=== PATIENT | male | born 1940 | race Caucasian/White ===

== ENCOUNTER → 2018-07-06 08:44 | Outpatient (CLI) | payer MEDICARE, OTHER, SELFPAY ==
[2018-07-06 10:58] LABS: Add Manual Diff / Slide Review NO; Basophils Percent Auto 0.9 % (0-2); Eosinophils Percent Auto 2.3 % (2-4); Hematocrit 43.9 % (41-53); Hemoglobin 15.2 g/dL (13.5-17.5); Lymphocytes Percent Auto 23.2 % (25-40); Mean Corpuscular HGB Conc 34.5 % (30-36); Mean Corpuscular Hemoglobin 32.9 PG (26-34); Mean Corpuscular Volume 95.3 fL (80-100); Monocytes Percent Auto 15.2 % (3-14); Neutrophils Absolute Auto 1900 /uL (3000-5900); Neutrophils Percent Auto 58.4 % (50-75); Platelet Count 241 X10^3/uL (150-400); Red Blood Cell Count 4.61 X10^6/uL (4.5-5.9); Red Cell Distribution Width 14.4 % (11.6-14.8); White Blood Cell Count 3.3 X10^3/uL (4.5-11.0)
[2018-07-06 11:09] LABS: Alanine Aminotransferase 29 IU/L (21-72); Albumin 5.3 g/dL (3.5-5.0); Albumin Globulin Ratio 1.6 (1.0-2.8); Alkaline Phosphatase 65 U/L (38-126); Aspartate Aminotransferase 43 IU/L (17-59); BUN Creatinine Ratio 12.5 (6-22); Bilirubin Total 0.8 mg/dL (0.2-1.3); Blood Urea Nitrogen 15 mg/dL (9-20); Calcium 9.8 mg/dL (8.4-10.2); Carbon Dioxide 31 mmol/L (22-32); Chloride 92 mmol/L (98-107); Cholesterol 206 mg/dL (140-199); Estimated Glomerular Filt Rate 58.7 mL/min (>60); Globulin 3.4 g/dL (1.7-4.1); Glucose 91 mg/dL (80-110); HDL Cholesterol 103 mg/dL (40-60); HEMOLYSIS < 15 (0-50); LDL Cholesterol Calculated 88 mg/dL (<100); Sodium 137 mmol/L (137-145); Total Protein 8.7 g/dL (6.3-8.2); Triglycerides 76 mg/dL (35-150)
[2018-07-06 11:56] LABS: TSH w/ Reflex to FT4 6.22 uIU/mL (0.47-4.68)
[2018-07-06 12:33] LABS: Free T4, Direct Thyroxine 0.94 ng/dL (0.78-2.19)
== END ==
PROVIDERS: Family Provider Family Medicine; PCP Family Medicine; Visit Provider Family Medicine
DX: Z12.5 Encounter for screening for malignant neoplasm of prostate (principal); E03.9 Hypothyroidism, unspecified; E78.5 Hyperlipidemia, unspecified; I10 Essential (primary) hypertension
CPT/HCPCS: 36415; 80053; 80061; 84153; 84439; 84443; 85025

== ENCOUNTER → 2018-08-31 09:19 | Outpatient (CLI) | payer MEDICARE, OTHER, SELFPAY ==
--- NOTE | 2018-08-31 11:58 | DI.CT.S_ITS ---
PROCEDURE: CT CHEST ABD PEL W CON INDICATIONS: surveillance melonoma TECHNIQUE: After the administration of oral and intravenous contrast, 5 mm thick sections acquired from the lung apices to the symphysis. 5 mm coronal and sagittal reformats were performed, with additional 7 mm coronal MIP reformats through the lungs. For radiation dose reduction, the following was used: automated exposure control, adjustment of mA and/or kV according to patient size. COMPARISON: [facility], CT, CT NECK CHEST ABD PELVIS W CON, 11/27/2016, 12:29. [facility], NM, NM BONE SCAN WHOLE BODY, 11/20/2016, 14:32. [facility], CT, CT NECK CHEST ABD PELVIS W CON, 05/29/2016, 13:03. [facility], CT, CT NECK CHEST ABD PELVIS W CON, 11/22/2015, 12:13. [facility], CT, CT NECK CHEST ABDOMEN PELVIS WITH CONTRAST, 09/03/2017, 12:22. FINDINGS: Image quality: Excellent. CHEST: Lungs and pleura: No acute consolidation. Scattered subsegmental atelectasis and/or scarring No pleural effusions or pneumothorax. Central and peripheral airways appear patent and normal in caliber. Mediastinum: Heart size is normal. Coronary artery calcifications are present. No pericardial effusion. No mediastinal or hilar adenopathy by size criteria. Thoracic aorta and central pulmonary arteries are normal in size. Esophagus is normal in caliber. No hiatal hernia. Chest wall: No axillary or supraclavicular adenopathy by size criteria. Thyroid gland negative. ABDOMEN: Solid organs: Liver is normal in size and enhancement. Gallbladder negative. Biliary system is non dilated. Pancreas enhances normally. Spleen is normal in size and enhancement. No left adrenal nodules. Status post right nephrectomy as before. No hydronephrosis. Mildly dilated appearance of the left ureter as before. Unchanged appearance of the left kidney. Peritoneum and bowel: Bowel loops demonstrate normal wall thickness and caliber. No free fluid or air. Colonic diverticulosis is seen without evidence of acute complication. Nodes and vessels: No retroperitoneal or mesenteric adenopathy by size criteria. Aorta and inferior vena cava are normal in size. Miscellaneous: No ventral hernias. PELVIS: Genitourinary: Miscellaneous: No inguinal hernias or adenopathy. Bones: No suspicious bony lesions. No vertebral body compression fractures. IMPRESSION: Overall, grossly stable examination without evidence of active metastatic disease. Status post right nephrectomy. Incidental colonic diverticulosis. Coronary artery disease. Dictated by: Dimitry Osborne M.D. on 08/31/2018 at 14:34 Approved by: Dimitry Osborne M.D. on 08/31/2018 at 14:49
[2018-08-31] MEDS: SODIUM CHLORIDE 0.9% 1,000 ML 500 ML IV (13:46)
== END ==
PROVIDERS: Family Provider Family Medicine; PCP Family Medicine
DX: C34.91 Malignant neoplasm of unspecified part of right bronchus or lung (principal); C64.9 Malignant neoplasm of unspecified kidney, except renal pelvis; C76.0 Malignant neoplasm of head, face and neck; I25.10 Atherosclerotic heart disease of native coronary artery without angina pectoris; K57.90 Diverticulosis of intestine, part unspecified, without perforation or abscess without bleeding
CPT/HCPCS: 70491; 71260; 74177; 80053; 85025; 96360; 96361; Q9967

== ENCOUNTER → 2019-07-12 08:47 | Outpatient (CLI) | payer MEDICARE, OTHER, SELFPAY ==
[2019-07-12 09:34] LABS: Add Manual Diff / Slide Review NO; Basophils Absolute Auto 0 /uL (0-100); Eosinophils Absolute Auto 300 /uL (0-450); Eosinophils Percent Auto 6.9 % (2-4); Hematocrit 43.2 % (41-53); Hemoglobin 14.9 g/dL (13.5-17.5); Lymphocytes Absolute Auto 700 /uL (1100-4500); Lymphocytes Percent Auto 18.9 % (25-40); Mean Corpuscular HGB Conc 34.6 % (30-36); Mean Corpuscular Hemoglobin 33.6 PG (26-34); Mean Corpuscular Volume 97.2 fL (80-100); Monocytes Absolute Auto 500 /uL (0-900); Monocytes Percent Auto 14.7 % (3-14); Neutrophils Absolute Auto 2100 /uL (1500-7000); Neutrophils Percent Auto 58.5 % (50-75); Platelet Count 235 X10^3/uL (150-400); Red Blood Cell Count 4.44 X10^6/uL (4.5-5.9); Red Cell Distribution Width 13.2 % (11.6-14.8); White Blood Cell Count 3.6 X10^3/uL (4.5-11.0)
[2019-07-12 10:03] LABS: Alanine Aminotransferase 20 IU/L (21-72); Albumin 4.9 g/dL (3.5-5.0); Albumin Globulin Ratio 1.5 (1.0-2.8); Alkaline Phosphatase 67 U/L (38-126); Aspartate Aminotransferase 48 IU/L (17-59); Bilirubin Total 0.9 mg/dL (0.2-1.3); Blood Urea Nitrogen 15 mg/dL (9-20); Calcium 9.6 mg/dL (8.4-10.2); Carbon Dioxide 30 mmol/L (22-32); Chloride 86 mmol/L (98-107); Cholesterol 212 mg/dL (140-199); Estimated Glomerular Filt Rate > 60.0 mL/min (>60); Globulin 3.2 g/dL (1.7-4.1); Glucose 107 mg/dL (80-110); HDL Cholesterol 94 mg/dL (40-60); HEMOLYSIS < 15 (0-50); LDL Cholesterol Calculated 103 mg/dL (<100); Potassium 4.6 mmol/L (3.4-5.1); Sodium 129 mmol/L (137-145); Total Protein 8.1 g/dL (6.3-8.2); Triglycerides 77 mg/dL (35-150)
[2019-07-12 10:30] LABS: TSH w/ Reflex to FT4 5.65 uIU/mL (0.47-4.68)
[2019-07-12 10:55] LABS: Free T4, Direct Thyroxine 0.84 ng/dL (0.78-2.19)
== END ==
PROVIDERS: PCP Family Medicine; Visit Provider Family Medicine
DX: E78.5 Hyperlipidemia, unspecified (principal); I10 Essential (primary) hypertension
CPT/HCPCS: 36415; 80053; 80061; 84439; 84443; 85025

== ENCOUNTER → 2019-08-30 10:31 | Outpatient (CLI) | payer MEDICARE, OTHER, SELFPAY ==
--- NOTE | 2019-08-30 10:50 | DI.CT.S_ITS ---
PROCEDURE: CT CHEST ABD PEL W CON INDICATIONS: Surveillance kidney cancer, melanoma TECHNIQUE: After the administration of oral and intravenous contrast, 5 mm thick sections acquired from the lung apices to the symphysis. 5 mm coronal and sagittal reformats were performed, with additional 7 mm coronal MIP reformats through the lungs. For radiation dose reduction, the following was used: automated exposure control, adjustment of mA and/or kV according to patient size. COMPARISON: CT, CT NECK CHEST ABD PELVIS W CON, 05/29/2016, 13:03. [facility], CT, CT SOFT TISSUE NECK W CON, 08/31/2018, 11:39. [facility], DC, DC BONE SCAN WHOLE BODY, 01/07/2018, 13:57. [facility], CT, CT NECK CHEST ABDOMEN PELVIS WITH CONTRAST, 09/03/2017, 12:22. CT, CT NECK CHEST ABD PELVIS W CON, 11/27/2016, 12:29. [place], DC BONE SCAN WHOLE BODY, 11/20/2016, 14:32. [facility], CT, CT CHEST ABD PEL W CON, 08/31/2018, 11:39. FINDINGS: Image quality: Excellent. CHEST: Lungs and pleura: Scattered subsegmental atelectasis and/or scarring. No focal consolidation No pleural effusions or pneumothorax. Central and peripheral airways appear patent and normal in caliber. Mediastinum: Heart size is normal. No pericardial effusion. No mediastinal or hilar adenopathy by size criteria. Thoracic aorta and central pulmonary arteries are normal in size. Esophagus is normal in caliber. No hiatal hernia. Chest wall: No axillary or supraclavicular adenopathy by size criteria. Thyroid gland negative. ABDOMEN: Solid organs: Hepatic steatosis. No focal hepatic lesion. Gallbladder contracted otherwise unremarkable. Biliary system is non dilated. Pancreas enhances normally. Spleen is normal in size and enhancement. No adrenal nodules. Status post right nephrectomy as before. No hydronephrosis. Mildly prominent appearance of the left ureter however this is unchanged. Peritoneum and bowel: Bowel loops demonstrate normal wall thickness and caliber. No free fluid or air. Multiple colonic diverticulosis. Nodes and vessels: No retroperitoneal or mesenteric adenopathy by size criteria. Aorta and inferior vena cava are normal in size. Miscellaneous: No ventral hernias. PELVIS: Genitourinary: Bladder unremarkable Miscellaneous: Small right fat containing inguinal hernia. No pelvic adenopathy. Bones: No suspicious bony lesions. No vertebral body compression fractures. IMPRESSION: Overall, stable examination without evidence of active metastatic disease. Hepatic steatosis. Status post right nephrectomy. Incidental colonic diverticulosis. Dictated by: Dimitry Osborne M.D. on 08/30/2019 at 17:04 Approved by: Dimitry Osborne M.D. on 08/30/2019 at 17:11
[2019-08-30 11:14] LABS: BUN Creatinine Ratio 11.8 (6-22); Blood Urea Nitrogen 13 mg/dL (9-20); Estimated Glomerular Filt Rate > 60.0 mL/min (>60)
== END ==
PROVIDERS: Family Provider Family Medicine; PCP Family Medicine
DX: C43.9 Malignant melanoma of skin, unspecified (principal); C64.1 Malignant neoplasm of right kidney, except renal pelvis; K76.0 Fatty (change of) liver, not elsewhere classified; K57.90 Diverticulosis of intestine, part unspecified, without perforation or abscess without bleeding; K40.90 Unilateral inguinal hernia, without obstruction or gangrene, not specified as recurrent; Z90.5 Acquired absence of kidney
CPT/HCPCS: 36415; 71260; 74177; 82565; 84520; Q9967

== ENCOUNTER 2020-05-30 12:18 | Inpatient (IN) | payer MEDICARE, OTHER, SELFPAY ==
[2020-05-30] VITALS (14 sets, daily range): BP systolic 118–170; BP diastolic 61–90; PULSE 84–110; RESP 12–23; TEMP 36.4–36.7; O2SAT 95–100; BMI 26.4
--- NOTE | 2020-05-30 12:29 | ED.GENADULT ---
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 Four days ago he noticed a moderate size(tennis ball sized) blood clot after having a bowel movement that he describes as fairly usual. Over the ensuing 3 days he has had continued red blood mixed with his stool with his bowel movements. He has not noted any bleeding without a bowel movement. He complains of no chest pain, orthopnea, dyspnea, palpitations, abdominal pain, dysuria, hemorrhoids or rectal pain. He has had no epigastric pain or vomiting. States that he has been off Plavix for a number of years and takes no other blood thinners. Related Data Home Medications Medication Instructions Recorded Confirmed Restasis 1 drp OPHTH BID #0 07/12/16 05/03/20 neomycin-polymyxin B-dexameth 1 drp OPHTH QID #0 06/13/17 05/03/20 [Maxitrol] sodium chloride 1 gm PO DAILY #0 01/13/18 05/03/20 melatonin 5 mg PO BEDTIME PRN 02/10/19 05/03/20 hydrocortisone 1 lesley TP DAILY 09/01/19 05/03/20 Previous Rx's Medication Instructions Recorded betamethasone, augmented 1 lesley TOPICAL BID #1 tube 07/12/16 aspirin 81 mg PO QDAY #90 tab 10/07/17 rosuvastatin 10 mg tablet 10 mg .ROUTE DAILY #90 tab 08/17/19 mirtazapine 30 mg tablet 30 mg PO HS #90 tab 02/10/20 lisinopril 10 mg tablet 10 mg PO DAILY #90 tab 02/15/20 zolpidem 10 mg tablet 10 mg PO BEDTIME #30 tab 03/22/20 hydrochlorothiazide 25 mg tablet See Rx Instructions PO DAILY #135 03/23/20 tab Allergies Allergy/AdvReac Type Severity Reaction Status Date / Time No Known Drug Allergies Allergy Verified 05/30/20 12:29 Review of Systems Review of Systems Narrative: Pertinent positive and negative findings as per HPI Remainder of review of systems is otherwise unremarkable for Constitutional: Fevers, chills, weakness ENT: No sore throat, neck pain, ear pain : Dysuria, hematuria, flank pain MS: Muscle weakness, numbness, joint swelling or warmth Neuro: Syncope, dizziness, tingling 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) Diverticulosis of large intestine without hemorrhage (Chronic 01/13/18) Essential hypertension (Chronic 02/27/11) Hearing loss (Chronic) Hyperlipidemia (Chronic 02/27/11) Hypertension (Chronic) Hyponatremia (Inactive) Kidney disease (Chronic ~12/2014) Measles (Resolved) Melanoma (Chronic ~09/2014) Melanoma (Inactive) Mumps (Resolved) Neoplasm of kidney (Resolved 12/01/14) Peripheral vascular disease (Chronic ~12/2014) Rosacea (Chronic) Scoliosis (Chronic ~09/2014) Skin cancer of anterior chest (Inactive) Skin cancer of forehead (Inactive) Status post nephrectomy (Inactive 02/02/15) TIA (transient ischemic attack) (Chronic) Tinnitus (Chronic) Surgical History Anesthesia (Resolved) History of kidney removal (Inactive) History of nephrectomy (11/25/14) Surgical procedure planned (Resolved ~09/2014) Social History marital status: Smoking Status: Never smoker alcohol intake: current substance use type: does not use Smoking Status: Never smoker alcohol intake frequency: 0-2 drinks per day Substance Use Type: does not use Exam Narrative Exam Narrative: General: Healthy appearing, in no acute distress. Able to give a complete and coherent history. Well-nourished well-developed HEENT: Slightly pale, Moist mucous membranes, normal sclera with reactive pupils, Neck: No JVD, supple Respiratory: Lungs are clear to auscultation, no wheezing no rales no rhonchi. Full and symmetrical air movement Cardiac: Regular rate and rhythm no murmurs no bruits Abdomen: Soft nontender good bowel tones, no flank pain Skin: Warm and dry, no rashes Neurologic: Grossly neurologically intact with no obvious asymmetries or abnormalities Extremities: No trauma, well perfused Psych: Cooperative, appropriate insight and affect Initial Vital Signs Initial Vital Signs: Vital Signs Pulse Oximetry 97 05/30/20 12:27 Course Orders Ordered: ED Orders 05/30/20 12:30 Complete Blood Count AUTO DIFF Stat Comprehensive Metabolic Panel Stat Troponin I Stat Type and Screen Stat Discontinued Medications Sodium Chloride (Normal Saline 0.9%) 1,000 mls @ 1,000 mls/hr IV BOLUS ONE Stop: 05/30/20 13:55 Last Infusion: 05/30/20 15:12 Dose: 0 mls/hr Documented by: Admin: 05/30/20 13:29 Dose: 1,000 mls/hr Documented by: CAMILA Vital Signs Vital signs: Vital Signs - 8 hr 05/30/20 12:27 05/30/20 12:29 05/30/20 12:30 Temperature 98.0 F Pulse Rate 110 H 104 H Respiratory Rate 15 22 Blood Pressure 153/74 H 134/74 Pulse Oximetry 97 97 98 05/30/20 13:00 05/30/20 13:30 05/30/20 14:00 Temperature Pulse Rate 96 H 93 H 89 Respiratory Rate 16 21 13 Blood Pressure 121/61 132/72 125/67 Pulse Oximetry 97 96 97 05/30/20 14:30 05/30/20 15:00 Temperature Pulse Rate 95 H 88 Respiratory Rate 13 18 Blood Pressure Pulse Oximetry 100 99 Medical Decision Making Medical Records Medical records reviewed: Yes I reviewed the patient's medical records. Lab Data Lab results reviewed: Yes I reviewed the patient's lab results. Result diagrams: 05/30/20 12:30 05/30/20 12:30 Labs: Lab Results 05/30/20 05/30/20 05/30/20 Range/Units 12:30 12:30 12:30 WBC 6.6 (4.5-11.0) X10^3/uL RBC 2.70 L (4.5-5.9) X10^6/uL Hgb 9.1 L (13.5-17.5) g/dL Hct 26.3 L (41-53) % MCV 97.2 (80-100) fL MCH 33.8 (26-34) PG MCHC 34.8 (30-36) % RDW 13.2 (11.6-14.8) % Plt Count 213 (150-400) X10^3/uL Neut % (Auto) 79.3 H (50-75) % Lymph % (Auto) 9.5 L (25-40) % [place] % (Auto) 10.2 (3-14) % Eos % (Auto) 0.6 L (2-4) % Baso % (Auto) 0.4 (0-2) % Neut # (Auto) 5200 (4478-7122) /uL Lymph # (Auto) 600 L (7012-7749) /uL [place] # (Auto) 700 (0-900) /uL Eos # (Auto) 0 (0-450) /uL Baso # (Auto) 0 (0-100) /uL Sodium 128 L (137-145) mmol/L Potassium 4.1 (3.4-5.1) mmol/L Chloride 91 L (98-107) mmol/L Carbon Dioxide 27 (22-32) mmol/L BUN 19 (9-20) mg/dL Creatinine 1.29 H (0.66-1.25) mg/dL Estimated GFR 53.7 L (>60) mL/min BUN/Creatinine Ratio 14.7 (6-22) Glucose 117 H (80-110) mg/dL Calcium 9.2 (8.4-10.2) mg/dL Total Bilirubin 0.3 (0.2-1.3) mg/dL AST 44 (17-59) IU/L ALT 25 (<50) IU/L Alkaline Phosphatase 60 (38-126) U/L Troponin I (0.01-0.034) ng/mL Total Protein 7.3 (6.3-8.2) g/dL Albumin 4.4 (3.5-5.0) g/dL Globulin 2.9 (1.7-4.1) g/dL Albumin/Globulin Ratio 1.5 (1.0-2.8) Blood Type A Positive Antibody Screen Negative 05/30/20 Range/Units 12:30 WBC (4.5-11.0) X10^3/uL RBC (4.5-5.9) X10^6/uL Hgb (13.5-17.5) g/dL Hct (41-53) % MCV (80-100) fL MCH (26-34) PG MCHC (30-36) % RDW (11.6-14.8) % Plt Count (150-400) X10^3/uL Neut % (Auto) (50-75) % Lymph % (Auto) (25-40) % [place] % (Auto) (3-14) % Eos % (Auto) (2-4) % Baso % (Auto) (0-2) % Neut # (Auto) (7619-0431) /uL Lymph # (Auto) (5287-0957) /uL [place] # (Auto) (0-900) /uL Eos # (Auto) (0-450) /uL Baso # (Auto) (0-100) /uL Sodium (137-145) mmol/L Potassium (3.4-5.1) mmol/L Chloride (98-107) mmol/L Carbon Dioxide (22-32) mmol/L BUN (9-20) mg/dL Creatinine (0.66-1.25) mg/dL Estimated GFR (>60) mL/min BUN/Creatinine Ratio (6-22) Glucose (80-110) mg/dL Calcium (8.4-10.2) mg/dL Total Bilirubin (0.2-1.3) mg/dL AST (17-59) IU/L ALT (<50) IU/L Alkaline Phosphatase (38-126) U/L Troponin I < 0.012 (0.01-0.034) ng/mL Total Protein (6.3-8.2) g/dL Albumin (3.5-5.0) g/dL Globulin (1.7-4.1) g/dL Albumin/Globulin Ratio (1.0-2.8) Blood Type Antibody Screen MDM Narrative Medical decision making narrative: 79-year-old gentleman presents with 4 days of rectal bleeding, bright red blood mixed in with stool. General malaise but no palpitation, chest pain or significant dyspnea. Prior history of diverticular bleeding with most recent colonoscopy in 2017 notable for diverticulosis. H&H is June 2019 and is 14.9/43.2 today is 9.1/26.3 He remains relatively asymptomatic at this point and I do not believe transfusion is required. Was mildly tachycardic and he was given a L of fluid. Believe that admission for observation will be appropriate. Will contact surgery to begin. 2:57 Dr Rose will be happy to consult. Requests that Dr Solorzano (or admtting doc) put in consult order if they do want a formal consult. Care is reviewed with Dr. Ochoa who will admit the patient. Discharge Plan Departure Patient Disposition: Admitted As Inpatient Admit Date/Time: 05/30/20 15:22 Admit Provider: No Ochoa
[2020-05-30 13:03] LABS: Add Manual Diff / Slide Review NO; Basophils Absolute Auto 0 /uL (0-100); Basophils Percent Auto 0.4 % (0-2); Eosinophils Absolute Auto 0 /uL (0-450); Eosinophils Percent Auto 0.6 % (2-4); Hematocrit 26.3 % (41-53); Hemoglobin 9.1 g/dL (13.5-17.5); Lymphocytes Absolute Auto 600 /uL (1100-4500); Lymphocytes Percent Auto 9.5 % (25-40); Mean Corpuscular HGB Conc 34.8 % (30-36); Mean Corpuscular Hemoglobin 33.8 PG (26-34); Mean Corpuscular Volume 97.2 fL (80-100); Monocytes Absolute Auto 700 /uL (0-900); Monocytes Percent Auto 10.2 % (3-14); Neutrophils Absolute Auto 5200 /uL (1500-7000); Neutrophils Percent Auto 79.3 % (50-75); Platelet Count 213 X10^3/uL (150-400); Red Cell Distribution Width 13.2 % (11.6-14.8); White Blood Cell Count 6.6 X10^3/uL (4.5-11.0)
[2020-05-30 13:08] LABS: Alanine Aminotransferase 25 IU/L (<50); Albumin 4.4 g/dL (3.5-5.0); Albumin Globulin Ratio 1.5 (1.0-2.8); Alkaline Phosphatase 60 U/L (38-126); Aspartate Aminotransferase 44 IU/L (17-59); BUN Creatinine Ratio 14.7 (6-22); Bilirubin Total 0.3 mg/dL (0.2-1.3); Blood Urea Nitrogen 19 mg/dL (9-20); Calcium 9.2 mg/dL (8.4-10.2); Carbon Dioxide 27 mmol/L (22-32); Chloride 91 mmol/L (98-107); Estimated Glomerular Filt Rate 53.7 mL/min (>60); Globulin 2.9 g/dL (1.7-4.1); Glucose 117 mg/dL (80-110); HEMOLYSIS < 15 (0-50); Potassium 4.1 mmol/L (3.4-5.1); Sodium 128 mmol/L (137-145); Total Protein 7.3 g/dL (6.3-8.2)
[2020-05-30 13:20] LABS: Troponin I < 0.012 ng/mL (0.01-0.034)
[2020-05-30] MEDS: SODIUM CHLORIDE 0.9% 1,000 ML 1000 ML IV (13:29)
[2020-05-30 16:05] LABS: COVID19 -Nasal RAPID Negative (Negative)
[2020-05-30] MEDS: SODIUM CHLORIDE 0.9% 1,000 ML 75 ML IV (16:44)
[2020-05-30 17:00] LABS: Add Manual Diff / Slide Review NO; Basophils Absolute Auto 0 /uL (0-100); Basophils Percent Auto 0.5 % (0-2); Eosinophils Absolute Auto 0 /uL (0-450); Eosinophils Percent Auto 0.8 % (2-4); Hemoglobin 8.8 g/dL (13.5-17.5); Lymphocytes Absolute Auto 800 /uL (1100-4500); Lymphocytes Percent Auto 16.6 % (25-40); Mean Corpuscular Hemoglobin 34.1 PG (26-34); Mean Corpuscular Volume 97.5 fL (80-100); Monocytes Absolute Auto 600 /uL (0-900); Monocytes Percent Auto 11.2 % (3-14); Neutrophils Absolute Auto 3600 /uL (1500-7000); Neutrophils Percent Auto 70.9 % (50-75); Platelet Count 189 X10^3/uL (150-400); Red Blood Cell Count 2.57 X10^6/uL (4.5-5.9); Red Cell Distribution Width 13.2 % (11.6-14.8); White Blood Cell Count 5.1 X10^3/uL (4.5-11.0)
--- NOTE | 2020-05-30 17:20 | PM.HP.1 ---
History of Present Illness History of Present Illness Date Patient Seen: 05/30/20 Time Patient Seen: 16:30 Chief complaint: RECTAL BLEEDING SINCE LAST FRIDAY Narrative: Pt is a 79yo man with HTN, hyperlipidemia, hyponatremia, hx of diverticulitis and diverticular bleed, hx of CVA on baby aspirin alone, and hx of CABG who presents with rectal bleeding. The pt reports that he usually has 2 BMs/day, stimulated by a glycerin suppository. He states that the morning of 05/26, with his first BM, he had a significant clot that passed, around the size of a baseball. He additionally had some bright red blood. He then continued to have bleeding with his next BM in the day. 05/27, 05/28, and 05/29 he continued to have bleeding, although progressively less. This morning, with his first BM there was not blood, however with his second BM there was again blood. All of the blood passed has been bright red to darker red in color. he denies any melena. He denies any significant abdominal pain. He denies any bleeding between his BMs. He does report feeling a fatigued today, but denies any overt lightheadedness. He denies any SOB, chest pain, palpitations. He reports that it is not uncommon for him to have a small amount of blood in his stool on occasion, but it is not usually this severe, and usually is just for one BM, not multiple consecutively. The pt was hospitalized with a presumed diverticular bleed in 2016 with a precipitous drop in his H/H. He was transfused 2 units of PRBCs at the time, and underwent upper and lower endoscopy, which revealed extensive diverticulitis, but no active bleeding. 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) Diverticulosis of large intestine without hemorrhage (Chronic 01/13/18) Essential hypertension (Chronic 02/27/11) Hearing loss (Chronic) Hyperlipidemia (Chronic 02/27/11) Hypertension (Chronic) Hyponatremia (Inactive) Kidney disease (Chronic ~12/2014) Measles (Resolved) Melanoma (Chronic ~09/2014) Melanoma (Inactive) Mumps (Resolved) Neoplasm of kidney (Resolved 12/01/14) Peripheral vascular disease (Chronic ~12/2014) Rosacea (Chronic) Scoliosis (Chronic ~09/2014) Skin cancer of anterior chest (Inactive) Skin cancer of forehead (Inactive) Status post nephrectomy (Inactive 02/02/15) TIA (transient ischemic attack) (Chronic) Tinnitus (Chronic) Surgical History Anesthesia (Resolved) History of kidney removal (Inactive) History of nephrectomy (11/25/14) Surgical procedure planned (Resolved ~09/2014) Family & Social History Social History: household members none Prior Living Arrangements House Safety & Behavioral: Feels Safe in Current Yes Environment Been Physically Hurt or No Threatened By a Person Suicidal Ideation Description None Suicide Plan Description No Plan Tobacco & Substance use: Smoking Status Never smoker alcohol intake current alcohol intake frequency 0-2 drinks per day Substance Use Type does not use Meds Home Medications and Allergies Home Medications Medication Instructions Recorded Confirmed Type Restasis 1 drp OPHTH BID #0 07/12/16 05/03/20 History betamethasone, augmented 1 lesley TOPICAL BID #1 tube 07/12/16 05/03/20 Rx aspirin 81 mg PO QDAY #90 tab 10/07/17 05/03/20 Rx sodium chloride 1 gm PO DAILY #0 01/13/18 05/03/20 History melatonin 5 mg PO BEDTIME PRN 02/10/19 05/03/20 History rosuvastatin 10 mg tablet 10 mg .ROUTE DAILY #90 tab 08/17/19 05/03/20 Rx mirtazapine 30 mg tablet 30 mg PO HS #90 tab 02/10/20 05/03/20 Rx lisinopril 10 mg tablet 10 mg PO DAILY #90 tab 02/15/20 05/03/20 Rx zolpidem 10 mg tablet 10 mg PO BEDTIME #30 tab 03/22/20 05/03/20 Rx hydrochlorothiazide 25 mg tablet See Rx Instructions PO DAILY #135 03/23/20 05/03/20 Rx tab Allergies Allergy/AdvReac Type Severity Reaction Status Date / Time No Known Drug Allergies Allergy Verified 05/30/20 12:29 Exam Vital Signs (past 8 hours): - 05/30/20 12:27 05/30/20 12:29 05/30/20 12:30 Temperature 98.0 F Pulse Rate 110 H 104 H Respiratory Rate 15 22 Blood Pressure 153/74 H 134/74 Pulse Oximetry 97 97 98 05/30/20 13:00 05/30/20 13:30 05/30/20 14:00 Temperature Pulse Rate 96 H 93 H 89 Respiratory Rate 16 21 13 Blood Pressure 121/61 132/72 125/67 Pulse Oximetry 97 96 97 05/30/20 14:30 05/30/20 15:00 05/30/20 15:30 Temperature Pulse Rate 95 H 88 92 H Respiratory Rate 13 18 23 Blood Pressure Pulse Oximetry 100 99 97 05/30/20 15:41 05/30/20 16:00 05/30/20 17:05 Temperature 97.6 F Pulse Rate 90 86 99 H Respiratory Rate 20 12 20 Blood Pressure 170/90 H 145/78 H 146/89 H Pulse Oximetry 98 96 99 Oxygen Delivery Method Room Air Narrative Exam Narrative: GEN - alert, cooperative and no distress HEENT - normocephalic and atraumatic, sclera white, conjunctiva pale NECK - FROM, no adenopathy, no JVD HEART - RRR, S1, S2 normal, no S3 or S4, no murmurs LUNGS - symmetric chest rise, no accessory muscles, clear to auscultation bilaterally ABD - nondistended, normal bowel sounds, soft, nontender and no hepatomegaly, splenomegaly or masses EXT - no cyanosis, clubbing or edema SKIN - no rashes or suspicious lesions NEURO - no gross deficits Objective Labs Result Diagrams: 05/30/20 16:55 05/30/20 12:30 Labs: Laboratory Results - last 24 hr 05/30/20 05/30/20 05/30/20 12:30 12:30 12:30 WBC 6.6 RBC 2.70 L Hgb 9.1 L Hct 26.3 L MCV 97.2 MCH 33.8 MCHC 34.8 RDW 13.2 Plt Count 213 Neut % (Auto) 79.3 H Lymph % (Auto) 9.5 L [place] % (Auto) 10.2 Eos % (Auto) 0.6 L Baso % (Auto) 0.4 Neut # (Auto) 5200 Lymph # (Auto) 600 L [place] # (Auto) 700 Eos # (Auto) 0 Baso # (Auto) 0 Sodium 128 L Potassium 4.1 Chloride 91 L Carbon Dioxide 27 BUN 19 Creatinine 1.29 H Estimated GFR 53.7 L BUN/Creatinine Ratio 14.7 Glucose 117 H Calcium 9.2 Total Bilirubin 0.3 AST 44 ALT 25 Alkaline Phosphatase 60 Troponin I Total Protein 7.3 Albumin 4.4 Globulin 2.9 Albumin/Globulin Ratio 1.5 COVID-19 PCR Blood Type A Positive Antibody Screen Negative 05/30/20 05/30/20 05/30/20 12:30 15:40 16:55 WBC 5.1 RBC 2.57 L Hgb 8.8 L Hct 25.0 L MCV 97.5 MCH 34.1 H MCHC 35.0 RDW 13.2 Plt Count 189 Neut % (Auto) 70.9 Lymph % (Auto) 16.6 L [place] % (Auto) 11.2 Eos % (Auto) 0.8 L Baso % (Auto) 0.5 Neut # (Auto) 3600 Lymph # (Auto) 800 L [place] # (Auto) 600 Eos # (Auto) 0 Baso # (Auto) 0 Sodium Potassium Chloride Carbon Dioxide BUN Creatinine Estimated GFR BUN/Creatinine Ratio Glucose Calcium Total Bilirubin AST ALT Alkaline Phosphatase Troponin I < 0.012 Total Protein Albumin Globulin Albumin/Globulin Ratio COVID-19 PCR Negative Blood Type Antibody Screen Assessment & Plan Assessment & Plan narrative: Pt is a 79yo man with HTN, hyperlipidemia, hyponatremia, hx of diverticulitis and diverticular bleed, hx of CVA on baby aspirin alone, and hx of CABG who presents with GI bleeding, presumed lower GI based on character and hx of extensive diverticulitis. 1) GI bleed: Hemodynamically stable, but with significant drop in H/H at admission. Symptomatically, bleeding had slowed - but then increased again late morning today. Tachycardia in the ED now improved. - Surgery consulted, appreciate care - Continue to monitor H/H closely - No transfusion for now, however low threshold to transfuse if H/H drops further due to hx of heart disease - NPO for now 2) CM: Most likely due to volume depletion. S/P 1L NS in the ED. - Continue mIVF overnight - Repeat BMP in the AM 3) Hyponatremia: Stable - Continue NaCl tablet 4) HTN, Hyperlipidemia: - Continue home HCTZ, Lisinopril, Rosuvastatin - Hold home Aspirin FEN: NPO DVT prophylaxis: SCDs Dispo: Pending BMs without bleeding, stabilizatiion of H/H, advancing diet. Anticipate 2 midnights.
--- NOTE | 2020-05-30 17:26 | P.CONS_ITS ---
History of Present Illness Consult details Date Patient Seen: 05/30/20 Time Patient Seen: 17:30 Chief complaint: RECTAL BLEEDING SINCE LAST FRIDAY Requesting provider: No Ochoa Narrative: This is a 79yo man with HTN, hyperlipidemia, hyponatremia, hx of diverticulosis and suspected diverticular bleed in 2017, hx of CVA, takes ASA, hx of CABG. He presented to the ER today with rectal bleeding which started four days ago. On that day passed a baseball sized clot. Since then he continues to have intermittent BRPBR. He reports that his bleeding has been progressively less. This morning, with his first BM there was no blood, however with his second BM there was again blood. All of the blood passed has been bright red to darker red in color. he denies any melena. He denies any significant abdominal pain or rectal pain. He says he has some hemorrhoids which he treats with hemorrhoid cream which takes care of his symptoms. He reports that it is not uncommon for him to have a small amount of blood in his stool on occasion, but it is not usually this severe, and usually is just for one BM, not multiple consecutively. The pt was hospitalized with a presumed diverticular bleed in 2017 with a precipitous drop in his H/H. He was transfused 2 units of PRBCs at the time, and underwent upper and lower endoscopy, which revealed extensive diverticulitis, but no active bleeding. Diverticular bleed was suspected since there was bright red blood mixed with stool in his colon. The prep was very poor and a bleeding locus was not identified. ROS: He reports feeling a fatigued today, but denies any overt lightheadedness. He denies any SOB, chest pain, palpitations. Thirteen system review is otherwise negative other than as mentioned below and in HPI. PE: GENERAL: Well groomed and cooperative. Appears stated age. Answers questions promptly and appropriately. Vital signs noted. HENT: Normocephalic, atraumatic. Hearing intact. Scars present on right neck from neck dissection surgery for melanoma. Oral mucosa is pink and moist. EYES: Conjunctiva pink, sclera white, no periorbital swelling. CARDIOVASCULAR: Regular rate. No pedal edema. RESPIRATORY: Non-tachypneic, breathing comfortably on room air. GASTROINTESTINAL: Abdomen soft and non-distended; non tender; vertical midline well healed incisional scar GENITALURINARY: No flank tenderness. MUSCULOSKELETAL: Equal tone and mass bilaterally. SKIN: Warm, dry, soft, appropriate color for ethnicity. No other lesions, rashes, or wounds. NEURO: Alert and Oriented X 3. No gross sensory deficits, or cognitive issues. PSYCH: Appropriate mood and affect, normal intellect Meds Home Medications and Allergies Home Medications Medication Instructions Recorded Confirmed Type Restasis 1 drp OPHTH BID #0 07/12/16 05/30/20 History betamethasone, augmented 1 lesley TOPICAL BID #1 tube 07/12/16 05/30/20 Rx aspirin 81 mg PO QDAY #90 tab 10/07/17 05/30/20 Rx sodium chloride 1 gm PO DAILY #0 01/13/18 05/30/20 History melatonin 5 mg PO BEDTIME PRN 02/10/19 05/30/20 History rosuvastatin 10 mg tablet 10 mg .ROUTE DAILY #90 tab 08/17/19 05/30/20 Rx mirtazapine 30 mg tablet 30 mg PO HS #90 tab 02/10/20 05/30/20 Rx lisinopril 10 mg tablet 10 mg PO DAILY #90 tab 02/15/20 05/30/20 Rx zolpidem 10 mg tablet 10 mg PO BEDTIME #30 tab 03/22/20 05/30/20 Rx hydrochlorothiazide 25 mg tablet See Rx Instructions PO DAILY #135 03/23/20 05/30/20 Rx tab Allergies Allergy/AdvReac Type Severity Reaction Status Date / Time No Known Drug Allergies Allergy Verified 05/30/20 12:29 Exam Vital Signs (past 8 hours): - 05/30/20 12:27 05/30/20 12:29 05/30/20 12:30 Temperature 98.0 F Pulse Rate 110 H 104 H Respiratory Rate 15 22 Blood Pressure 153/74 H 134/74 Pulse Oximetry 97 97 98 05/30/20 13:00 05/30/20 13:30 05/30/20 14:00 Temperature Pulse Rate 96 H 93 H 89 Respiratory Rate 16 21 13 Blood Pressure 121/61 132/72 125/67 Pulse Oximetry 97 96 97 05/30/20 14:30 05/30/20 15:00 05/30/20 15:30 Temperature Pulse Rate 95 H 88 92 H Respiratory Rate 13 18 23 Blood Pressure Pulse Oximetry 100 99 97 05/30/20 15:41 05/30/20 16:00 05/30/20 17:05 Temperature 97.6 F Pulse Rate 90 86 99 H Respiratory Rate 20 12 20 Blood Pressure 170/90 H 145/78 H 146/89 H Pulse Oximetry 98 96 99 Oxygen Delivery Method Room Air Objective Labs Result Diagrams: 05/30/20 16:55 05/30/20 12:30 Labs: Laboratory Results - last 24 hr 05/30/20 05/30/20 05/30/20 12:30 12:30 12:30 WBC 6.6 RBC 2.70 L Hgb 9.1 L Hct 26.3 L MCV 97.2 MCH 33.8 MCHC 34.8 RDW 13.2 Plt Count 213 Neut % (Auto) 79.3 H Lymph % (Auto) 9.5 L [place] % (Auto) 10.2 Eos % (Auto) 0.6 L Baso % (Auto) 0.4 Neut # (Auto) 5200 Lymph # (Auto) 600 L [place] # (Auto) 700 Eos # (Auto) 0 Baso # (Auto) 0 Sodium 128 L Potassium 4.1 Chloride 91 L Carbon Dioxide 27 BUN 19 Creatinine 1.29 H Estimated GFR 53.7 L BUN/Creatinine Ratio 14.7 Glucose 117 H Calcium 9.2 Total Bilirubin 0.3 AST 44 ALT 25 Alkaline Phosphatase 60 Troponin I Total Protein 7.3 Albumin 4.4 Globulin 2.9 Albumin/Globulin Ratio 1.5 COVID-19 PCR Blood Type A Positive Antibody Screen Negative 05/30/20 05/30/20 05/30/20 12:30 15:40 16:55 WBC 5.1 RBC 2.57 L Hgb 8.8 L Hct 25.0 L MCV 97.5 MCH 34.1 H MCHC 35.0 RDW 13.2 Plt Count 189 Neut % (Auto) 70.9 Lymph % (Auto) 16.6 L [place] % (Auto) 11.2 Eos % (Auto) 0.8 L Baso % (Auto) 0.5 Neut # (Auto) 3600 Lymph # (Auto) 800 L [place] # (Auto) 600 Eos # (Auto) 0 Baso # (Auto) 0 Sodium Potassium Chloride Carbon Dioxide BUN Creatinine Estimated GFR BUN/Creatinine Ratio Glucose Calcium Total Bilirubin AST ALT Alkaline Phosphatase Troponin I < 0.012 Total Protein Albumin Globulin Albumin/Globulin Ratio COVID-19 PCR Negative Blood Type Antibody Screen Assessment & Plan Assessment and plan (1) Lower gastrointestinal hemorrhage: Status: Acute (2) Diverticulosis of large intestine with hemorrhage: Status: Resolved (3) Essential hypertension: Status: Chronic (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 The bleeding has slowed, per the patient. He says he does not want a colonoscopy if it is going to be routine. I tried several times to explain to him that it is not a routine colonoscopy if we are trying to identify and treat bleeding. He is reticent to go through bowel prep and says he could not do it last time (consistent with Dr. Shannon's findings on the scope, which was mostly stool). The patient said he would like to see how the labs go over night and he would like his doctor to decide whether he needs a scope. Recommendations: Follow serial hgb clear liquid diet Bowel prep tomorrow if colonoscopy is desired for friday Transfusion and home meds per primary doctor COVID-19 COVID-19 status: Negative Result date/Date tested (Pos, Neg/Pending): 05/30/20 Time Spent With Patient Time with patient: 25 - 35 minutes
[2020-05-30] MEDS: MIRTAZAPINE 15 MG TABLET 30 MG PO (23:46)
[2020-05-30] MEDS: ZOLPIDEM 5 MG TABLET 10 MG PO (23:47)
[2020-05-31] VITALS (13 sets, daily range): BP systolic 101–143; BP diastolic 66–93; PULSE 80–102; RESP 15–18; TEMP 36.3–37.4; O2SAT 95–99
[2020-05-31 05:50] LABS: Add Manual Diff / Slide Review NO; Basophils Absolute Auto 0 /uL (0-100); Basophils Percent Auto 0.7 % (0-2); Eosinophils Absolute Auto 100 /uL (0-450); Eosinophils Percent Auto 2.2 % (2-4); Hematocrit 22.7 % (41-53); Hemoglobin 7.8 g/dL (13.5-17.5); Lymphocytes Absolute Auto 600 /uL (1100-4500); Lymphocytes Percent Auto 15.9 % (25-40); Mean Corpuscular HGB Conc 34.2 % (30-36); Mean Corpuscular Hemoglobin 33.7 PG (26-34); Mean Corpuscular Volume 98.5 fL (80-100); Monocytes Absolute Auto 400 /uL (0-900); Monocytes Percent Auto 12.2 % (3-14); Neutrophils Absolute Auto 2500 /uL (1500-7000); Platelet Count 176 X10^3/uL (150-400); Red Blood Cell Count 2.31 X10^6/uL (4.5-5.9); Red Cell Distribution Width 13.2 % (11.6-14.8); White Blood Cell Count 3.6 X10^3/uL (4.5-11.0)
[2020-05-31 05:58] LABS: BUN Creatinine Ratio 14.6 (6-22); Blood Urea Nitrogen 15 mg/dL (9-20); Carbon Dioxide 25 mmol/L (22-32); Chloride 98 mmol/L (98-107); Estimated Glomerular Filt Rate > 60.0 mL/min (>60); Glucose 100 mg/dL (80-110); HEMOLYSIS < 15 (0-50); Potassium 3.7 mmol/L (3.4-5.1); Sodium 129 mmol/L (137-145)
--- NOTE | 2020-05-31 06:28 | PC.NURSE ---
Summary- Patient denies pain this shift. No bowel movement over the night.
[2020-05-31] MEDS: SODIUM CHLORIDE 0.9% 1,000 ML 75 ML IV (06:44)
--- NOTE | 2020-05-31 09:11 | PM.PN.1 ---
Subjective Subjective Date Patient Seen: 05/31/20 Time Patient Seen: 07:30 Interval history: Pt reports feeling well. He has not had a BM since being hospitalized, and no evidence of bleeding as a result. He denies any chest pain, SOB. He slept well last night, and is feeling rested but still fatigued. Exam Vital Signs (past 8 hours): - 05/31/20 03:55 05/31/20 08:00 Temperature 99.0 F 98.6 F Pulse Rate 86 84 Respiratory Rate 16 15 Blood Pressure 101/68 120/66 Pulse Oximetry 99 95 Oxygen Delivery Method Room Air Oxygen Flow Rate 0 Narrative Exam Narrative: GEN - alert, cooperative and no distress HEENT - normocephalic and atraumatic, sclera white, conjunctiva pale HEART - RRR, S1, S2 normal, no S3 or S4, no murmurs LUNGS - symmetric chest rise, no accessory muscles, clear to auscultation bilaterally ABD - nondistended, normal bowel sounds, soft, nontender and no hepatomegaly, splenomegaly or masses EXT - no edema NEURO - no gross deficits Objective Labs Result Diagrams: 05/31/20 05:26 05/31/20 05:26 Labs: Laboratory Results - last 24 hr 05/30/20 05/30/20 05/30/20 12:30 12:30 12:30 WBC 6.6 RBC 2.70 L Hgb 9.1 L Hct 26.3 L MCV 97.2 MCH 33.8 MCHC 34.8 RDW 13.2 Plt Count 213 Neut % (Auto) 79.3 H Lymph % (Auto) 9.5 L [place] % (Auto) 10.2 Eos % (Auto) 0.6 L Baso % (Auto) 0.4 Neut # (Auto) 5200 Lymph # (Auto) 600 L [place] # (Auto) 700 Eos # (Auto) 0 Baso # (Auto) 0 Sodium 128 L Potassium 4.1 Chloride 91 L Carbon Dioxide 27 BUN 19 Creatinine 1.29 H Estimated GFR 53.7 L BUN/Creatinine Ratio 14.7 Glucose 117 H Calcium 9.2 Total Bilirubin 0.3 AST 44 ALT 25 Alkaline Phosphatase 60 Troponin I Total Protein 7.3 Albumin 4.4 Globulin 2.9 Albumin/Globulin Ratio 1.5 COVID-19 PCR Blood Type A Positive Antibody Screen Negative Crossmatch See Detail 05/30/20 05/30/2005/30/20 12:30 15:40 16:55 WBC 5.1 RBC 2.57 L Hgb 8.8 L Hct 25.0 L MCV 97.5 MCH 34.1 H MCHC 35.0 RDW 13.2 Plt Count 189 Neut % (Auto) 70.9 Lymph % (Auto) 16.6 L [place] % (Auto) 11.2 Eos % (Auto) 0.8 L Baso % (Auto) 0.5 Neut # (Auto) 3600 Lymph # (Auto) 800 L [place] # (Auto) 600 Eos # (Auto) 0 Baso # (Auto) 0 Sodium Potassium Chloride Carbon Dioxide BUN Creatinine Estimated GFR BUN/Creatinine Ratio Glucose Calcium Total Bilirubin AST ALT Alkaline Phosphatase Troponin I < 0.012 Total Protein Albumin Globulin Albumin/Globulin Ratio COVID-19 PCR Negative Blood Type Antibody Screen Crossmatch 05/31/20 05/31/20 05:26 05:26 WBC 3.6 L RBC 2.31 L Hgb 7.8 L Hct 22.7 L MCV 98.5 MCH 33.7 MCHC 34.2 RDW 13.2 Plt Count 176 Neut % (Auto) 69.0 Lymph % (Auto) 15.9 L [place] % (Auto) 12.2 Eos % (Auto) 2.2 Baso % (Auto) 0.7 Neut # (Auto) 2500 Lymph # (Auto) 600 L [place] # (Auto) 400 Eos # (Auto) 100 Baso # (Auto) 0 Sodium 129 L Potassium 3.7 Chloride 98 Carbon Dioxide 25 BUN 15 Creatinine 1.03 Estimated GFR > 60.0 BUN/Creatinine Ratio 14.6 Glucose 100 Calcium 8.0 L Total Bilirubin AST ALT Alkaline Phosphatase Troponin I Total Protein Albumin Globulin Albumin/Globulin Ratio COVID-19 PCR Blood Type Antibody Screen Crossmatch Assessment & Plan Assessment & Plan narrative: Pt is a 79yo man with HTN, hyperlipidemia, hyponatremia, hx of diverticulitis and diverticular bleed, hx of CVA on baby aspirin alone, and hx of CABG who presents with GI bleeding, presumed lower GI based on character and hx of extensive diverticulitis. 1) GI bleed: Hemodynamically stable, but with significant drop in H/H at admission. Acute anemia due to acute blood loss from GI bleed. Now with additional drop in H/H with Hgb from 8.8 to 7.8 - can not fully attribute to dilutional. - Surgery consulted, appreciate care - Recommend pt undergo colonoscopy. He will consider. - Continue to monitor H/H closely - 1 unit PRBC transfusion now. Repeat H/H after tranfusion. May need additional unit. - Clear liquid diet as per surgery 2) CM: Resolved. Most likely due to volume depletion. S/P 1L NS in the ED. - Decrease mIVF due to clear liquid diet 3) Hyponatremia: Stable - Continue NaCl tablet 4) HTN, Hyperlipidemia: - Continue home HCTZ, Lisinopril, Rosuvastatin - Hold home Aspirin FEN: Clear liquid diet DVT prophylaxis: SCDs Dispo: Pending BMs without bleeding, stabilizatiion of H/H, advancing diet.
[2020-05-31] MEDS: lisinopriL 10 MG TABLET PO (10:12)
[2020-05-31] MEDS: ROSUVASTATIN 10 MG TABLET PO (10:12)
[2020-05-31] MEDS: hydroCHLOROthiazide 25 MG TABLET PO (10:13)
[2020-05-31] MEDS: DOCUSATE 100 MG CAPSULE PO (10:13)
--- NOTE | 2020-05-31 10:39 | CM.DANOTE ---
Patient is a 79 year old male who was admitted on 05/30/20 for Rectal Bleeding. Pt has [facility] and for insurance and his PCP is Dr. Stoney Solorzano. EMR was reviewed. Per MD, pt with hx of CABG, CVA, diverticulitis and now admitted for G.I. Bleed. Per Surgeon, recommending colonoscopy but pt wanting to wait overnight to determine if he can avoid colonoscopy. SW met bedside with pt and explained role and pt confirms that he lives at home by [address] and lives alone and is very independent and active at baseline and drives. Pt states his ex- lives on [place] and is available for assist if needed and Dtr/YENNIFER Mazariegos lives in [place] and works as a special education curriculum specialist but is available if needed as well. Pt states he has a jewel hole finish opener once a month but denies any other supportive services and denies the need for additional assist. Pt states he has very supportive neighbors that have helped provide transport from [facility] 4 years ago when he had his last G.I. Bleed and was able to d/c home with no needs. Pt states he has decided to proceed with bowel prep this evening for colonoscopy tomorrow morning since he has continued to show signs of bleeding. Pt anticipates being able to d/c home via own vehicle in parking lot later in the day tomorrow after colonoscopy and declines any further services at this time. Plan: SW to follow after pt colonoscopy in the AM towards confirming plan of d/c home with no needs pending results. ANAY Dueñas Discharge Planning/Care Management CM Discharge Assessment Start: 05/31/20 09:44 Freq: Status: Active Protocol: Document 05/31/20 09:44 BF (Rec: 05/31/20 10:39 [id number]) Discharge Planning Assessment Assigned Tree Surgeon Helper ANAY Gallagher/Assigned Designee Name Ketan Mazariegos in [place] Contact Information [phone] Advance Directives? Yes Advance Directives on File No History Provided By Patient,Medical Record Has Patient been admitted in last 30 No days? Prior Living Arrangements House Household Members none Type of transporation used prior to Drives own vehicle admit Independent with ADL's Yes Is patient alert and oriented? Yes Needs Assistance With Home Chores / Shopping Caregiver for Another No Comment Likely home pending colonoscopy results Barriers to Discharge No Discharge Plan Home Transportation Arrangement Pt will either drive his own vehicle in the parking lot or call his friend/neighbor for a ride Referrals Initiated None needed Additional Comment Pending colonoscopy tomorrow Review Status In Process Please Provide Date Initial DC 05/31/20 Assessment Was Performed Next Review Type Continued Stay Review
[2020-05-31] MEDS: SODIUM CHLORIDE 1,000 MG TABLET 1000 MG PO (12:08)
--- NOTE | 2020-05-31 13:51 | PM.PN.1 ---
Subjective Subjective Date Patient Seen: 05/31/20 Time Patient Seen: 16:44 Interval history: No acute events overnight. Pt has not passed any further blood or stool per rectum. Exam Vital Signs (past 8 hours): - 05/31/20 08:00 05/31/20 10:12 05/31/20 10:22 Temperature 98.6 F 98.3 F Pulse Rate 84 90 90 Respiratory Rate 15 16 Blood Pressure 120/66 137/83 137/83 Pulse Oximetry 95 98 05/31/20 10:35 05/31/20 10:50 Temperature 98.3 F 98.2 F Pulse Rate 93 H 88 Respiratory Rate 16 16 Blood Pressure 131/93 H 117/67 Pulse Oximetry Oxygen Delivery Method Room Air Oxygen Flow Rate 0 Narrative Exam Narrative: GENERAL: Alert, comfortable, appears stated age. Answers questions promptly and appropriately. Vital signs noted. HENT: Normocephalic, atraumatic. Hard of hearing. Scars present on right neck from neck dissection surgery for melanoma. Oral mucosa is pink and moist. EYES: Conjunctiva pink, sclera white, no periorbital swelling. CARDIOVASCULAR: Regular rate. No pedal edema. RESPIRATORY: Non-tachypneic, breathing comfortably on room air. GASTROINTESTINAL: Abdomen soft and non-distended; non tender; vertical midline well healed incisional scar GENITALURINARY: No flank tenderness. MUSCULOSKELETAL: Equal tone and mass bilaterally. SKIN: Warm, dry, soft, appropriate color for ethnicity. No other lesions, rashes, or wounds. NEURO: Alert and Oriented X 3. No gross sensory deficits, or cognitive issues. PSYCH: Appropriate mood and affect, normal intellect Objective Labs Result Diagrams: 05/31/20 14:34 05/31/20 05:26 Labs: Laboratory Results - last 24 hr 05/30/20 05/30/20 05/30/20 12:30 15:40 16:55 WBC 5.1 RBC 2.57 L Hgb 8.8 L Hct 25.0 L MCV 97.5 MCH 34.1 H MCHC 35.0 RDW 13.2 Plt Count 189 Neut % (Auto) 70.9 Lymph % (Auto) 16.6 L [place] % (Auto) 11.2 Eos % (Auto) 0.8 L Baso % (Auto) 0.5 Neut # (Auto) 3600 Lymph # (Auto) 800 L [place] # (Auto) 600 Eos # (Auto) 0 Baso # (Auto) 0 Sodium Potassium Chloride Carbon Dioxide BUN Creatinine Estimated GFR BUN/Creatinine Ratio Glucose Calcium COVID-19 PCR Negative Blood Type A Positive Antibody Screen Negative Crossmatch See Detail 05/31/20 05/31/20 05:26 05:26 WBC 3.6 L RBC 2.31 L Hgb 7.8 L Hct 22.7 L MCV 98.5 MCH 33.7 MCHC 34.2 RDW 13.2 Plt Count 176 Neut % (Auto) 69.0 Lymph % (Auto) 15.9 L [place] % (Auto) 12.2 Eos % (Auto) 2.2 Baso % (Auto) 0.7 Neut # (Auto) 2500 Lymph # (Auto) 600 L [place] # (Auto) 400 Eos # (Auto) 100 Baso # (Auto) 0 Sodium 129 L Potassium 3.7 Chloride 98 Carbon Dioxide 25 BUN 15 Creatinine 1.03 Estimated GFR > 60.0 BUN/Creatinine Ratio 14.6 Glucose 100 Calcium 8.0 L COVID-19 PCR Blood Type Antibody Screen Crossmatch Assessment & Plan Assessment and plan (1) Lower gastrointestinal hemorrhage: Status: Acute (2) Diverticulosis of large intestine with hemorrhage: Status: Resolved (3) Essential hypertension: Status: Chronic (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 No further rectal blood or stool passed since admission. The patient has decided he would like to proceed with colonoscopy. He has started the bowel prep. I have ordered a 2nd round of bowel prep, if he is not running clear by 10:00 p.m.. maribell. He should be NPO at 8:00 a.m. tomorrow, for anticipated colonoscopy in the afternoon. Recommendations: Follow serial hgb clear liquid diet, NPO at 8:00 a.m. Bowel prep now Second round of bowel prep to be completed this p.m. Transfusion and home meds per primary doctor COVID-19 COVID-19 status: Negative Result date/Date tested (Pos, Neg/Pending): 05/30/20 Time Spent With Patient Time with patient: 25 - 35 minutes Quality VTE Deep Vein Thrombosis/Pulmonary Embolism Present on Admission: No
[2020-05-31 14:44] LABS: Hematocrit 25.8 % (41-53); Hemoglobin 8.9 g/dL (13.5-17.5)
[2020-05-31] MEDS: PEG3350/SOD SULF,BICARB,CL/KCL 4,000 ML SOLUTION 4000 ML PO ×2 (14:44→21:11)
[2020-05-31 14:55] LABS: Cholesterol 108 mg/dL (140-199); HDL Cholesterol 48 mg/dL (40-60); LDL Cholesterol Calculated 41 mg/dL (<100); Triglycerides 94 mg/dL (35-150)
[2020-05-31 15:36] LABS: TSH w/ Reflex to FT4 3.74 uIU/mL (0.47-4.68)
[2020-05-31] MEDS: GLYCERIN SUPP ADULT 1 SUPP 1 EACH PR (15:56)
[2020-05-31] MEDS: MINERAL OIL/PETROL OPHTH OINT 3.5 GM 1 APPLIC EYE-BOTH (16:25)
[2020-06-01] VITALS (14 sets, daily range): BP systolic 128–162; BP diastolic 69–97; PULSE 78–106; RESP 8–20; TEMP 36.1–37.2; O2SAT 88–100; BMI 26.7
--- NOTE | 2020-06-01 | PATH_ITS ---
[facility] Accession Number: [id number] . 01 Material submitted: . rectum - RECTAL POLYP 2CM ABOVE ANAL VERGE . 01 Clinical history: . RECTAL BLEEDING SINCE LAST FRIDAY . 02 Diagnosis: Rectum, Polyp 2 cm Above Anal Verge, Biopsy: Tubulovillous adenoma. No evidence of malignacy or high-grade dysplasia. [facility] 06/05/2020 0941 Local . 02 Electronically signed: . Chelsey Fontaine MD, Pathologist NPI- [id number] . 01 Gross description: . The specimen is received in formalin, labeled rectal polyp 2 cm above anal verge and consists of a 1.7 x 1.5 x 0.9 cm pink-red polyp. The base is inked blue. The specimen is bisected and entirely submitted in cassette A1. ([id number]) /[facility] 06/02/2020 1523 Local . 02 Pathologist provided ICD-10: D12.8 . 02 CPT . 668027 Performed at: 01 [facility] [address] [id number] MD Martín Valenzuela MD Phone: [phone] Performed at: 02 [facility] [address] [place], [place] [id number] MD Chelsey Fontaine MD Phone: [phone]
[2020-06-01] MEDS: ZOLPIDEM 5 MG TABLET 10 MG PO ×2 (03:34→23:39)
[2020-06-01] MEDS: MIRTAZAPINE 15 MG TABLET 30 MG PO ×2 (03:34→23:39)
[2020-06-01] MEDS: SODIUM CHLORIDE 0.9% 1,000 ML 50 ML IV (06:12)
[2020-06-01 06:34] LABS: Add Manual Diff / Slide Review NO; Basophils Absolute Auto 0 /uL (0-100); Basophils Percent Auto 0.5 % (0-2); Eosinophils Absolute Auto 100 /uL (0-450); Eosinophils Percent Auto 1.4 % (2-4); Hematocrit 28.5 % (41-53); Hemoglobin 9.9 g/dL (13.5-17.5); Lymphocytes Absolute Auto 600 /uL (1100-4500); Lymphocytes Percent Auto 10.8 % (25-40); Mean Corpuscular HGB Conc 34.7 % (30-36); Mean Corpuscular Volume 95.2 fL (80-100); Monocytes Absolute Auto 700 /uL (0-900); Monocytes Percent Auto 13.1 % (3-14); Neutrophils Absolute Auto 4000 /uL (1500-7000); Neutrophils Percent Auto 74.2 % (50-75); Platelet Count 209 X10^3/uL (150-400); Red Cell Distribution Width 14.7 % (11.6-14.8); White Blood Cell Count 5.4 X10^3/uL (4.5-11.0)
[2020-06-01 06:45] LABS: BUN Creatinine Ratio 12.2 (6-22); Blood Urea Nitrogen 12 mg/dL (9-20); Calcium 8.3 mg/dL (8.4-10.2); Carbon Dioxide 27 mmol/L (22-32); Chloride 102 mmol/L (98-107); Estimated Glomerular Filt Rate > 60.0 mL/min (>60); Glucose 98 mg/dL (80-110); HEMOLYSIS < 15 (0-50); Potassium 4.6 mmol/L (3.4-5.1); Sodium 134 mmol/L (137-145)
--- NOTE | 2020-06-01 08:50 | PC.NURSE ---
Patient resting comfortably in bed at this time. Awakens easily and conversant, states it was a very hard night doing the colonoscopy prep. Declines his morning medications, states he will take them with his meal after his procedure later. States he is hungry now. NPO, mouth swabs and mouth wash provided. Denies shortness of breath, dizziness, chest pain or other complaint. Stool in BSC emptied, it is clear blood tinged. Denies nausea or abdominal pain. Plans to rest until his procedure, call light within reach.
--- NOTE | 2020-06-01 09:57 | PM.PN.1 ---
Subjective Subjective Date Patient Seen: 06/01/20 Time Patient Seen: 09:58 Interval history: The pt reports the he slept very little last night due to the colonoscopy prep. He has been passing blood with his stools, which are now clear. He denies any abdominal pain, SOB, chest pain. Of note, nursing spoke with his daughter last night. She told them that the pt has been a heavy drinker for a long period of time, but would never admit it. Exam Vital Signs (past 8 hours): - 06/01/20 03:53 06/01/20 07:00 Temperature 97.9 F 98.3 F Pulse Rate 99 H 90 Respiratory Rate 18 15 Blood Pressure 150/85 H 148/90 H Pulse Oximetry 99 98 Oxygen Delivery Method Room Air Oxygen Flow Rate 0 Narrative Exam Narrative: GEN - alert, cooperative and no distress HEENT - normocephalic and atraumatic, sclera white, conjunctiva pale HEART - RRR, S1, S2 normal, no S3 or S4, no murmurs LUNGS - symmetric chest rise, no accessory muscles, clear to auscultation bilaterally ABD - nondistended, normal bowel sounds, soft, nontender and no hepatomegaly, splenomegaly or masses EXT - no edema NEURO - no gross deficits Objective Labs Result Diagrams: 06/01/20 06:04 06/01/20 06:04 Labs: Laboratory Results - last 24 hr 05/30/20 05/31/20 05/31/20 12:30 14:34 14:34 WBC RBC Hgb 8.9 L Hct 25.8 L MCV MCH MCHC RDW Plt Count Neut % (Auto) Lymph % (Auto) [place] % (Auto) Eos % (Auto) Baso % (Auto) Neut # (Auto) Lymph # (Auto) [place] # (Auto) Eos # (Auto) Baso # (Auto) Sodium Potassium Chloride Carbon Dioxide BUN Creatinine Estimated GFR BUN/Creatinine Ratio Glucose Calcium Triglycerides 94 Cholesterol 108 L LDL Cholesterol, Calc 41 HDL Cholesterol 48 TSH Blood Type A Positive Antibody Screen Negative Crossmatch See Detail 05/31/20 06/01/20 06/01/20 14:34 06:04 06:04 WBC 5.4 RBC 3.00 L Hgb 9.9 L Hct 28.5 L MCV 95.2 D MCH 33.0 MCHC 34.7 RDW 14.7 Plt Count 209 Neut % (Auto) 74.2 Lymph % (Auto) 10.8 L [place] % (Auto) 13.1 Eos % (Auto) 1.4 L Baso % (Auto) 0.5 Neut # (Auto) 4000 Lymph # (Auto) 600 L [place] # (Auto) 700 Eos # (Auto) 100 Baso # (Auto) 0 Sodium 134 L Potassium 4.6 Chloride 102 Carbon Dioxide 27 BUN 12 Creatinine 0.98 Estimated GFR > 60.0 BUN/Creatinine Ratio 12.2 Glucose 98 Calcium 8.3 L Triglycerides Cholesterol LDL Cholesterol, Calc HDL Cholesterol TSH 3.74 Blood Type Antibody Screen Crossmatch Assessment & Plan Assessment & Plan narrative: Pt is a 79yo man with HTN, hyperlipidemia, hyponatremia, hx of diverticulitis and diverticular bleed, hx of CVA on baby aspirin alone, and hx of CABG who presents with GI bleeding, presumed lower GI based on character and hx of extensive diverticulitis. 1) GI bleed: Hemodynamically stable, but with significant drop in H/H at admission. Acute anemia due to acute blood loss from GI bleed. S/P 2 units PRBCs with appropriate rise in Hgb. - Surgery consulted, appreciate care - Colonoscopy today - Continue to monitor H/H closely 2) CM: Resolved. Most likely due to volume depletion. S/P 1L NS in the ED. - Continue mIVF until back on more normal diet 3) Hyponatremia: Stable - Continue NaCl tablet 4) HTN, Hyperlipidemia: - Continue home HCTZ, Lisinopril, Rosuvastatin - Hold home Aspirin FEN: Clear liquid diet DVT prophylaxis: SCDs Dispo: Pending colonoscopy, advancing of diet. Hopeful for d/c tomorrow morning. Quality VTE Deep Vein Thrombosis/Pulmonary Embolism Present on Admission: No
--- NOTE | 2020-06-01 13:55 | PC.NURSE ---
Patient picked up for procedure. Plans to sign consent with MD at bedside in pre op area, states I have an appointment with her down there. Belongings at bedside.
--- NOTE | 2020-06-01 14:05 | PM.PREOP ---
Pre-operative Note COVID-19 COVID-19 status: Negative Result date/Date tested (Pos, Neg/Pending): 05/30/20 Interval Note History & Physical reviewed/Exam performed by Physician: Yes Changes to H&P: No
[2020-06-01] MEDS: LACTATED RINGERS 1,000 ML 42 ML IV (14:07)
--- NOTE | 2020-06-01 15:27 | CM.DPC ---
DCP: continued: case received, EMR reviewed and expected plan for a d/c to home setting when stable for same is noted. Pt has been taken this afternoon for the colonoscopy. Will plan to check in on him tomorrow and follow prn for any d/c needs that may arise. Per AUTUMN Gallagher's prior note pt did drive himself here and is hoping to be able to drive self home.
--- NOTE | 2020-06-01 15:38 | P.OP_ITS ---
Operative Date/Time/Diagnoses Date of procedure: 06/01/20 Time of procedure: 15:38 Pre-op diagnosis: Lower GI bleed Post-op diagnosis: other (descending and sigmoid diverticulosis, large rectal polyp, no source of bleed identified) Procedure & Clinicians Procedure: Colonoscopy, polypectomy with hot snare Same procedure as scheduled: Yes Indications: Lower GI bleed Surgeon: Justyna Rose Click Yes if Unassisted: Yes Anesthesia Type: General Operative Notes Findings: Diverticulosis in the descending and sigmoid colon, 2cm rectal polyp; no blood in right colon or coming from ileum; likely bleeding source is a descending or sigmoid diverticulum. Less likely, the rectal polyp. Specimen(s): other (rectal polyp) Estimated Blood Loss (mL): 0 Procedure in detail: The patient was brought to the room, and positioned supine in his hospital bed. General anesthesia was induced and the patient was intub ated with an LMA by Dr. Grimes. He was then placed in left lateral decubitus position with all bony prominences padded. A time-out was performed, and then the procedure was begun. A rectal exam was performed revealing no abnormalities. The colonoscope was then introduced to the rectum and advanced to the cecum in the usual fashion. Blood was seen throughout the rectum, sigmoid, and descending colon. A small amount of blood was seen in the transverse. There was no blood in the proximal transverse or ascending colon. The prep was adequate. There was minimal stool present, but there was adherent blood on the patel of the colon which was washed clean during the procedure. The cecum was identified by the appendiceal orifice, the mucosal tri-fold, and the ileocecal valve. The scope was then retracted while rotating side to side and examining each mucosal fold. Many diverticula of varying sizes were seen througout the descending and sigmoid colon. These were interrogated with irr igation flush, and examined for active bleeding. No active bleeding was seen. A large 2cm polyp was found in the rectum 2cm from the anal verge. It was covered with blood, but was not clearly bleeding, and was not considered a likely source of the patient's GI bleed. It was completely removed at its base with hot snare and sent for pathology. At the conclusion of the procedure retroflexion was performed and small grade 1-2 internal hemorrhoids without stigmata of bleeding were seen. The cauterized polypectomy site was examined and was hemostatic. The scope was then withdrawn from the rectum the procedure was concluded. The patient tolerated the procedure well and was transferred to the PACU in stable condition. Complications: none Post-operative Condition: stable Disposition: PACU Plan for aftercare: Timing of follow up colonoscopy will depend on polyp pathology. If bleeding recurs, the patient should be transferred for bleeding scan and/or attempted IR embolization of bleeding vessel. He should follow up in the office to discuss pathology results and surgical options for preventing a future bleed.
[2020-06-02 04:20] VITALS: BP 134/82; PULSE 89; RESP 16; TEMP 37.2; O2SAT 95
[2020-06-02 06:29] LABS: Add Manual Diff / Slide Review NO; Basophils Absolute Auto 0 /uL (0-100); Basophils Percent Auto 0.7 % (0-2); Eosinophils Absolute Auto 100 /uL (0-450); Eosinophils Percent Auto 2.5 % (2-4); Hematocrit 27.1 % (41-53); Hemoglobin 9.3 g/dL (13.5-17.5); Lymphocytes Absolute Auto 600 /uL (1100-4500); Mean Corpuscular HGB Conc 34.4 % (30-36); Mean Corpuscular Hemoglobin 32.9 PG (26-34); Mean Corpuscular Volume 95.7 fL (80-100); Monocytes Absolute Auto 600 /uL (0-900); Monocytes Percent Auto 12.5 % (3-14); Neutrophils Absolute Auto 3600 /uL (1500-7000); Neutrophils Percent Auto 71.3 % (50-75); Platelet Count 218 X10^3/uL (150-400); Red Blood Cell Count 2.83 X10^6/uL (4.5-5.9); Red Cell Distribution Width 14.8 % (11.6-14.8)
[2020-06-02 06:36] LABS: BUN Creatinine Ratio 7.8 (6-22); Blood Urea Nitrogen 8 mg/dL (9-20); Calcium 8.1 mg/dL (8.4-10.2); Carbon Dioxide 26 mmol/L (22-32); Chloride 101 mmol/L (98-107); Estimated Glomerular Filt Rate > 60.0 mL/min (>60); Glucose 99 mg/dL (80-110); HEMOLYSIS < 15 (0-50); Potassium 3.9 mmol/L (3.4-5.1); Sodium 131 mmol/L (137-145)
--- NOTE | 2020-06-02 08:32 | PM.DS.1 ---
History of Present Illness History of Present Illness Chief complaint: RECTAL BLEEDING SINCE LAST FRIDAY Narrative: Pt is a 79yo man with HTN, hyperlipidemia, hyponatremia, hx of diverticulitis and diverticular bleed, hx of CVA on baby aspirin alone, and hx of CABG who presents with rectal bleeding. The pt reports that he usually has 2 BMs/day, stimulated by a glycerin suppository. He states that the morning of 05/26, with his first BM, he had a significant clot that passed, around the size of a baseball. He additionally had some bright red blood. He then continued to have bleeding with his next BM in the day. 05/27, 05/28, and 05/29 he continued to have bleeding, although progressively less. This morning, with his first BM there was not blood, however with his second BM there was again blood. All of the blood passed has been bright red to darker red in color. he denies any melena. He denies any significant abdominal pain. He denies any bleeding between his BMs. He does report feeling a fatigued today, but denies any overt lightheadedness. He denies any SOB, chest pain, palpitations. He reports that it is not uncommon for him to have a small amount of blood in his stool on occasion, but it is not usually this severe, and usually is just for one BM, not multiple consecutively. The pt was hospitalized with a presumed diverticular bleed in 2016 with a precipitous drop in his H/H. He was transfused 2 units of PRBCs at the time, and underwent upper and lower endoscopy, which revealed extensive diverticulitis, but no active bleeding. Discharge Providers Provider Date of admission: 05/30/20 15:22 Discharge Date: 06/02/20 Primary care physician: Stoney Solorzano MD Consults: 05/30/20 16:18 Consult to General Surgery Routine Comment: Consulting Provider: Justyna Rose Reason for consultation: GI bleed Has provider been notified: Yes Discharge provider: No Ochoa MD Summary Hospital Course Discharge Diagnosis: Lower GI bleed Acute anemia due to GI bleed Diverticulosis Rectal polyp Hypertension CM Hyponatremia Hospital Course: The pt presented with symptoms consistent with lower GI bleed. His H/H dropped significantly, and he was transfused 2 units of PRBCs with good response. Her underwent colonoscopy, which revealed significant diverticulosis but no distinct source of bleeding was identified. The pt did have a 2cm rectal polyp that was removed, pathology pending. He will f/u with surgery to discuss these results. The pts H/H remained stable throughout the remainder of his hospitalization. At admission, he had CM that resolved after IVF overnight. He was initially NPO prior to colonoscopy, but his diet was advanced afterwards without any issues. He had no further signs of bleeding after the colonoscopy. The pt will be discharged home, with plans for iron supplement to help his blood count further. F/U with surgery and Dr Solorzano within the next 2 weeks. Status at Discharge Cognitive/behavioral status at discharge: oriented Functional status at discharge: independent ambulation Overall status at discharge: patient is back to baseline Time Spent with Patient Time spent: Greater than 30 minutes Exam Vital Signs (past 8 hours): - 06/02/20 04:20 Temperature 98.9 F Pulse Rate 89 Respiratory Rate 16 Blood Pressure 134/82 Pulse Oximetry 95 Oxygen Delivery Method Room Air Oxygen Flow Rate 0 Narrative Exam Narrative: GEN - alert, cooperative and no distress HEENT - normocephalic and atraumatic, sclera white HEART - RRR, S1, S2 normal, no S3 or S4, no murmurs LUNGS - symmetric chest rise, no accessory muscles, clear to auscultation bilaterally ABD - nondistended, normal bowel sounds, soft, nontender EXT - no edema NEURO - no gross deficits Objective Labs Result Diagrams: 06/02/20 06:00 06/02/20 06:00 Labs: Laboratory Results - last 24 hr 06/02/20 06/02/20 06:00 06:00 WBC 5.0 RBC 2.83 L Hgb 9.3 L Hct 27.1 L MCV 95.7 MCH 32.9 MCHC 34.4 RDW 14.8 Plt Count 218 Neut % (Auto) 71.3 Lymph % (Auto) 13.0 L [place] % (Auto) 12.5 Eos % (Auto) 2.5 Baso % (Auto) 0.7 Neut # (Auto) 3600 Lymph # (Auto) 600 L [place] # (Auto) 600 Eos # (Auto) 100 Baso # (Auto) 0 Sodium 131 L Potassium 3.9 Chloride 101 Carbon Dioxide 26 BUN 8 L Creatinine 1.02 Estimated GFR > 60.0 BUN/Creatinine Ratio 7.8 Glucose 99 Calcium 8.1 L Discharge Plan Discharge Plan Patient Disposition: Home Discharge orders & Medications Prescriptions: New ferrous sulfate 325 mg (65 mg iron) tablet 325 mg PO DAILY Qty: 30 RF: 0 Continued Restasis 1 EACH dropperette 1 drp OPHTH BID Qty: 0 RF: 0 betamethasone, augmented 0.05 % cream 1 lesley Topical BID Qty: 1 RF: 3 aspirin 81 MG tablet,delayed release (DR/EC) 81 mg PO QDAY Qty: 90 RF: 3 sodium chloride 1 GM tablet 1 gm PO DAILY Qty: 0 RF: 0 rosuvastatin 10 mg tablet 10 mg .ROUTE DAILY Qty: 90 RF: 3 mirtazapine 30 mg tablet 30 mg PO HS Qty: 90 RF: 1 lisinopril 10 mg tablet 10 mg PO DAILY Qty: 90 RF: 1 zolpidem 10 mg tablet 10 mg PO BEDTIME Qty: 30 RF: 3 hydrochlorothiazide 25 mg tablet See Rx Instructions PO DAILY Qty: 135 RF: 3 melatonin 5 mg Tablet 5 mg PO BEDTIME PRN (Reason: Insomnia) RF: 0 Follow up/Referrals: Stoney Solorzano MD [Primary Care Provider] - 2 Weeks Justyna Rose MD [Physician] - (Please make a follow up appointment to review the pathology from your colonoscopy and to discuss further recommendations for your diverticulosis and bleeding.) Diet/Activity/Treatments Diet: Diet as Tolerated and Regular Visit Report/Discharge Packet Instructions: DI for Diverticulitis, Gastrointestinal Bleeding Visit Report Forms: Patient Portal/API, Stroke Signs & Symptoms Discharge Data Primary Care Provider: Stoney Solorzano Quality VTE Deep Vein Thrombosis/Pulmonary Embolism Present on Admission: No
[2020-06-02 08:33] VITALS: BP 162/92; PULSE 93
[2020-06-02] MEDS: hydroCHLOROthiazide 25 MG TABLET PO (08:33)
[2020-06-02] MEDS: DOCUSATE 100 MG CAPSULE PO (08:33)
[2020-06-02] MEDS: lisinopriL 10 MG TABLET PO (08:33)
[2020-06-02] MEDS: SODIUM CHLORIDE 1,000 MG TABLET 1000 MG PO (08:33)
[2020-06-02] MEDS: ROSUVASTATIN 10 MG TABLET PO (08:33)
[2020-06-02] MEDS: SODIUM CHLORIDE 0.9% FLUSH 10 ML IV (08:35)
[2020-06-02 08:39] VITALS: BP 162/92; PULSE 93; RESP 19; TEMP 37; O2SAT 98
--- NOTE | 2020-06-02 09:43 | PC.NURSE ---
Addendum entered by Layla Sigala R.N. 06/02/20 10:19: Patient updated daughter Lenard (POA) regarding discharge status. Case management at bedside. Patient discharging home, via to [facility] in stable condition. Original Note: Day shift discharge note: Discharge instructions given to patient as ordered by Dr. Ochoa. Discussed importance of F/U with Dr. Solorzano in two weeks and with Dr. Rose in one week, also new Ferrous Sulfate PO medication Rx. Verbalized understanding of instructions. VSS. No GI bleeding noted this am. Voiding. Tolerated general diet.
--- NOTE | 2020-06-02 11:21 | CM.DPC ---
DCP: continued: met briefly with pt as RN Layla was going over the d/c instructions. He will drive himself home. Layla confirms no medications in his system that would make this unsafe. Pt says he feels well, will be calling his doctors to set up the followup appointments this Friday. He has talked to his POA daughter several times during the stay. He states, I have a great lifestyle, it suits me, and I wish to get back to it. Home with followup visits as noted.
== END 2020-06-02 10:40 | disposition home or self-care (01) | DRG 378 ==
LOC: ED 12:25 → AC 15:23
PROVIDERS: Surgery; Admitting Provider Family Medicine; Emergency Provider Emergency Medicine; Family Provider Family Medicine; PCP Family Medicine; Referring Provider Emergency Medicine; Visit Provider Family Medicine
PROC: 0DJD8ZZ Inspection of Lower Intestinal Tract, Via Natural or Artificial Opening Endoscopic (ICD-10-PCS; CPT 45378; principal; 2020-06-01 14:00)
DX: K57.31 Diverticulosis of large intestine without perforation or abscess with bleeding (principal); N17.9 Acute kidney failure, unspecified; E87.1 Hypo-osmolality and hyponatremia; D62 Acute posthemorrhagic anemia; I10 Essential (primary) hypertension; E78.5 Hyperlipidemia, unspecified; Z86.73 Personal history of transient ischemic attack (TIA), and cerebral infarction without residual deficits; Z95.1 Presence of aortocoronary bypass graft; Z11.59 Encounter for screening for other viral diseases; Z85.528 Personal history of other malignant neoplasm of kidney
CPT/HCPCS: 36415; 36430; 45385; 80048; 80053; 80061; 84443; 84484; 85014; 85018; 85025; 86850; 86900; 86901; 87635; 96360; 96361; 99222; 99232; 99238; 99284; P9016; J2704; J3010

== ENCOUNTER 2020-06-05 11:31 | Emergency (ER) | payer MEDICARE, OTHER, SELFPAY ==
[2020-05-30 17:12] VITALS: BMI 26.4
[2020-06-05 11:42] VITALS: BP 170/87; PULSE 96; RESP 14; TEMP 36.5; O2SAT 96; BMI 26.7
[2020-06-05 12:39] LABS: Add Manual Diff / Slide Review NO; Basophils Absolute Auto 0 /uL (0-100); Basophils Percent Auto 0.5 % (0-2); Eosinophils Absolute Auto 100 /uL (0-450); Eosinophils Percent Auto 1.8 % (2-4); Hematocrit 28.8 % (41-53); Hemoglobin 9.8 g/dL (13.5-17.5); Lymphocytes Absolute Auto 500 /uL (1100-4500); Lymphocytes Percent Auto 14.2 % (25-40); Mean Corpuscular HGB Conc 34.2 % (30-36); Mean Corpuscular Hemoglobin 32.5 PG (26-34); Mean Corpuscular Volume 95.2 fL (80-100); Monocytes Absolute Auto 400 /uL (0-900); Monocytes Percent Auto 10.9 % (3-14); Neutrophils Absolute Auto 2800 /uL (1500-7000); Neutrophils Percent Auto 72.6 % (50-75); Platelet Count 325 X10^3/uL (150-400); Red Blood Cell Count 3.03 X10^6/uL (4.5-5.9); White Blood Cell Count 3.8 X10^3/uL (4.5-11.0)
[2020-06-05 12:46] LABS: Prothrombin Time 11.9 SECONDS (10.1-12.7)
[2020-06-05 12:49] LABS: PTT Partial Thromboplastin Tim 21 SECONDS (26.4-36.2)
[2020-06-05 12:53] LABS: Alanine Aminotransferase 25 IU/L (<50); Albumin 4.1 g/dL (3.5-5.0); Albumin Globulin Ratio 1.5 (1.0-2.8); Alkaline Phosphatase 58 U/L (38-126); Aspartate Aminotransferase 42 IU/L (17-59); BUN Creatinine Ratio 8.3 (6-22); Bilirubin Total 0.4 mg/dL (0.2-1.3); Blood Urea Nitrogen 9 mg/dL (9-20); Calcium 8.8 mg/dL (8.4-10.2); Carbon Dioxide 25 mmol/L (22-32); Chloride 94 mmol/L (98-107); Estimated Glomerular Filt Rate > 60.0 mL/min (>60); Globulin 2.8 g/dL (1.7-4.1); Glucose 86 mg/dL (80-110); HEMOLYSIS < 15 (0-50); Potassium 4.9 mmol/L (3.4-5.1); Sodium 130 mmol/L (137-145); Total Protein 6.9 g/dL (6.3-8.2)
--- NOTE | 2020-06-05 13:08 | PC.NURSE ---
Patient has history of GI bleeds and was in the ER last week and received 2 units of blood for it. Today he reports blood streaked stool but not nearly as bad as last time. He states that he was told that he needed to come to the ED by Dr chang's office after calling them and telling them he had blood in stool
--- NOTE | 2020-06-05 13:52 | ED_ITS ---
HPI - GI Bleed General Chief complaint: GI Bleed Stated complaint: GI Bleeding Time Seen by Provider: 06/05/20 12:31 Source: patient Mode of arrival: Ambulatory Limitations: no limitations History of Present Illness HPI Narrative: The patient presents with lower GI bleeding. He had blood on the outside of formed stool with a BM prior to arrival here. He has no associated weakness or dizziness. He is not passing blood continually since he had the bloody BM. He was admitted last week, after symptoms for 5 days. He required transfusion of 2 units of PRBCs. Colonoscopy was done, revealing diverticulosis, and a polyp. He underwent polypectomy. He has no past history of chronic GI problems, other than the history of diverticulosis was previously known. He has had no fever chills with current symptoms. He has no urinary complaints. He has no chest pain or dyspnea. He denies recent illness. He apparently contacted the surgery team who recently cared for him here at [facility] prior to coming here. He arrives convinced he needs to go straight to Invasive Radiology to stop the bleeding. Related Data Home Medications Medication Instructions Recorded Confirmed Restasis 1 drp OPHTH BID #0 07/12/16 05/30/20 sodium chloride 1 gm PO DAILY #0 01/13/18 05/30/20 melatonin 5 mg PO BEDTIME PRN 02/10/19 05/30/20 Previous Rx's Medication Instructions Recorded betamethasone, augmented 1 lesley TOPICAL BID #1 tube 07/12/16 aspirin 81 mg PO QDAY #90 tab 10/07/17 rosuvastatin 10 mg tablet 10 mg .ROUTE DAILY #90 tab 08/17/19 mirtazapine 30 mg tablet 30 mg PO HS #90 tab 02/10/20 lisinopril 10 mg tablet 10 mg PO DAILY #90 tab 02/15/20 zolpidem 10 mg tablet 10 mg PO BEDTIME #30 tab 03/22/20 hydrochlorothiazide 25 mg tablet See Rx Instructions PO DAILY #135 03/23/20 tab ferrous sulfate 325 mg PO DAILY #30 tab 06/02/20 Allergies Allergy/AdvReac Type Severity Reaction Status Date / Time No Known Drug Allergies Allergy Verified 05/30/20 12:29 Review of Systems Review of Systems ROS Unobtainable: All systems reviewed & are unremarkable except as noted in HPI and below Constitutional Constitutional: Denies chills, Denies fever(s), Denies lethargy and Denies weakness ENT Ears, Nose, Mouth, and Throat: Denies vertigo and Denies dizziness Comments: No ENT complaints Cardiovascular Cardiovascular: Denies chest pain, Denies syncope, Denies rapid heart rate, Denies pedal edema and Denies dyspnea Respiratory Respiratory: Denies cough, Denies dyspnea and Denies wheezing Gastrointestinal Gastrointestinal: Denies abdominal pain, Denies change in bowel habits, Denies diarrhea, Denies nausea and Denies vomiting Comments: GI bleeding is noted HPI. 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) Diverticulosis of large intestine without hemorrhage (Chronic 01/13/18) Essential hypertension (Chronic 02/27/11) GI bleed (Acute) Hearing loss (Chronic) Hyperlipidemia (Chronic 02/27/11) Hypertension (Chronic) Hyponatremia (Inactive) Kidney disease (Chronic ~12/2014) Measles (Resolved) Melanoma (Chronic ~09/2014) Melanoma (Inactive) Mumps (Resolved) Neoplasm of kidney (Resolved 12/01/14) Peripheral vascular disease (Chronic ~12/2014) Rosacea (Chronic) Scoliosis (Chronic ~09/2014) Skin cancer of anterior chest (Inactive) Skin cancer of forehead (Inactive) Status post nephrectomy (Inactive 02/02/15) TIA (transient ischemic attack) (Chronic) Tinnitus (Chronic) Surgical History Anesthesia (Resolved) History of kidney removal (Inactive) History of nephrectomy (11/25/14) Surgical procedure planned (Resolved ~09/2014) Social History marital status: household members: none Smoking Status: Never smoker alcohol intake: current substance use type: does not use Smoking Status: Never smoker alcohol intake frequency: 0-2 drinks per day Substance Use Type: does not use Exam Initial Vital Signs Initial Vital Signs: Vital Signs Temperature 97.7 F 06/05/20 11:42 Pulse Rate 96 H 06/05/20 11:42 Respiratory Rate 14 06/05/20 11:42 Blood Pressure 170/87 H 06/05/20 11:42 Pulse Oximetry 96 06/05/20 11:42 Const General: cooperative and well developed Nutritional Appearance: well nourished [facility] Head: normocephalic and atraumatic Eyes Conjunctivae: conjunctivae normal Sclera: sclerae normal Neck Neck: No JVD Resp Effort & Inspection: normal respiratory effort and able to speak in complete sentences Auscultation: clear to auscultation bilaterally, no rales, no rhonchi and no wheezes Cardio Rate: regular rate Rhythm: regular rhythm Heart Sounds: S1 normal, S2 normal, no click, no gallops, no murmurs and no rubs Pulses: normal peripheral pulses GI Inspection: non-distended Palpation: soft, no hepatosplenomegaly, No guarding, No pulsatile mass and No tender Auscultation: normal bowel sounds Back/Spine/Pelvis Back: No CVA tenderness Skin General: no rashes or lesions noted, No jaundice and No petechiae Neuro General: patient alert, patient oriented x3, gait normal and no focal motor deficits Speech: speech normal Gait: normal gait Extrem General: no pedal edema and no calf tenderness Psych Appearance: grossly normal and well kempt Mental Status: mental status grossly normal Course Course Course Narrative: The patient is hemodynamically stable. From discussion with the patient he did not passed much blood. He had 1 event earlier today, no continued bleeding. I discussed the clinical findings with his PCM, Dr. Solorzano. Dr. Solorzano will arrange a GI consult, he has arranged for the patient to follow- up with him tomorrow. Orders Ordered: ED Orders 06/05/20 11:47 EKG-12 Lead Stat 06/05/20 12:28 Complete Blood Count AUTO DIFF Stat Comprehensive Metabolic Panel Stat Partial Thromboplastin Time Stat Prothrombin Time INR Stat Type and Screen Stat Vital Signs Vital signs: Vital Signs - 8 hr 06/05/20 11:42 06/05/20 14:18 Temperature 97.7 F Pulse Rate 96 H 85 Respiratory Rate 14 12 Blood Pressure 170/87 H 146/78 H Pulse Oximetry 96 96 MDM - GI Bleed Lab Data Result diagrams: 06/05/20 12:28 06/05/20 12:28 Labs: Lab Results 06/05/20 06/05/20 06/05/20 Range/Units 12:28 12:28 12:28 WBC 3.8 L (4.5-11.0) X10^3/uL RBC 3.03 L (4.5-5.9) X10^6/uL Hgb 9.8 L (13.5-17.5) g/dL Hct 28.8 L (41-53) % MCV 95.2 (80-100) fL MCH 32.5 (26-34) PG MCHC 34.2 (30-36) % RDW 14.0 (11.6-14.8) % Plt Count 325 (150-400) X10^3/uL Neut % (Auto) 72.6 (50-75) % Lymph % (Auto) 14.2 L (25-40) % [place] % (Auto) 10.9 (3-14) % Eos % (Auto) 1.8 L (2-4) % Baso % (Auto) 0.5 (0-2) % Neut # (Auto) 2800 (5905-7379) /uL Lymph # (Auto) 500 L (8415-3536) /uL [place] # (Auto) 400 (0-900) /uL Eos # (Auto) 100 (0-450) /uL Baso # (Auto) 0 (0-100) /uL PT 11.9 (10.1-12.7) SECONDS INR 1.0 (0.9-1.3) APTT 21 L (26.4-36.2) SECONDS Sodium 130 L (137-145) mmol/L Potassium 4.9 (3.4-5.1) mmol/L Chloride 94 L (98-107) mmol/L Carbon Dioxide 25 (22-32) mmol/L BUN 9 (9-20) mg/dL Creatinine 1.08 (0.66-1.25) mg/dL Estimated GFR > 60.0 (>60) mL/min BUN/Creatinine Ratio 8.3 (6-22) Glucose 86 (80-110) mg/dL Calcium 8.8 (8.4-10.2) mg/dL Total Bilirubin 0.4 (0.2-1.3) mg/dL AST 42 (17-59) IU/L ALT 25 (<50) IU/L Alkaline Phosphatase 58 (38-126) U/L Total Protein 6.9 (6.3-8.2) g/dL Albumin 4.1 (3.5-5.0) g/dL Globulin 2.8 (1.7-4.1) g/dL Albumin/Globulin Ratio 1.5 (1.0-2.8) Blood Type Antibody Screen 06/05/20 Range/Units 12:28 WBC (4.5-11.0) X10^3/uL RBC (4.5-5.9) X10^6/uL Hgb (13.5-17.5) g/dL Hct (41-53) % MCV (80-100) fL MCH (26-34) PG MCHC (30-36) % RDW (11.6-14.8) % Plt Count (150-400) X10^3/uL Neut % (Auto) (50-75) % Lymph % (Auto) (25-40) % [place] % (Auto) (3-14) % Eos % (Auto) (2-4) % Baso % (Auto) (0-2) % Neut # (Auto) (3666-2448) /uL Lymph # (Auto) (7555-5971) /uL [place] # (Auto) (0-900) /uL Eos # (Auto) (0-450) /uL Baso # (Auto) (0-100) /uL PT (10.1-12.7) SECONDS INR (0.9-1.3) APTT (26.4-36.2) SECONDS Sodium (137-145) mmol/L Potassium (3.4-5.1) mmol/L Chloride (98-107) mmol/L Carbon Dioxide (22-32) mmol/L BUN (9-20) mg/dL Creatinine (0.66-1.25) mg/dL Estimated GFR (>60) mL/min BUN/Creatinine Ratio (6-22) Glucose (80-110) mg/dL Calcium (8.4-10.2) mg/dL Total Bilirubin (0.2-1.3) mg/dL AST (17-59) IU/L ALT (<50) IU/L Alkaline Phosphatase (38-126) U/L Total Protein (6.3-8.2) g/dL Albumin (3.5-5.0) g/dL Globulin (1.7-4.1) g/dL Albumin/Globulin Ratio (1.0-2.8) Blood Type A Positive Antibody Screen Negative Urine Dip Bedside Urine Glucose Negative Bedside Urine Bilirubin - Negative Bedside Urine Ketone +/- 5 Urine Specific [place] 1.020 Bedside Urine Occult Blood - Negative Bedside Urine pH 6.0 Bedside Urine Protein - Negative Bedside Urine Urobilinogen - Negative Bedside Urine Nitrite - Negative Bedside Urine Leukocytes - Negative Esterase Discharge Plan Departure Patient Disposition: Home Clinical Impression: Acute lower GI bleeding, Lower gastrointestinal hemorrhage Discharge Date/Time: 06/05/20 14:47 Instructions: Gastrointestinal Bleeding Activity Restrictions/Additional Instructions: Your blood counts are stable, you have not injured substantial blood loss. I have discussed her case with her primary care doctor, Dr. Solorzano. He is working to obtain a consultation with a drum drier, a GI specialist. He is given you appointment tomorrow at 4:30 p.m. at his clinic. Return the ER if you develop increased bleeding. Prescriptions: No Action Restasis 1 EACH dropperette 1 drp OPHTH BID Qty: 0 RF: 0 betamethasone, augmented 0.05 % cream 1 lesley Topical BID Qty: 1 RF: 3 aspirin 81 MG tablet,delayed release (DR/EC) 81 mg PO QDAY Qty: 90 RF: 3 sodium chloride 1 GM tablet 1 gm PO DAILY Qty: 0 RF: 0 rosuvastatin 10 mg tablet 10 mg .ROUTE DAILY Qty: 90 RF: 3 mirtazapine 30 mg tablet 30 mg PO HS Qty: 90 RF: 1 lisinopril 10 mg tablet 10 mg PO DAILY Qty: 90 RF: 1 zolpidem 10 mg tablet 10 mg PO BEDTIME Qty: 30 RF: 3 hydrochlorothiazide 25 mg tablet See Rx Instructions PO DAILY Qty: 135 RF: 3 melatonin 5 mg Tablet 5 mg PO BEDTIME PRN (Reason: Insomnia) RF: 0 ferrous sulfate 325 mg (65 mg iron) tablet 325 mg PO DAILY Qty: 30 RF: 0 Referrals: Stoney Solorzano MD [Primary Care Provider] -
[2020-06-05 14:18] VITALS: BP 146/78; PULSE 85; RESP 12; O2SAT 96
== END 2020-06-05 14:47 | disposition home or self-care (01) ==
PROVIDERS: Emergency Provider Emergency Medicine; Family Provider Family Medicine; PCP Family Medicine
DX: K92.2 Gastrointestinal hemorrhage, unspecified (principal)
CPT/HCPCS: 36415; 80053; 81003; 85025; 85610; 85730; 86850; 86900; 86901; 93005; 93010; 99283; 99284

== ENCOUNTER → 2020-12-29 14:05 | Outpatient (CLI) | payer MEDICARE, OTHER, SELFPAY ==
[2020-05-30 17:12] VITALS: BMI 26.4
[2020-12-29] MEDS: COVID-19 VACC, Ad26(JANSSEN)/PF 0.5 ML IM (14:17)
== END ==
PROVIDERS: Family Provider Family Medicine; PCP Family Medicine; Visit Provider Internal Medicine
DX: Z23 Encounter for immunization (principal)
CPT/HCPCS: 0031A; 91303

== ENCOUNTER 2021-03-23 15:54 | Emergency (ER) | payer MEDICARE, OTHER, SELFPAY ==
[2020-05-30 17:12] VITALS: BMI 26.4
--- NOTE | 2021-03-23 16:00 | DI.RAD.S_ITS ---
PROCEDURE: XR CHEST 1V INDICATIONS: Chest pain TECHNIQUE: One view of the chest was acquired. COMPARISON: None. FINDINGS: There is motion artifact. Median sternotomy changes. No focal consolidation. No visible pleural effusion or findings of pneumothorax. Normal heart size. IMPRESSION: No acute cardiopulmonary process demonstrated radiographically. Dictated by: Stoney Azevedo M.D. on 03/23/2021 at 16:41 Approved by: Stoney Azevedo M.D. on 03/23/2021 at 16:42
[2021-03-23 16:26] VITALS: BP 140/79; PULSE 92; RESP 19; TEMP 36.7; O2SAT 96; BMI 27.1
[2021-03-23 16:59] LABS: Add Manual Diff / Slide Review NO; Basophils Absolute Auto 0 /uL (0-100); Basophils Percent Auto 0.6 % (0-2); Eosinophils Absolute Auto 200 /uL (0-450); Eosinophils Percent Auto 3.2 % (2-4); Hematocrit 42.1 % (41-53); Hemoglobin 14.4 g/dL (13.5-17.5); Lymphocytes Absolute Auto 700 /uL (1100-4500); Lymphocytes Percent Auto 13.9 % (25-40); Mean Corpuscular HGB Conc 34.3 % (30-36); Mean Corpuscular Hemoglobin 33.3 PG (26-34); Mean Corpuscular Volume 96.9 fL (80-100); Monocytes Absolute Auto 600 /uL (0-900); Monocytes Percent Auto 10.5 % (3-14); Neutrophils Absolute Auto 3800 /uL (1500-7000); Neutrophils Percent Auto 71.8 % (50-75); Platelet Count 265 X10^3/uL (150-400); Red Blood Cell Count 4.34 X10^6/uL (4.5-5.9); Red Cell Distribution Width 13.5 % (11.6-14.8); White Blood Cell Count 5.3 X10^3/uL (4.5-11.0)
[2021-03-23 17:14] LABS: Alanine Aminotransferase 19 IU/L (<50); Albumin 4.7 g/dL (3.5-5.0); Albumin Globulin Ratio 1.4 (1.0-2.8); Alkaline Phosphatase 60 U/L (38-126); Aspartate Aminotransferase 39 IU/L (17-59); BUN Creatinine Ratio 13.2 (6-22); Bilirubin Total 0.4 mg/dL (0.2-1.3); Blood Urea Nitrogen 12 mg/dL (9-20); Calcium 9.7 mg/dL (8.4-10.2); Carbon Dioxide 23 mmol/L (22-32); Chloride 92 mmol/L (98-107); Creatine Kinase 139 U/L (55-170); Estimated Glomerular Filt Rate > 60.0 mL/min (>60); Globulin 3.4 g/dL (1.7-4.1); Glucose 98 mg/dL (80-110); HEMOLYSIS < 15 (0-50); Lipase 191 U/L (23-300); Magnesium 1.5 mg/dL (1.6-2.3); Potassium 4.5 mmol/L (3.4-5.1); Sodium 128 mmol/L (137-145); Total Protein 8.1 g/dL (6.3-8.2)
[2021-03-23 17:26] LABS: NT-proBNP (BNP-Adult 18+) 314 pg/mL (<450); Troponin I < 0.012 ng/mL (0.01-0.034)
[2021-03-23 17:29] LABS: CKMB % Relative Index 2.1 % (1.5-5.0); Creatine Kinase MB 2.94 ng/mL (<2.37)
--- NOTE | 2021-03-23 20:56 | ED_ITS ---
HPI - Extremity Problem General Chief complaint: Extremity Problem,Nontraumatic Stated complaint: swollen ankles to knees, swollen wrists Time Seen by Provider: 03/23/21 18:02 Source: patient Mode of arrival: Family Vehicle Limitations: no limitations History of Present Illness HPI Narrative: 80-year-old male nonsmoker with history of hypertension in GI bleed presents with a chief complaint of gradually worsening bilateral lower extremity edema over the past few weeks. He distally has noted some swelling in both of his hands as well. He states he has had no other symptoms such as dizziness, weakness or lightheadedness. He denies any shortness of breath. He denies any fever or chills nor redness, warmth of his extremities. He denies any history of blood clot or recent travel. He states he feels quite well on the whole. He denies any change in medication or diet. Related Data Home Medications Medication Instructions Recorded Confirmed cyclosporine 0.05 % eye drops in a 1 drp OPHTH BID #0 07/12/16 03/23/21 dropperette (Restasis) sodium chloride 1 gram tablet 1 gm PO DAILY #0 01/13/18 03/23/21 melatonin 5 mg tablet 5 mg PO BEDTIME PRN 02/10/19 03/23/21 Previous Rx's Medication Instructions Recorded betamethasone, augmented 0.05 % 1 lesley TOPICAL BID #1 tube 07/12/16 topical cream aspirin 81 mg tablet,delayed 81 mg PO QDAY #90 tab 10/07/17 release ferrous sulfate 325 mg (65 mg 325 mg PO DAILY #30 tab 06/02/20 iron) tablet lisinopril 10 mg tablet 10 mg PO DAILY #90 tab 07/24/20 mirtazapine 30 mg tablet 30 mg PO HS #90 tab 09/27/20 sennosides 8.6 mg tablet (senna) 8.6 mg PO BID #30 tab 12/05/20 rosuvastatin 10 mg tablet 10 mg .ROUTE DAILY #90 tab 02/07/21 hydrochlorothiazide 25 mg tablet See Rx Instructions PO DAILY #135 02/20/21 tab erythromycin 5 mg/gram (0.5 %) eye 1 applic OPHTHALMIC (EYE) Q6H #3.5 02/24/21 ointment g zolpidem 10 mg tablet See Rx Instructions .ROUTE 03/14/21 .COMPLEX #30 tab furosemide 40 mg tablet (Lasix) 40 mg PO DAILY #5 tab 03/23/21 Allergies Allergy/AdvReac Type Severity Reaction Status Date / Time No Known Drug Allergies Allergy Verified 03/23/21 16:26 Review of Systems Constitutional Constitutional: Denies chills, Denies fatigue, Denies fever(s) and Denies weakness Eyes Eyes: Denies change in vision and Denies loss of vision ENT Ears, Nose, Mouth, and Throat: Denies change in voice, Denies dizziness and Denies throat swelling Cardiovascular Cardiovascular: Denies chest pain, Denies lightheadedness, Denies dyspnea and Denies dyspnea on exertion Respiratory Respiratory: Denies cough, Denies dyspnea, Denies dyspnea on exertion and Denies wheezing Gastrointestinal Gastrointestinal: Denies abdominal pain, Denies diarrhea, Denies nausea and Denies vomiting Integumentary/Breasts Skin/Breast: Denies pruritus, Denies rash and Denies wounds Neurologic Neurologic: Denies confusion, Denies dizziness, Denies loss of vision and Denies weakness Psychiatric Psychiatric: Denies anxiety, Denies confusion and Denies depression Endocrine Endocrine: Denies fatigue Hematologic/Lymphatic Hematologic/Lymphatic: Denies easy bruising Allergic/Immunologic Allergic/Immunologic: Denies urticaria, Denies throat swelling and Denies wheezing Patient History Medical History Anxiety (06/26/17) Cataract (~09/2012) Chicken pox 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) Diverticulosis of large intestine without hemorrhage (01/13/18) Essential hypertension (02/27/11) GI bleed Hearing loss Hyperlipidemia (02/27/11) Hypertension Hyponatremia Kidney disease (~12/2014) Measles Melanoma (~09/2014) Melanoma Mumps Neoplasm of kidney (12/01/14) Peripheral vascular disease (~12/2014) Rosacea Scoliosis (~09/2014) 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 Well-developed patient, in mild distress. HEAD: Atraumatic. Normocephalic. EYES: Pupils equal round and reactive. Extraocular motions intact. No scleral icterus. No injection or drainage. ENT: Nose without bleeding, purulent drainage. Throat without erythema, tonsillar hypertrophy or exudate. Airway patent. NECK: Trachea midline. Non tender CARDIOVASCULAR: Regular rate and rhythm without murmurs, gallops, or rubs. RESPIRATORY: Clear to auscultation. Breath sounds equal bilaterally. No wheezes, rales, or rhonchi. GASTROINTESTINAL: Abdomen soft, non-tender, nondistended. EXTREMITIES: 1+ pitting edema bilateral lower extremities in the absence of pain, redness or warmth. No induration. No calf pain BACK: Nontender without deformity or crepitance. No flank tenderness. NEURO: AOx3. SKIN: No rash or erythema of visible areas Initial Vital Signs Initial Vital Signs: Vital Signs Temperature 98.1 F 03/23/21 16:26 Pulse Rate 92 H 03/23/21 16:26 Respiratory Rate 19 03/23/21 16:26 Blood Pressure 140/79 03/23/21 16:26 Pulse Oximetry 96 03/23/21 16:26 Course Orders Ordered: Discontinued Medications Hydrocodone Bitart/Acetaminophen (Hydrocodone/Acet 5/325 Prepack) 1 bottle MISC SEEINSTR ONE Stop: 03/23/21 21:23 Last Admin: 03/23/21 21:42 Dose: Not Given Documented by: CTR.[email or web address] Cefazolin Sodium (Cephalexin 250 Mg Prepack) 1 bottle MISC SEEINSTR ONE Stop: 03/23/21 21:23 Last Admin: 03/23/21 21:42 Dose: Not Given Documented by: CTR.[email or web address] Vital Signs Vital signs: Vital Signs - 8 hr 03/23/21 21:03 03/23/21 21:30 03/23/21 22:00 Pulse Rate 91 H 96 H 108 H Blood Pressure 151/84 H Pulse Oximetry 97 96 96 MDM - Extremity (Nontraumatic) Lab Data Result diagrams: 03/23/21 16:50 03/23/21 16:50 Labs: Lab Results 03/23/21 03/23/21 Range/Units 16:50 16:50 WBC 5.3 (4.5-11.0) X10^3/uL RBC 4.34 L (4.5-5.9) X10^6/uL Hgb 14.4 (13.5-17.5) g/dL Hct 42.1 (41-53) % MCV 96.9 (80-100) fL MCH 33.3 (26-34) PG MCHC 34.3 (30-36) % RDW 13.5 (11.6-14.8) % Plt Count 265 (150-400) X10^3/uL Neut % (Auto) 71.8 (50-75) % Lymph % (Auto) 13.9 L (25-40) % [place] % (Auto) 10.5 (3-14) % Eos % (Auto) 3.2 (2-4) % Baso % (Auto) 0.6 (0-2) % Neut # (Auto) 3800 (3556-2307) /uL Lymph # (Auto) 700 L (7554-9677) /uL [place] # (Auto) 600 (0-900) /uL Eos # (Auto) 200 (0-450) /uL Baso # (Auto) 0 (0-100) /uL Sodium 128 L (137-145) mmol/L Potassium 4.5 (3.4-5.1) mmol/L Chloride 92 L (98-107) mmol/L Carbon Dioxide 23 (22-32) mmol/L BUN 12 (9-20) mg/dL Creatinine 0.91 (0.66-1.25) mg/dL Estimated GFR > 60.0 (>60) mL/min BUN/Creatinine Ratio 13.2 (6-22) Glucose 98 (80-110) mg/dL Calcium 9.7 (8.4-10.2) mg/dL Magnesium 1.5 L (1.6-2.3) mg/dL Total Bilirubin 0.4 (0.2-1.3) mg/dL AST 39 (17-59) IU/L ALT 19 (<50) IU/L Alkaline Phosphatase 60 (38-126) U/L Total Creatine Kinase 139 (55-170) U/L CK-MB (CK-2) 2.94 H (<2.37) ng/mL CK-MB (CK-2) Rel Index 2.1 (1.5-5.0) % Troponin I < 0.012 (0.01-0.034) ng/mL NT-Pro-B Natriuret Pep 314 (<450) pg/mL Total Protein 8.1 (6.3-8.2) g/dL Albumin 4.7 (3.5-5.0) g/dL Globulin 3.4 (1.7-4.1) g/dL Albumin/Globulin Ratio 1.4 (1.0-2.8) Lipase 191 (23-300) U/L MDM Narrative Medical decision making narrative: Patient with bilateral upper and lower extremity edema in the absence of any other symptoms such as chest pain or shortness of breath, fatigue, orthopnea, exertional dyspnea. His exam, story an d vitals are very reassuring. There is no evidence of renal failure. Suggestion of elevated BNP but no evidence of respiratory distress, oxygen requirements or other elements to suggests patient is not appropriate for discharged or require admission. Patient given return precautions and is had qu estions answered to his apparent satisfaction Discharge Plan Departure Patient Disposition: Home Clinical Impression: Edema, peripheral Instructions: DI for Peripheral Edema -- Bilateral Activity Restrictions/Additional Instructions: *You have been diagnosed with [bilateral lower extremity edema] *What to do: *Please continue to take your regular medications as directed. [x ] New medication prescriptions sent to your pharmacy: [[facility]] [ ] New medication written as a paper prescription [ ] No new medications given *Please follow up with your primary care provider in 2-3 days, call for an appointment. Let them know you were seen in the Emergency Department and that we ask that you be seen in follow up. We will electronically transmit a record of today's note if your PCP is in our system *If you do not have a primary care provider please contact the [facility] Resource line at [phone]. They will ask some questions about your medical history and help get you set up with a doctor in the community. *Return to Emergency Department if you should have any new, worsening or concerning symptoms, such as [fever greater than 101 F, shaking chills, worsening pain, persistent vomiting or other bothersome symptoms] Prescriptions: New furosemide [Lasix] 40 mg tablet 40 mg PO DAILY Qty: 5 RF: 0 No Action sennosides [senna] 8.6 mg tablet 8.6 mg PO BID Qty: 30 RF: 1 erythromycin 5 mg/gram (0.5 %) ointment 1 applic ophthalmic (eye) Q6H Qty: 3.5 RF: 2 Restasis 1 EACH dropperette 1 drp OPHTH BID Qty: 0 RF: 0 betamethasone, augmented 0.05 % cream 1 lesley Topical BID Qty: 1 RF: 3 aspirin 81 MG tablet,delayed release (DR/EC) 81 mg PO QDAY Qty: 90 RF: 3 sodium chloride 1 GM tablet 1 gm PO DAILY Qty: 0 RF: 0 lisinopril 10 mg tablet 10 mg PO DAILY Qty: 90 RF: 3 mirtazapine 30 mg tablet 30 mg PO HS Qty: 90 RF: 1 rosuvastatin 10 mg tablet 10 mg .ROUTE DAILY Qty: 90 RF: 3 hydrochlorothiazide 25 mg tablet See Rx Instructions PO DAILY Qty: 135 RF: 3 zolpidem 10 mg tablet See Rx Instructions .ROUTE .COMPLEX Qty: 30 RF: 0 melatonin 5 mg Tablet 5 mg PO BEDTIME PRN (Reason: Insomnia) RF: 0 ferrous sulfate 325 mg (65 mg iron) tablet 325 mg PO DAILY Qty: 30 RF: 0 Referrals: Stoney Solorzano MD [Primary Care Provider] -
[2021-03-23 21:03] VITALS: PULSE 91; O2SAT 97
[2021-03-23 21:30] VITALS: PULSE 96; O2SAT 96
[2021-03-23 22:00] VITALS: BP 151/84; PULSE 108; O2SAT 96
== END 2021-03-23 22:21 | disposition home or self-care (01) ==
PROVIDERS: Emergency Medicine; Emergency Provider Emergency Medicine; Family Provider Family Medicine; PCP Family Medicine; Referring Provider Family Medicine
DX: R60.0 Localized edema (principal); R07.9 Chest pain, unspecified
CPT/HCPCS: 36415; 71045; 80053; 82550; 82553; 83690; 83735; 83880; 84484; 85025; 93005; 99283; 99284

== ENCOUNTER → 2021-04-05 15:13 | Outpatient (CLI) | payer MEDICARE, OTHER, SELFPAY ==
[2020-05-30 17:12] VITALS: BMI 26.4
--- NOTE | 2021-04-05 15:19 | DI.ECHO.S_ITS ---
[facility] +---------+ : : [address] : : : : [id number] : : : : Phone: [phone]+ Echocardiogram Report + + :Name: JASON GONZALEZ Study Date: 04/05/2021 Height: 71 in : :[facility] ReadingLocation: Weight: 194 lb : : Gender: Male BSA: 2.1 m2 : :: 1940 Age: 80 yrs BP: 153/88 mmHg: :Reason For Study: EDEMA : :Ordering Physician: JANEL, : :TRUDY Performed By: Fabiola Alvarenga : :Referring: TRUDY ISLAS : + + Interpretation Summary The ejection fraction is estimated to be 55-60%. The ascending aorta is mildly enlarged. There is no significant valvular heart disease. Procedure: A two-dimensional transthoracic echocardiogram with color flow and Doppler was performed. The study quality was technically adequate. There is no prior echocardiogram noted for this patient. The patient was in sinus rhythm with heart rates between 75-82 bpm during the exam. Left Ventricle: The left ventricle is normal in size and wall thickness. The ejection fraction is estimated to be 55-60%. Left ventricular wall motion is normal. Diastolic parameters suggest a relaxation abnormality of the left ventricle, consistent with probable normal filling pressures. Right Ventricle: The right ventricle is normal in size and function. Atria: Both atria are normal in size. There is no Doppler evidence for an interatrial shunt. Mitral Valve: The mitral valve is normal in structure and function. There is mild mitral annular calcification. There is trace mitral regurgitation. Aortic Valve: The aortic valve is trileaflet. The aortic valve opens well. There is no aortic valve stenosis. No aortic regurgitation is present. Tricuspid Valve: The tricuspid valve is normal in structure and function. There is mild tricuspid regurgitation. Pulmonary artery pressures cannot be estimated because of the lack of a measurable TR jet velocity but the IVC suggests a CVP of around 3 mmHg. Pulmonic Valve: The pulmonic valve leaflets are thin and pliable; valve motion is normal. There is trace pulmonic regurgitation. Great Vessels: The aortic root is normal size. The ascending aorta is mildly enlarged. The IVC is of normal diameter and collapses greater than 50% with a sniff. This suggests a low right atrial pressure of 3 mm Hg. Pericardium/ Pleura There is no pericardial effusion. There is no pleural effusion. MMode/2D Measurements & Calculations LVIDd: 4.8 cm LVOT diam: 2.0 cm LVIDs: 3.0 cm Ao root diam: 3.3 cm FS: 38.8 % asc Aorta Diam: 3.6 cm IVSd: 0.83 cm Ao Arch Diam (Prox Trans): 3.5 cm LVPWd: 0.82 cm LV mulligan. diameter/BSA (cm/m^2): 2.3 LV sys. diameter/BSA (cm/m^2): 1.4 LA A2 area: 18.4 cm2 RA long axis: 5.1 cm LA A4 area: 18.7 cm2 RA area: 18.1 cm2 LA length (vol): 5.9 cm RA vol: 54.4 ml LA vol: 50.0 ml RA : 26.1 ml/m2 LA vol index: 24.0 ml/m2 IVC diam: 1.7 cm RVD1 (basal): 3.7 cm TAPSE: 1.9 cm Doppler Measurements & Calculations Ao V2 max: 134.2 cm/sec LVOT Max Cortez: 80.5 cm/sec Ao V2 mean: 95.0 cm/sec LV V1 max P.6 mmHg Ao max P.2 mmHg LV V1 VTI: 17.1 cm Ao mean P.0 mmHg SUHAIL(I,D): 1.9 cm2 Ao V2 VTI: 27.5 cm SUHAIL(V,D): 1.8 cm2 sev ratio: 0.62 SUHAIL indexed to BSA (cm^2/m^2): 0.92 MV E max cortez: 48.2 cm/sec PA V2 max: 90.7 cm/sec MV A max cortez: 70.2 cm/sec PA V2 mean: 59.4 cm/sec MV E/A: 0.69 PA mean P.6 mmHg Med Peak E' Cortez: 9.6 cm/sec PA pr(Accel): 43.0 mmHg E/E' med: 5.0 Lat Peak E' Cortez: 11.7 cm/sec E/E' lat: 4.1 E/e' average: 4.6 MV dec time: 0.23 sec SV(OT): 52.6 ml Reading Physician:04:56 PM
== END ==
PROVIDERS: Family Provider Family Medicine; PCP Family Medicine; Referring Provider Family Medicine; Visit Provider Family Medicine
DX: I07.1 Rheumatic tricuspid insufficiency (principal); I77.89 Other specified disorders of arteries and arterioles; R60.9 Edema, unspecified
CPT/HCPCS: 93306

== ENCOUNTER → 2022-07-23 11:34 | Outpatient (CLI) | payer MEDICARE, OTHER, SELFPAY ==
[2020-05-30 17:12] VITALS: BMI 26.4
[2022-07-23 12:56] LABS: Alanine Aminotransferase 23 IU/L (<50); Albumin 4.8 g/dL (3.5-5.0); Albumin Globulin Ratio 1.4 (1.0-2.8); Alkaline Phosphatase 70 U/L (38-126); Aspartate Aminotransferase 32 IU/L (17-59); BUN Creatinine Ratio 10.8 (6-22); Bilirubin Total 0.6 mg/dL (0.2-1.3); Blood Urea Nitrogen 12 mg/dL (9-20); Calcium 9.5 mg/dL (8.4-10.2); Carbon Dioxide 28 mmol/L (22-32); Chloride 96 mmol/L (98-107); Estimated Glomerular Filt Rate > 60 mL/min (>60); Globulin 3.5 g/dL (1.7-4.1); Glucose 95 mg/dL (80-110); HEMOLYSIS < 15 (0-50); Sodium 134 mmol/L (137-145); Total Protein 8.3 g/dL (6.3-8.2)
[2022-07-23 12:57] LABS: Potassium 5.4 mmol/L (3.4-5.1)
[2022-07-23 13:18] LABS: Add Manual Diff / Slide Review NO; Basophils Absolute Auto 0 /uL (0-100); Basophils Percent Auto 0.4 % (0-2); Eosinophils Absolute Auto 100 /uL (0-450); Eosinophils Percent Auto 2.5 % (2-4); Hematocrit 44.6 % (41-53); Hemoglobin 15.2 g/dL (13.5-17.5); Lymphocytes Absolute Auto 700 /uL (1100-4500); Lymphocytes Percent Auto 14.7 % (25-40); Mean Corpuscular Hemoglobin 33.5 PG (26-34); Mean Corpuscular Volume 98.4 fL (80-100); Monocytes Absolute Auto 700 /uL (0-900); Monocytes Percent Auto 14.1 % (3-14); Neutrophils Absolute Auto 3400 /uL (1500-7000); Neutrophils Percent Auto 68.3 % (50-75); Platelet Count 226 X10^3/uL (150-400); Red Blood Cell Count 4.53 X10^6/uL (4.5-5.9); Red Cell Distribution Width 13.2 % (11.6-14.8)
[2022-07-23 13:44] LABS: TSH w/ Reflex to FT4 4.57 uIU/mL (0.47-4.68)
== END ==
PROVIDERS: Family Provider Family Medicine; PCP Family Medicine; Referring Provider Family Medicine; Visit Provider Family Medicine
DX: C64.1 Malignant neoplasm of right kidney, except renal pelvis (principal); E78.5 Hyperlipidemia, unspecified; I10 Essential (primary) hypertension
CPT/HCPCS: 36415; 80053; 84443; 85025

== ENCOUNTER → 2022-10-02 12:42 | Outpatient (CLI) | payer MEDICARE, OTHER, SELFPAY ==
[2020-05-30 17:12] VITALS: BMI 26.4
--- NOTE | 2022-10-02 12:43 | DI.CT.S_ITS ---
PROCEDURE: CT SOFT TISSUE NECK W CON INDICATIONS: ASSESS MASS NEAR RT ANTERIOR NECK TECHNIQUE: After the administration of intravenous contrast, 3.0 mm axial sections acquired from the sella to the aortic arch. 3 mm thick coronal and sagittal reformats were generated. For radiation dose reduction, the following was used: automated exposure control. COMPARISON: [facility], CT, CT SOFT TISSUE NECK W CON, 08/31/2018, 11:39. FINDINGS: Skull Base: The visualized intracranial contents, skull, and orbits are unremarkable. Visualized paranasal sinuses are clear. Pharynx and Larynx: The nasopharyngeal airway is patent and midline. Parapharyngeal soft tissues including palatine tonsils and base of the tongue are normal. Retropharyngeal space unremarkable. Normal appearance of the false and true vocal cords. Muscles and Fascial Planes: Fascial planes are well maintained. No abscess or mass lesion. Lymph Nodes: No evidence of adenopathy. Vasculature: Unremarkable. Submandibular and Parotid Glands: Right submandibular gland is surgically absent. Surgical clips and granulation tissue noted. No evidence of recurrent or residual disease. Left subclavian gland unremarkable. Thyroid: Unremarkable. No enlarged or calcified nodules. Small 8 mm nodule in the posterior left thyroid Bones: No acute fracture. No osteolytic or blastic lesion is evident. Normal bone mineralization. Lung Apices: The visualized lung apices are clear. IMPRESSION: 1. Stable CT of the neck status post right submandibular gland resection. No evidence of recurrent or residual disease Approved by: Arnie Pringle M.D. on 10/02/2022 at 18:31
[2022-10-02 13:58] LABS: Add Manual Diff / Slide Review NO; Basophils Absolute Auto 0 /uL (0-100); Basophils Percent Auto 0.6 % (0-2); Eosinophils Absolute Auto 100 /uL (0-450); Eosinophils Percent Auto 1.4 % (2-4); Hematocrit 42.7 % (41-53); Hemoglobin 14.6 g/dL (13.5-17.5); Lymphocytes Absolute Auto 800 /uL (1100-4500); Lymphocytes Percent Auto 14.7 % (25-40); Mean Corpuscular HGB Conc 34.1 % (30-36); Mean Corpuscular Hemoglobin 33.1 PG (26-34); Mean Corpuscular Volume 96.9 fL (80-100); Monocytes Absolute Auto 500 /uL (0-900); Monocytes Percent Auto 9.2 % (3-14); Neutrophils Absolute Auto 4200 /uL (1500-7000); Neutrophils Percent Auto 74.1 % (50-75); Platelet Count 250 X10^3/uL (150-400); Red Blood Cell Count 4.41 X10^6/uL (4.5-5.9); Red Cell Distribution Width 13.5 % (11.6-14.8); White Blood Cell Count 5.7 X10^3/uL (4.5-11.0)
[2022-10-02 14:07] LABS: Alanine Aminotransferase 25 IU/L (<50); Albumin 4.7 g/dL (3.5-5.0); Albumin Globulin Ratio 1.3 (1.0-2.8); Alkaline Phosphatase 68 U/L (38-126); Aspartate Aminotransferase 32 IU/L (17-59); BUN Creatinine Ratio 11.1 (6-22); Bilirubin Total 0.4 mg/dL (0.2-1.3); Blood Urea Nitrogen 14 mg/dL (9-20); Calcium 9.1 mg/dL (8.4-10.2); Carbon Dioxide 27 mmol/L (22-32); Chloride 95 mmol/L (98-107); Estimated Glomerular Filt Rate 57 mL/min (>60); Globulin 3.6 g/dL (1.7-4.1); Glucose 98 mg/dL (80-110); HEMOLYSIS < 15 (0-50); Potassium 4.4 mmol/L (3.4-5.1); Sodium 133 mmol/L (137-145); Total Protein 8.3 g/dL (6.3-8.2)
== END ==
PROVIDERS: Internal Medicine Medical Oncology; Family Provider Family Medicine; PCP Family Medicine; Referring Provider Dermatology; Visit Provider Dermatology
DX: D48.5 Neoplasm of uncertain behavior of skin (principal); E04.1 Nontoxic single thyroid nodule; Z85.820 Personal history of malignant melanoma of skin; Z85.828 Personal history of other malignant neoplasm of skin
CPT/HCPCS: 70491; 80053; 85025; Q9967

== ENCOUNTER → 2024-09-28 10:36 | Outpatient (CLI) | payer MEDICARE, OTHER, SELFPAY ==
[2020-05-30 17:12] VITALS: BMI 26.4
[2024-09-28 11:05] LABS: Add Manual Diff / Slide Review NO; Basophils Absolute Auto 100 /uL (0-100); Basophils Percent Auto 1.1 % (0-2); Eosinophils Absolute Auto 100 /uL (0-450); Eosinophils Percent Auto 2.2 % (2-4); Hematocrit 41.5 % (41-53); Lymphocytes Absolute Auto 800 /uL (1100-4500); Lymphocytes Percent Auto 17.4 % (25-40); Mean Corpuscular HGB Conc 33.8 % (30-36); Mean Corpuscular Hemoglobin 32.1 PG (26-34); Mean Corpuscular Volume 94.9 fL (80-100); Monocytes Absolute Auto 600 /uL (0-900); Monocytes Percent Auto 12.7 % (3-14); Neutrophils Absolute Auto 3200 /uL (1500-7000); Neutrophils Percent Auto 66.6 % (50-75); Platelet Count 239 X10^3/uL (150-400); Red Blood Cell Count 4.38 X10^6/uL (4.5-5.9); Red Cell Distribution Width 13.3 % (11.6-14.8); White Blood Cell Count 4.8 X10^3/uL (4.5-11.0)
[2024-09-28 11:45] LABS: Alanine Aminotransferase 21 IU/L (<50); Albumin 4.7 g/dL (3.5-5.0); Albumin Globulin Ratio 1.7 (1.0-2.8); Alkaline Phosphatase 77 U/L (38-126); Aspartate Aminotransferase 38 IU/L (17-59); BUN Creatinine Ratio 17.8 (6-22); Bilirubin Total 0.7 mg/dL (0.2-1.3); Blood Urea Nitrogen 19 mg/dL (9-20); Calcium 9.5 mg/dL (8.4-10.2); Carbon Dioxide 26 mmol/L (22-32); Chloride 90 mmol/L (98-107); Cholesterol 146 mg/dL (140-199); Estimated Glomerular Filt Rate > 60 mL/min (>60); Globulin 2.7 g/dL (1.7-4.1); Glucose 103 mg/dL (80-110); HDL Cholesterol 78 mg/dL (40-60); HEMOLYSIS 24 (0-50); LDL Cholesterol Calculated 50 mg/dL (<100); Potassium 4.9 mmol/L (3.4-5.1); Sodium 127 mmol/L (137-145); Total Protein 7.4 g/dL (6.3-8.2); Triglycerides 89 mg/dL (35-150)
[2024-09-28 12:14] LABS: Prostate Specific Antigen 3.16 ng/mL (0.10-4.00); TSH w/ Reflex to FT4 6.52 uIU/mL (0.47-4.68)
[2024-09-28 12:48] LABS: Free T4, Direct Thyroxine 0.87 ng/dL (0.78-2.19)
== END ==
LOC: LAB 10:37
PROVIDERS: Family Provider Family Medicine; PCP Family Medicine; Referring Provider Family Medicine; Visit Provider Family Medicine
DX: E78.5 Hyperlipidemia, unspecified (principal); I12.9 Hypertensive chronic kidney disease with stage 1 through stage 4 chronic kidney disease, or unspecified chronic kidney disease; N18.31 Chronic kidney disease, stage 3a; C64.1 Malignant neoplasm of right kidney, except renal pelvis
CPT/HCPCS: 36415; 80053; 80061; 84153; 84439; 84443; 85025

== ENCOUNTER 2024-11-29 20:19 | Inpatient (IN) | payer MEDICARE, OTHER, SELFPAY ==
[2020-05-30 17:12] VITALS: BMI 26.4
[2024-11-29] VITALS (7 sets, daily range): BP systolic 134–149; BP diastolic 70–86; PULSE 81–90; RESP 13–23; TEMP 36.9; O2SAT 91–95; BMI 29.2
--- NOTE | 2024-11-29 20:30 | DI.US.S_ITS ---
PROCEDURE: US SCROTUM INDICATIONS: right testicular pain/swelling TECHNIQUE: Real-time scanning was performed of the scrotum and testicles, with image documentation. Color and pulse Doppler interrogation was performed of both testicles. COMPARISON: None. FINDINGS: Right: Testicle is normal in size, and homogenous in echotexture. Epididymis is normal in overall size and morphology. Diffuse scrotal wall thickening. No hydrocele. Left: Testicle is normal in size, and homogeneous in echotexture. Epididymis is normal in overall size and morphology. Diffuse scrotal wall thickening. No hydrocele. Small debris containing varicocele. Doppler: Color and pulse Doppler demonstrate normal and symmetric arterial flow in both testicles. IMPRESSION: Diffuse scrotal wall thickening, possibly infection. Small left hydrocele. No acute torsion. Dictated by: Samuel Dawson M.D. on 11/29/2024 at 21:56 Approved by: Samuel Dawson M.D. on 11/29/2024 at 21:58
--- NOTE | 2024-11-29 22:24 | ED.MALEGU ---
HPI - Male Genitourinary General Chief complaint: Urogenital-Male Stated complaint: RT testicle swollen Time Seen by Provider: 11/29/24 21:31 Source: patient, RN notes reviewed and old records reviewed Mode of arrival: Ambulatory Limitations: no limitations History of Present Illness HPI Narrative: 84-year-old male history of CKD stage IIIA, hypertension, dyslipidemia, prior nephrectomy, hypothyroidism with complaint of testicular swelling particularly on the right for the past week worsening today and yesterday. Patient notes it has been about a week or so if symptoms he states he was not normally that is swollen. He notes that Dr. Solorzano he was primary care physician did recently change his blood pressure medications he does not think that they stopped his diuretics. He was not sure of the exact medication changes. Patient denies any new chest pain or shortness of breath. No fevers no cold cough or congestion. No nausea or vomiting. No GI symptoms. No urinary issues. Patient states his testicles are not painful just very swollen particularly the right side. He notes the swelling has been coming up his legs over the past week. Has had a prior nephrectomy. Denies any drug allergies. Denies any tobacco, states he was 3 alcoholic drinks daily, denies any recreational drugs. He does not think he that he follows with a coat agent. He does see Dr. Yuen for dermatology and Dr. Solorzano for primary care. Related Data Home Medications Medication Instructions Recorded Confirmed cyclosporine 0.05 % eye drops in a 1 drp OPHTH BID ##0 07/12/16 07/26/24 dropperette (Restasis) sodium chloride 1 gram tablet 1 gm PO DAILY ##0 01/13/18 07/26/24 melatonin 5 mg tablet 5 mg PO BEDTIME PRN Insomnia 02/10/19 07/26/24 Previous Rx's Medication Instructions Recorded betamethasone, augmented 0.05 % 1 lesley topical BID #1 tube 07/12/16 topical cream aspirin 81 mg tablet,delayed 81 mg PO QDAY #90 tabs 10/07/17 release ferrous sulfate 325 mg (65 mg 325 mg PO DAILY #30 tabs 06/02/20 iron) tablet sennosides 8.6 mg tablet (senna) 8.6 mg PO BID #30 tabs 12/05/20 furosemide 40 mg tablet See Rx Instructions .Route 04/25/23 .COMPLEX #90 tabs amlodipine 5 mg tablet 5 mg PO DAILY #90 tabs 04/29/24 hydrochlorothiazide 25 mg tablet See Rx Instructions PO DAILY #135 05/27/24 tabs lisinopril 40 mg tablet 40 mg PO DAILY #90 tabs 05/27/24 mirtazapine 30 mg tablet 30 mg PO ONCE PM #90 tabs 08/25/24 doxepin 10 mg capsule 10 mg PO QAM #30 caps 09/20/24 rosuvastatin 10 mg tablet 10 mg PO DAILY #90 tabs 10/07/24 Allergies Allergy/AdvReac Type Severity Reaction Status Date / Time No Known Drug Allergies Allergy Verified 09/28/24 10:41 Review of Systems Review of Systems ROS Unobtainable: All systems reviewed & are unremarkable except as noted in HPI and below Patient History Medical History Melanoma 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 Hyponatremia TIA (transient ischemic attack) Scoliosis (~09/2014) Rosacea Mumps Measles Chicken pox Tinnitus Hearing loss Cataract (~09/2012) Kidney disease (~12/2014) Peripheral vascular disease (~12/2014) Hypertension Melanoma (~09/2014) Diverticulosis of large intestine without hemorrhage (01/13/18) Anxiety (06/26/17) 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) Status post nephrectomy (02/02/15) Neoplasm of kidney (12/01/14) Hyperlipidemia (02/27/11) Essential hypertension (02/27/11) Surgical History History of kidney removal Anesthesia Surgical procedure planned (~09/2014) History of nephrectomy (11/25/14) Social History marital status: household members: none Smoking Status: Never smoker alcohol intake: current substance use type: does not use Smoking Status: Never smoker alcohol intake frequency: 0-2 drinks per day Alcohol type: wine Exam Narrative Exam Narrative: GENERAL: Alert and oriented x three, male in mild distress HEENT: Head normocephalic, atraumatic, EOMI, pupils reactive, face symmetric, moist mucous membranes NECK: Supple, full range of motion CARDIOVASCULAR: Regular rate and rhythm without murmurs, rubs or gallops. Positive for JVD. Patient has 2+ pitting edema bilateral lower extremities extending up to his thighs as well as scrotal edema. RESPIRATORY: Breath sounds equal bilaterally, no wheezes rales or rhonchi. Mild tachypnea, no accessory muscle use. ABDOMEN: Soft, nontender. Normoactive bowel sounds all 4 quadrants. No guarding or rebound, rigidity, no mass : No CVA tenderness, Male: Patient has a edema of bilateral testicles moves all some mild edema of the penis, no penile discharge or lesions, testicles non-tender, cremasteric reflex intact, no inguinal hernias noted. EXTREMITIES: Normal range of motion, no clubbing. Neurovascularly intact NEUROLOGICAL: Cranial nerves II through XII grossly intact. Moving all extremities SKIN: Warm, dry, no petechiae, no rashes or lesions. Initial Vital Signs Initial Vital Signs: Vital Signs Temperature 98.5 F 11/29/24 20:24 Pulse Rate 90 11/29/24 20:24 Respiratory Rate 20 11/29/24 20:24 Blood Pressure 148/80 H 11/29/24 20:24 Pulse Oximetry 95 11/29/24 20:24 Oxygen Delivery Method Room Air 11/29/24 20:24 Course Orders Ordered: ED Orders 11/29/24 20:30 US scrotum Stat 11/29/24 22:38 XR chest 1V Stat EKG-12 Lead Stat 11/29/24 22:58 Complete Blood Count AUTO DIFF Stat Comprehensive Metabolic Panel Stat Lipase Stat Troponin & CK Cardiac Panel Stat 11/29/24 23:33 BNP [NT-proBNP (BNP-Adult 18+)] Stat Urine Microscopic Stat Discontinued Medications Furosemide (Furosemide 40 Mg/4 Ml Vial) 40 mg IV NOW ONE Stop: 11/29/24 22:40 Last Admin: 11/29/24 23:07 Dose: 40 mg Documented By: ELIZABETH Vital Signs Vital signs: Vital Signs - 8 hr 11/29/24 20:24 11/29/24 22:13 11/29/24 22:16 Temperature 98.5 F Pulse Rate 90 86 85 Respiratory Rate 20 16 Blood Pressure 148/80 H Pulse Oximetry 95 93 Oxygen Delivery Method Room Air Room Air Oxygen Flow Rate 11/29/24 22:16 11/29/24 22:30 03/10/25 22:30 Temperature Pulse Rate 81 Respiratory Rate 14 Blood Pressure 149/77 H 134/72 Pulse Oximetry 91 Oxygen Delivery Method Room Air Oxygen Flow Rate 11/29/24 23:00 11/29/24 23:00 11/29/24 23:30 Temperature Pulse Rate 85 88 Respiratory Rate 15 23 Blood Pressure 138/86 Pulse Oximetry 93 94 Oxygen Delivery Method Nasal Cannula Nasal Cannula Oxygen Flow Rate 2 MDM - Male Genitourinary Lab Data 11/29/24 22:58 11/29/24 22:58 Labs: Lab Results 11/29/24 11/29/24 11/29/24 Range/Units 22:39 22:58 23:33 WBC 6.0 (4.5-11.0) X10^3/uL RBC 3.78 L (4.5-5.9) X10^6/uL Hgb 12.2 L (13.5-17.5) g/dL Hct 35.1 L (41-53) % MCV 92.9 (80-100) fL MCH 32.1 (26-34) PG MCHC 34.6 (30-36) % RDW 14.2 (11.6-14.8) % Plt Count 247 (150-400) X10^3/uL Neut % (Auto) 79.4 H (50-75) % Lymph % (Auto) 8.5 L (25-40) % Weston % (Auto) 10.4 (3-14) % Eos % (Auto) 1.0 L (2-4) % Baso % (Auto) 0.7 (0-2) % Neut # (Auto) 4800 (0565-0602) /uL Lymph # (Auto) 500 L (4873-3718) /uL Weston # (Auto) 600 (0-900) /uL Eos # (Auto) 100 (0-450) /uL Baso # (Auto) 0 (0-100) /uL Sodium 120 L (137-145) mmol/L Potassium 4.2 (3.4-5.1) mmol/L Chloride 82 L (98-107) mmol/L Carbon Dioxide 26 (22-32) mmol/L BUN 17 (9-20) mg/dL Creatinine 0.92 (0.66-1.25) mg/dL Estimated GFR > 60 (>60) mL/min BUN/Creatinine Ratio 18.5 (6-22) Glucose 98 (80-110) mg/dL Calcium 8.9 (8.4-10.2) mg/dL Total Bilirubin 0.7 (0.2-1.3) mg/dL AST 59 (17-59) IU/L ALT 28 (<50) IU/L Alkaline Phosphatase 91 (38-126) U/L Total Creatine Kinase 430 H (55-170) U/L Troponin I < 0.012 (0.01-0.034) ng/mL NT-Pro-B Natriuret Pep 883 H (<450) pg/mL Total Protein 7.2 (6.3-8.2) g/dL Albumin 4.4 (3.5-5.0) g/dL Globulin 2.8 (1.7-4.1) g/dL Albumin/Globulin Ratio 1.6 (1.0-2.8) Lipase 122 (23-300) U/L Urine RBC None seen (0-5/HPF) Urine WBC None seen (0-5/HPF) Ur Squamous Epith Cells None seen (0-5/HPF) Urine Bacteria None seen (None) Ur Culture Indicated? Cult not indicated Vol Urine Centrifuged 10ml (spun) Urine Dip Bedside Urine Glucose Negative Bedside Urine Bilirubin - Negative Bedside Urine Ketone ++ 40 Urine Specific Chana 1.015 Bedside Urine Occult Blood - Negative Bedside Urine pH 6.0 Bedside Urine Protein + 30 Bedside Urine Urobilinogen - Negative Bedside Urine Nitrite - Negative Bedside Urine Leukocytes - Negative Esterase ECG Data Attestation: I personally reviewed and interpreted this ECG as follows: Prior ECG tracings: available for review Interpretation: Rate of 76, QRS 82 QTC of 447, HL rhythm, no acute ST elevation or depression. Patient has prior from a 03/23/2021 which shows sinus rhythm. MDM Narrative Medical decision making narrative: 84-year-old male who presents with complaint of testicular swelling he notes right initially in triage but on evaluation is really bilateral. Patient has bilateral lower extremity edema that looks like it is tracking up the words into the scrotum. To sound fits with this exam I do not see any signs of infection. Patient notes that he did have some blood pressure medication changes recently although he was not sure exactly what was changed he thinks he is still taking a diuretic he does have a history of nephrectomy and chronic kidney disease. Labs EKG and chest x-ray obtained to evaluate for worsening CHF for renal dysfunction. Patient's O2 has been about 89-90%. EKG rate of 76, P waves are not clearly with the every QRS unclear rhythm, no acute ST changes appreciated Chest x-ray, moderate interstitial prominence may represent edema differential includes infection, low lung volumes heart size is upper limit of normal degenerative osseous changes probable Lab show white count of 6 hemoglobin 12.2 was 14 in September, platelets of 247. Patient's sodium is 120 difficulty patient has been 130s 127, chloride 82 potassium is 4.2 with a CO2 of 26 BUN 17 creatinine 0.92 LFTs are otherwise negative total CK is 430, troponins less than 0.012 with a lipase of 122, BNP 883. Scrotal ultrasound shows diffuse scrotal wall thickening, small left hydrocele no acute torsion. Point of care urine positive for ketones, protein, urine micro is negative. Patient received Lasix. Patient's O2 sat has been 89-90% was placed on 2 L nasal cannula. Spoke with Dr. Solorzano at 1232 accepts for inpatient for bilateral lower extremity and scrotal edema likely secondary to CHF and hyponatremia. Discharge Plan Departure Patient Disposition: Admitted As Inpatient Clinical Impression: Congestive heart failure (CHF), Edema of scrotum, Hyponatremia Admit Date/Time: 11/30/24 00:39 Admit Provider: Stoney Solorzano
--- NOTE | 2024-11-29 22:38 | DI.RAD.S_ITS ---
PROCEDURE: XR CHEST 1V INDICATIONS: edema, chf TECHNIQUE: One view of the chest was acquired. COMPARISON: [facility], CR, XR CHEST 1V, 03/23/2021, 16:28. FINDINGS AND IMPRESSION: Low lung volumes. Moderate interstitial prominence may represent edema, differential includes infection. Consider future imaging surveillance to assess for resolution. Heart size is at the upper limit of normal. Degenerative osseous changes. Probable old left distal clavicle deformity. Dictated by: Samuel Dawson M.D. on 11/29/2024 at 23:05 Approved by: Samuel Dawson M.D. on 11/29/2024 at 23:06
--- NOTE | 2024-11-29 23:03 | EKG_ITS ---
[place] [id number] [place] [id number] Test Date: 2024-11-29 Pat Name: Chicho Will Department: [facility] Room: Gender: Male Delivery And Mail Sorter: NURIS HALEY : 1940 Requested By: Order Number: [id number] Reading MD: Hipolito Altamirano Measurements Intervals [place] Rate: 76 P: UT: QRS: 51 QRSD: 82 T: 49 QT: 398 QTc: 447 Interpretive Statements Undetermined rhythm Low voltage QRS Cannot rule out Anteroseptal infarct , age undetermined Electronically Signed On 11-30-2024 14:35:53 PDT by Hipolito Altamirano
[2024-11-29] MEDS: FUROSEMIDE 40 MG/4 ML VIAL IV (23:07)
[2024-11-29 23:09] LABS: Add Manual Diff / Slide Review NO; Basophils Absolute Auto 0 /uL (0-100); Basophils Percent Auto 0.7 % (0-2); Eosinophils Absolute Auto 100 /uL (0-450); Hematocrit 35.1 % (41-53); Hemoglobin 12.2 g/dL (13.5-17.5); Lymphocytes Absolute Auto 500 /uL (1100-4500); Lymphocytes Percent Auto 8.5 % (25-40); Mean Corpuscular HGB Conc 34.6 % (30-36); Mean Corpuscular Hemoglobin 32.1 PG (26-34); Mean Corpuscular Volume 92.9 fL (80-100); Monocytes Absolute Auto 600 /uL (0-900); Monocytes Percent Auto 10.4 % (3-14); Neutrophils Absolute Auto 4800 /uL (1500-7000); Neutrophils Percent Auto 79.4 % (50-75); Platelet Count 247 X10^3/uL (150-400); Red Blood Cell Count 3.78 X10^6/uL (4.5-5.9); Red Cell Distribution Width 14.2 % (11.6-14.8)
[2024-11-29 23:21] LABS: Alanine Aminotransferase 28 IU/L (<50); Albumin 4.4 g/dL (3.5-5.0); Albumin Globulin Ratio 1.6 (1.0-2.8); Alkaline Phosphatase 91 U/L (38-126); Aspartate Aminotransferase 59 IU/L (17-59); BUN Creatinine Ratio 18.5 (6-22); Bilirubin Total 0.7 mg/dL (0.2-1.3); Blood Urea Nitrogen 17 mg/dL (9-20); Calcium 8.9 mg/dL (8.4-10.2); Carbon Dioxide 26 mmol/L (22-32); Chloride 82 mmol/L (98-107); Creatine Kinase 430 U/L (55-170); Estimated Glomerular Filt Rate > 60 mL/min (>60); Globulin 2.8 g/dL (1.7-4.1); Glucose 98 mg/dL (80-110); HEMOLYSIS < 15 (0-50); Lipase 122 U/L (23-300); Potassium 4.2 mmol/L (3.4-5.1); Sodium 120 mmol/L (137-145); Total Protein 7.2 g/dL (6.3-8.2)
[2024-11-29 23:32] LABS: Troponin I < 0.012 ng/mL (0.01-0.034)
[2024-11-29 23:54] LABS: Bacteria Urine None Seen; Culture Indicated Urine Cult Not Indicated; RBC Urine None Seen (0-5/HPF); Squamous Epithelial Cell Urine None Seen (0-5/HPF); Urine Volume 10mL (spun); WBC Urine None Seen (0-5/HPF)
[2024-11-30] VITALS (14 sets, daily range): BP systolic 114–136; BP diastolic 60–73; PULSE 74–87; RESP 12–20; TEMP 35.8–36.4; O2SAT 90–98; BMI 29.2
[2024-11-30 00:23] LABS: NT-proBNP (BNP-Adult 18+) 883 pg/mL (<450)
--- NOTE | 2024-11-30 00:51 | DI.ECHO.S_ITS ---
[facility] : : [address] : : [place] : : [id number] : : Phone: [phone] Echocardiogram Report + + :Name: JASON GONZALEZ Study Date: 11/30/2024 Height: 71 in : :[facility] ReadingLocation: Weight: 210 lb : : Gender: Male BSA: 2.2 m2 : :: 1940 Age: 84 yrs BP: 129/73 mmHg: :Reason For Study: CONGESTIVE HEART FAILURE : :Ordering Physician: JANEL, : :TRUDY Performed By: Fabiola Alvarenga : :Referring: TRUDY ISLAS : + + Interpretation Summary Limited study. Rhythm is not clear. Possible atrial rhythm with PACs as well as some isolated PVCs. Correlate clinically with twelve-leads EKG. The left ventricle is normal in size and wall thickness. The left ventricular ejection fraction is normal. The ejection fraction is estimated to be 60-65%. Previous LVEF 55 to 60%. No obvious regional wall motion abnormalities. Mild LV dyssynchrony. The right ventricle is mildly dilated. The right ventricular systolic function is normal. The tricuspid valve leaflets are thin and pliable. There is mild to moderate tricuspid regurgitation. Previously mild TR The right ventricular systolic pressure is estimated to be at least 38 mmHg based on an estimated right atrial pressure of 8 mm Hg. Procedure: A two-dimensional transthoracic echocardiogram with color flow and Doppler was performed in limited views only to assess congestive heart failure.. The study quality was technically adequate. Comparison is made with the echocardiogram of 04/05/2021. A contrast injection of Definity was performed to improve assessment of LV function. Rhythm is not clear. Possible atrial rhythm with PACs as well as some isolated PVCs. Correlate clinically with twelve-lead EKG. Left Ventricle: The left ventricle is normal in size and wall thickness. There is no thrombus. The ejection fraction is estimated to be 60-65%. The left ventricular ejection fraction is normal. No obvious regional wall motion abnormalities. Mild LV dyssynchrony. Right Ventricle: The right ventricle is mildly dilated. The right ventricular systolic function is normal. Atria: The right atrium is moderately dilated. Tricuspid Valve: The tricuspid valve leaflets are thin and pliable. There is mild to moderate tricuspid regurgitation. The right ventricular systolic pressure is estimated to be at least 38 mmHg based on an estimated right atrial pressure of 8 mm Hg. Great Vessels: The IVC is dilated (diameter is greater than 2.1 cm) yet it collapses greater than 50% with a sniff. This suggests a right atrial pressure of 8 mm Hg. Pericardium/ Pleura There is no pericardial effusion. There is a small left- sided pleural effusion. MMode/2D Measurements & Calculations LVIDd: 4.8 cm LA A4 area: 25.0 cm2 LVIDs: 3.3 cm LA length (vol): 5.9 cm FS: 30.5 % IVSd: 0.80 cm LVPWd: 0.91 cm LV mulligan. diameter/BSA (cm/m^2): 2.2 LV sys. diameter/BSA (cm/m^2): 1.5 RA long axis: 5.5 cm RVD1 (basal): 4.2 cm RA area: 24.9 cm2 RVD2 (mid): 3.5 cm RA vol: 95.5 ml TAPSE: 2.0 cm RA : 44.3 ml/m2 IVC diam: 3.6 cm Doppler Measurements & Calculations TR max jie: 273.0 cm/sec TR max P.8 mmHg Reading Physician:09:03 AM
--- NOTE | 2024-11-30 01:00 | PC.NURSE ---
Pt was incontinent of urine all over the room floor. States he couldn't make it to the bathroom . Patient was givien urinal to finish emptying of bladder. Pt stood in the room with this nurse and he asked to be given some privacy. This nurse stepped out for 2 minutes and when she came back, pt was standing at the wall staring, then he said I forgot where I am. This nurse reoriented and cleaned pt up and sat up in his gurney with room open to view at nurses station.
[2024-11-30] MEDS: MELATONIN 3 MG TABLET 9 MG PO ×2 (02:03→21:56)
[2024-11-30 05:48] LABS: Add Manual Diff / Slide Review NO; Basophils Absolute Auto 0 /uL (0-100); Basophils Percent Auto 0.6 % (0-2); Eosinophils Absolute Auto 100 /uL (0-450); Eosinophils Percent Auto 1.9 % (2-4); Hematocrit 34.4 % (41-53); Hemoglobin 11.6 g/dL (13.5-17.5); Lymphocytes Absolute Auto 600 /uL (1100-4500); Lymphocytes Percent Auto 12.1 % (25-40); Mean Corpuscular HGB Conc 33.7 % (30-36); Mean Corpuscular Hemoglobin 31.7 PG (26-34); Mean Corpuscular Volume 93.8 fL (80-100); Monocytes Absolute Auto 700 /uL (0-900); Neutrophils Absolute Auto 3400 /uL (1500-7000); Neutrophils Percent Auto 70.4 % (50-75); Platelet Count 235 X10^3/uL (150-400); Red Blood Cell Count 3.66 X10^6/uL (4.5-5.9); Red Cell Distribution Width 13.8 % (11.6-14.8); White Blood Cell Count 4.9 X10^3/uL (4.5-11.0)
[2024-11-30 06:05] LABS: Alanine Aminotransferase 26 IU/L (<50); Albumin Globulin Ratio 1.4 (1.0-2.8); Alkaline Phosphatase 90 U/L (38-126); Aspartate Aminotransferase 58 IU/L (17-59); BUN Creatinine Ratio 17.7 (6-22); Bilirubin Total 0.8 mg/dL (0.2-1.3); Blood Urea Nitrogen 17 mg/dL (9-20); Calcium 8.7 mg/dL (8.4-10.2); Carbon Dioxide 28 mmol/L (22-32); Chloride 81 mmol/L (98-107); Estimated Glomerular Filt Rate > 60 mL/min (>60); Globulin 2.8 g/dL (1.7-4.1); Glucose 88 mg/dL (80-110); HEMOLYSIS < 15 (0-50); Sodium 120 mmol/L (137-145); Total Protein 6.8 g/dL (6.3-8.2)
[2024-11-30] MEDS: FUROSEMIDE 40 MG/4 ML VIAL IV ×4 (06:09→23:14)
--- NOTE | 2024-11-30 08:13 | DI.CT.S_ITS ---
PROCEDURE: CT CHEST ABD PEL W CON INDICATIONS: new onset chf with generalized edema hx of kidney cancer TECHNIQUE: After the administration of intravenous contrast, 5 mm thick sections acquired from the lung apices to the symphysis. 5 mm coronal and sagittal reformats were performed, with additional 7 mm MIP reformats through the lungs. For radiation dose reduction, the following was used: automated exposure control, adjustment of mA and/or kV according to patient size. COMPARISON: [facility], CT, CT CHEST ABD PEL W CON, 08/30/2019, 12:04. [facility], CT, CT CHEST ABD PEL W CON, 08/31/2018, 11:39. FINDINGS: Image quality: Excellent. Thyroid: Within normal limits. Cardiac: Heart size within normal limits. No pericardial effusion. Mild aortic valve and left anterior descending coronary artery calcifications. Aorta: Thoracic aortic diameter within normal limits. Pulmonary Artery: Main pulmonary artery diameter within normal limits. Lungs: No focal lung consolidation. Pleura: Small bilateral pleural effusions. No pneumothorax. Airways: The trachea and mainstem bronchi are patent. Lymph Nodes: No mediastinal, hilar, or axillary lymphadenopathy. Esophagus: Within normal limits. Peritoneum: No pneumoperitoneum or ascites. Bones: No acute osseous abnormality. Median sternotomy wires. Liver: Normal in size and contour. Hepatic steatosis. Gallbladder: No stones or pericholecystic fluid. Biliary tree: No intrahepatic or extrahepatic biliary ductal dilatation. Pancreas: Within normal limits. Spleen: Normal in size and contour. Kidneys: Status post right total nephrectomy with possible adrenalectomy. No hydronephrosis or obstructive urolithiasis. Adrenals: No adrenal nodularity. Bladder: Normal in size and wall thickness. : No acute abnormality. Stomach: Normal in size and contour. Bowel: Normal in diameter without any bowel obstruction. Appendix within normal limits (2/140). Colonic diverticulosis. Lymph Nodes: No retroperitoneal, mesenteric, or inguinal lymphadenopathy. Vascular: No abdominal aortic aneurysm. The visualized arterial vasculature is patent. Soft Tissues: Mild anasarca along the bilateral flank regions. IMPRESSION: 1. Small bilateral pleural effusions. 2. Hepatic steatosis. 3. Status post right nephrectomy without nodular recurrence at the postsurgical bed. 4. No other acute CT abnormality of the chest/abdomen/pelvis. Dictated by: Catalino Hsieh M.D. on 11/30/2024 at 10:25 Approved by: Catalino Hsieh M.D. on 11/30/2024 at 10:44
--- NOTE | 2024-11-30 08:19 | PM.HP.IH.1 ---
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 Patient lives at home independently. Patient states over the last few days his blood pressures been quite high. He has also had some increase in swelling in his lower extremities and also in his testicular area. He became concerned yesterday and presented to the emergency department. Patient in the emergency department had laboratory testing blood pressure checks and an ultrasound done. Patient over the past few weeks. Says he is ambulating well. No weakness in his hands and feet. No difficulty with balance or coordination. Patient has no complaints of chest pain. He says he has not been short of breath. But in the emergency department his O2 saturations were low. He has not known to be on chronic oxygen therapy. In the emergency department patient had blood pressure testing which his blood pressure was mildly elevated to moderately elevated. His sodium was quite low. His other electrolytes look normal his kidney function was stable. Chest x-ray shows pulmonary haziness consistent with fluid. Patient has a elevated BNP. Patient's EKG shows no acute ST or T-wave changes. Because of patient's hyponatremia significant edema elevation of blood pressure and requiring oxygenation it was felt patient was a candidate for admission to the hospital. On my evaluation this poor morning patient is asleep in the bed he is easily arousable. He has a good historian. 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) Status post nephrectomy (02/02/15) Neoplasm of kidney (12/01/14) Hyperlipidemia (02/27/11) Essential hypertension (02/27/11) Surgical History History of kidney removal Anesthesia Surgical procedure planned (~09/2014) History of nephrectomy (11/25/14) Social History marital status: household members: none Smoking Status: Never smoker alcohol intake: current substance use type: does not use Meds Home Medications and Allergies Home Medications Medication Instructions Recorded Confirmed Type cyclosporine 0.05 % eye drops in a 1 drp OPHTH BID ##0 07/12/16 11/30/24 History dropperette (Restasis) aspirin 81 mg tablet,delayed 81 mg PO QDAY #90 tabs 10/07/17 11/30/24 Rx release sodium chloride 1 gram tablet 1 gm PO DAILY ##0 01/13/18 11/30/24 History melatonin 5 mg tablet 5 mg PO BEDTIME PRN Insomnia 02/10/19 11/30/24 History ferrous sulfate 325 mg (65 mg 325 mg PO DAILY #30 tabs 06/02/20 11/30/24 Rx iron) tablet sennosides 8.6 mg tablet (senna) 8.6 mg PO BID #30 tabs 12/05/20 11/30/24 Rx amlodipine 5 mg tablet 5 mg PO DAILY #90 tabs 04/29/24 11/30/24 Rx lisinopril 40 mg tablet 40 mg PO DAILY #90 tabs 05/27/24 11/30/24 Rx mirtazapine 30 mg tablet 30 mg PO ONCE PM #90 tabs 08/25/24 11/30/24 Rx rosuvastatin 10 mg tablet 10 mg PO DAILY #90 tabs 10/07/24 11/30/24 Rx doxepin 10 mg capsule 10 mg PO DAILY 11/30/24 11/30/24 History furosemide 40 mg tablet 40 mg DAILY 11/30/24 11/30/24 History hydrochlorothiazide 25 mg tablet 25 mg PO DAILY 11/30/24 11/30/24 History Allergies Allergy/AdvReac Type Severity Reaction Status Date / Time No Known Drug Allergies Allergy Verified 09/28/24 10:41 Exam Vital Signs (past 8 hours): - 11/30/24 00:30 11/30/24 00:30 11/30/24 01:00 Temperature Pulse Rate 80 86 Respiratory Rate 13 13 Blood Pressure 114/68 Pulse Oximetry 94 94 Oxygen Delivery Method Nasal Cannula Nasal Cannula Oxygen Flow Rate 2 2 Fraction of Inspired Oxygen 11/30/24 01:25 11/30/24 01:49 11/30/24 01:55 Temperature 96.7 F L Pulse Rate 85 Respiratory Rate 20 Blood Pressure 135/73 Pulse Oximetry 93 Oxygen Delivery Method Nasal Cannula Nasal Cannula Oxygen Flow Rate 2 2 Fraction of Inspired Oxygen 11/30/24 04:00 11/30/24 04:35 11/30/24 05:00 Temperature 96.8 F L Pulse Rate 83 Respiratory Rate 12 Blood Pressure 129/73 Pulse Oximetry 96 96 Oxygen Delivery Method Nasal Cannula Nasal Cannula Oxygen Flow Rate 2.5 2 2 Fraction of Inspired Oxygen 28 11/30/24 08:00 Temperature 96.6 F L Pulse Rate 87 Respiratory Rate 16 Blood Pressure 117/67 Pulse Oximetry 95 Oxygen Delivery Method Oxygen Flow Rate 2.5 Fraction of Inspired Oxygen Fraction of Inspired Oxygen 28 Oxygen Delivery Method Nasal Cannula Oxygen Flow Rate 2.5 Narrative Exam Narrative: Gen.: Asleep easily arousable and good historian HEENT: Pupils equal round and reactive to light oral mucosa is moist. Patient has some mild right-sided facial drooping. Cardio: S1-S2 regular rate and rhythm slight systolic murmur appreciated Respiratory: Lungs are rhonchorous breath sounds with wheezes in both lung lou. Abdomen: Soft distended abdomen no rebound or guarding. Extremities: 2 to 3+ edema up to thigh area. Neurologic: Right-sided facial drooping compared to left. Symmetrical strength in upper and lower extremities Objective Labs 11/30/24 05:09 11/30/24 05:09 Labs: Laboratory Results - last 24 hr 11/29/24 11/29/24 11/29/24 22:39 22:58 23:33 WBC 6.0 RBC 3.78 L Hgb 12.2 L Hct 35.1 L MCV 92.9 MCH 32.1 MCHC 34.6 RDW 14.2 Plt Count 247 Neut % (Auto) 79.4 H Lymph % (Auto) 8.5 L Trigg % (Auto) 10.4 Eos % (Auto) 1.0 L Baso % (Auto) 0.7 Neut # (Auto) 4800 Lymph # (Auto) 500 L Trigg # (Auto) 600 Eos # (Auto) 100 Baso # (Auto) 0 Sodium 120 L Potassium 4.2 Chloride 82 L Carbon Dioxide 26 BUN 17 Creatinine 0.92 Estimated GFR > 60 BUN/Creatinine Ratio 18.5 Glucose 98 Calcium 8.9 Total Bilirubin 0.7 AST 59 ALT 28 Alkaline Phosphatase 91 Total Creatine Kinase 430 H Troponin I < 0.012 NT-Pro-B Natriuret Pep 883 H Total Protein 7.2 Albumin 4.4 Globulin 2.8 Albumin/Globulin Ratio 1.6 Lipase 122 Urine RBC None seen Urine WBC None seen Ur Squamous Epith Cells None seen Urine Bacteria None seen Ur Culture Indicated? Cult not indicated Vol Urine Centrifuged 10ml (spun) 11/30/24 05:09 WBC 4.9 RBC 3.66 L Hgb 11.6 L Hct 34.4 L MCV 93.8 MCH 31.7 MCHC 33.7 RDW 13.8 Plt Count 235 Neut % (Auto) 70.4 Lymph % (Auto) 12.1 L Trigg % (Auto) 15.0 H Eos % (Auto) 1.9 L Baso % (Auto) 0.6 Neut # (Auto) 3400 Lymph # (Auto) 600 L Trigg # (Auto) 700 Eos # (Auto) 100 Baso # (Auto) 0 Sodium 120 L Potassium 4.0 Chloride 81 L Carbon Dioxide 28 BUN 17 Creatinine 0.96 Estimated GFR > 60 BUN/Creatinine Ratio 17.7 Glucose 88 Calcium 8.7 Total Bilirubin 0.8 AST 58 ALT 26 Alkaline Phosphatase 90 Total Creatine Kinase Troponin I NT-Pro-B Natriuret Pep Total Protein 6.8 Albumin 4.0 Globulin 2.8 Albumin/Globulin Ratio 1.4 Lipase Urine RBC Urine WBC Ur Squamous Epith Cells Urine Bacteria Ur Culture Indicated? Vol Urine Centrifuged Assessment & Plan Assessment and plan (1) Hyponatremia: Status: Acute (2) Congestive heart failure (CHF): Qualifiers: Heart failure type: unspecified Heart failure chronicity: acute Qualified Code(s): I50.9 - Heart failure, unspecified Status: Acute Plan Acute congestive heart failure unspecified type. Patient has elevated BNP generalized edema in lower extremities up to his scrotum. Signs of pulmonary congestion on chest x-ray. Patient also has hyponatremia. Patient's previous echocardiogram was 2-3 years ago which showed preserved ejection fraction. I would like to put patient on Lasix 40 mg IV q.6 hours. With potassium replacement. We will monitor urinary output. And electrolytes and kidney function. We will repeat an echocardiogram to look at ejection fraction. He will have free water restriction. Acute respiratory failure. Patient with hypoxic requiring oxygen. Patient has signs of pulmonary vascular congestion consistent with acute fluid overload. Will continue with IV Lasix oxygen. Monitor oxygen status. Currently he is saturating fine with the 2 L nasal cannula and this will be continued. Will monitor closely for desaturations as well as worsening of respiratory failure and status. Hopefully this will improve as we work on diuresis. Hyponatremia. Patient with a sodium of 120. Patient has general mild hyponatremia but this is significantly worsened. Will provide fluid restriction. I think the contributing cause to his hyponatremia is delusional due to congestive heart failure. We will work on diuresis with Lasix. Hopefully will have improvement of sodium as we remove some of the extra free water. 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 Patient has some generalized edema to his lower extremity up into his hips and scrotal area. It has been a few years since he has had a re-evaluation for these cancers tumors. I am concerned about the significant amount of edema that there might be an intra-abdominal process going on as well so we will order a CT scan of chest abdomen and pelvis. Hypertension. Patient with high hypertension. He is normally on lisinopril amlodipine hydrochlorothiazide and does take Lasix as needed for edema. We will continue with his current home blood pressure medication and monitor his blood pressure closely. Hyperlipidemia. Patient will be continued on his Crestor 10 mg a day. Generalized anxiety disorder. Patient on mirtazapine this mirtazapine will be continued while he is here in the hospital stay. DVT prophylaxis with Lovenox. Will continue patient's senna for constipation. He will be given melatonin at night to help with sleep. Patient will meet inpatient criteria as he will need to be here for multiple nights for diuresis improvement of his oxygen status and further evaluation and workup. Time-Based Coding :: [TOTAL MINUTES] spent with patient and on the chart (including review of chart, obtaining history, exam, reviewing outside data, placing orders, documenting exam and treatment plan, and counseling patient) on [DATE]. PROFEE Gyroscopic Engineering Technician Document charge(s): Yes Charge Codes Initial inpatient/observation care: [id number]
[2024-11-30] MEDS: SENNOSIDES 8.6 MG TABLET PO (09:38)
[2024-11-30] MEDS: AMLODIPINE 5 MG TABLET PO (09:38)
[2024-11-30] MEDS: lisinopriL 20 MG TABLET 40 MG PO (09:38)
[2024-11-30] MEDS: ENOXAPARIN 40 MG/0.4 ML SYRINGE SUBCUT (09:39)
--- NOTE | 2024-11-30 11:15 | DIET.CONS ---
Addendum entered by Alina Johnston 11/30/24 16:13: Followed up with pt in afternoon to discuss fluid restriction. Additionally, pt reports usual intake 3 meals per day, provided example of content i.e [employer] prepped dinners and reports normal appetite/no recent changes. Original Note: Dietary Consultation Note Admission Date: 11/30/2024 00:39 Assessment: 84 y M admitted for hyponatremia, edema, acute resp failure. Dietitian consulted for 1500 mL fluid restriction CHF+hyponatremia. Changed diet order to fluid restriction per MD consult. Attempted visit w/ pt, sleeping soundly, will check back again later today. Ht: 180.34 cm Wt: 111 kg BMI: 29.2 UBW: 104.44 kg on 07/26/24 at PCP visit in which PCP notes trace lower extremity edema at visit. 103.079 kg on 05/27/24 Last BM: 11/29/24 (11/30/24 01:25) MNA: 12 Marc Score: 19 Diet: 11/30/24 Lunch Fluid Restriction Diet Diet Modifications: Fluid restriction 1500 mL Total fluid amount: 1,500 Amount allotted to patient trays: 300 Fluid in addition to trays: 2672-7268 amount: 900 8351-4901 amount: 600 Food Texture: Level 7 - Regular Liquid Consistency: Level 0 - Thin Labs: RBC 3.66 X10^6/uL (4.5-5.9) L 11/30/24 05:09 Hgb 11.6 g/dL (13.5-17.5) L 11/30/24 05:09 Hct 34.4 % (41-53) L 11/30/24 05:09 Creatinine 0.96 mg/dL (0.66-1.25) 11/30/24 05:09 NT-Pro-B Natriuret Pep 883 pg/mL (<450) H 11/29/24 22:39 Nutrition Diagnosis: Decreased nutrient need (fluids) r/t heart failure aeb edema/fluid retention Interventions: -Diet ordered adjusted to fluid restriction per MD consult EER: 1500 ml fluid restriction Monitoring/Evaluations: f/u with pt for educ Electronically Signed by: Alina Johnston 11/30/24 11:16 Clinical Dietitian [address] [id number]
--- NOTE | 2024-11-30 15:35 | CM.DANOTE ---
B DCP Assessment note pt is an 84yo M PMH of Clear cell adenocarcinoma of right kidney. admitted with CHF/acute resp failure/hyponatremia. PCP Rashad Payer Medicare and [employer]UE[facility] reviewed EMR. per chart, pt lives indep alone in [place]. No DME at baseline. no O2 at baseline but has been on 2ltrs-room air since admission. Per H&P, will continue to wean off O2, monitor sodium. on water restriction. per H&P, estimated pt will be admitted for a few days. Per RN, pt weaker than normal throughout day. could potentially benefit from PT? Could be a good candidate for HH? [facility] attempted to meet with pt multiple times throughout day, sleeping heavily. allowed to rest. P: anticipate pt will remain for a few days. f/u tomorrow if PT needed, r/o need for HH? CM team will continue to follow closely ANAY Hess Discharge Planning/Care Management CM Discharge Assessment Start: 11/30/24 15:29 Freq: Status: Active Protocol: Document 11/30/24 15:29 (Rec: 11/30/24 15:34 [id number]) Discharge Planning Assessment Assigned Lathe Machine Operator ANAY Mckeon DPOA/Assigned Designee Name leena Mazariegos Contact Information [phone] Advance Directives? Yes Advance Directives on File No History Provided By Patient,Medical Record Prior Living Arrangements House Household Members none Independent with ADL's Yes Is patient alert and oriented? Yes Discharge Plan Home Transportation Arrangement Pt will either drive his own vehicle in the parking lot or call his friend/neighbor for a ride Referrals Initiated None needed Review Status In Process Please Provide Date Initial DC 11/30/24 Assessment Was Performed Next Review Type Continued Stay Review
[2024-11-30] MEDS: POTASSIUM CHLORIDE 20 MEQ TAB PO (16:53)
[2024-11-30] MEDS: ATORVASTATIN 20 MG TABLET PO (21:56)
[2024-11-30] MEDS: MIRTAZAPINE 15 MG TABLET 30 MG PO (21:56)
[2024-12-01] VITALS (15 sets, daily range): BP systolic 93–132; BP diastolic 47–72; PULSE 64–89; RESP 14–19; TEMP 35.6–36.4; O2SAT 92–98
[2024-12-01 05:09] LABS: Add Manual Diff / Slide Review NO; Basophils Absolute Auto 0 /uL (0-100); Basophils Percent Auto 0.4 % (0-2); Eosinophils Absolute Auto 100 /uL (0-450); Eosinophils Percent Auto 1.6 % (2-4); Hematocrit 31.8 % (41-53); Hemoglobin 11.1 g/dL (13.5-17.5); Lymphocytes Absolute Auto 700 /uL (1100-4500); Lymphocytes Percent Auto 16.6 % (25-40); Mean Corpuscular HGB Conc 35.1 % (30-36); Mean Corpuscular Hemoglobin 32.7 PG (26-34); Mean Corpuscular Volume 93.1 fL (80-100); Monocytes Absolute Auto 600 /uL (0-900); Monocytes Percent Auto 14.8 % (3-14); Neutrophils Absolute Auto 2900 /uL (1500-7000); Neutrophils Percent Auto 66.6 % (50-75); Platelet Count 222 X10^3/uL (150-400); Red Blood Cell Count 3.41 X10^6/uL (4.5-5.9); White Blood Cell Count 4.3 X10^3/uL (4.5-11.0)
[2024-12-01 05:31] LABS: Alanine Aminotransferase 24 IU/L (<50); Albumin 3.6 g/dL (3.5-5.0); Albumin Globulin Ratio 1.4 (1.0-2.8); Alkaline Phosphatase 78 U/L (38-126); Aspartate Aminotransferase 48 IU/L (17-59); Bilirubin Total 0.6 mg/dL (0.2-1.3); Blood Urea Nitrogen 23 mg/dL (9-20); Calcium 8.6 mg/dL (8.4-10.2); Carbon Dioxide 31 mmol/L (22-32); Chloride 83 mmol/L (98-107); Estimated Glomerular Filt Rate 52 mL/min (>60); Globulin 2.6 g/dL (1.7-4.1); Glucose 113 mg/dL (80-110); HEMOLYSIS < 15 (0-50); Potassium 3.5 mmol/L (3.4-5.1); Sodium 122 mmol/L (137-145); Total Protein 6.2 g/dL (6.3-8.2)
[2024-12-01] MEDS: FUROSEMIDE 40 MG/4 ML VIAL IV ×3 (05:47→21:51)
--- NOTE | 2024-12-01 08:20 | P.PN_ITS ---
Subjective Subjective Date Patient Seen: 12/01/24 Time Patient Seen: 11:13 Interval history: Patient seen this morning. Discussed care with nurse today. Patient having some episodes of impulsivity. Some mild confusion overnight. Patient has some baseline mild cognitive changes. Certainly has been worse since he has been in the hospital. Bowel movement okay. Lots of urination. Getting IV diuresis vital signs are stable overnight still some mild hypoxia on O2 which he has not normally at home. Needs assistance with getting up to the bathroom. Patient is alert to person place not day of week. Says swelling of the scrotum has improved. Still having some lower extremity swelling. He feels like his breathing is just fine. Although he has audible expiratory wheezes with increased work of breathing. Exam Vital Signs (past 8 hours): - 12/01/24 01:00 12/01/24 01:40 12/01/24 05:00 Temperature 97.3 F L Pulse Rate 89 68 Respiratory Rate 18 18 Blood Pressure 120/69 108/49 L Pulse Oximetry 98 93 Oxygen Delivery Method Nasal Cannula Oxygen Flow Rate 2 2 12/01/24 05:00 12/01/24 05:52 12/01/24 07:47 Temperature Pulse Rate Respiratory Rate Blood Pressure 132/50 L Pulse Oximetry 93 Oxygen Delivery Method Nasal Cannula Nasal Cannula Oxygen Flow Rate 2 Fraction of Inspired Oxygen 28 Oxygen Delivery Method Nasal Cannula Oxygen Flow Rate 2 Narrative Exam Narrative: General patient is alert oriented to place not date HEENT pupils equal round and reactive. Patient has some mild facial drooping. Oral mucosa is moist Cardio S1-S2 mild irregularity with mild systolic murmur Respiratory bilateral audible expiratory wheezes some crackles on respiratory exam with increased work of breathing. Abdomen soft distended no rebound or guarding no tenderness scrotal edema is improved Extremities 2+ edema in lower extremities Objective Labs 12/01/24 04:52 12/01/24 04:52 Labs: Laboratory Results - last 24 hr 12/01/24 04:52 WBC 4.3 L RBC 3.41 L Hgb 11.1 L Hct 31.8 L MCV 93.1 MCH 32.7 MCHC 35.1 RDW 14.0 Plt Count 222 Neut % (Auto) 66.6 Lymph % (Auto) 16.6 L Sierra % (Auto) 14.8 H Eos % (Auto) 1.6 L Baso % (Auto) 0.4 Neut # (Auto) 2900 Lymph # (Auto) 700 L Sierra # (Auto) 600 Eos # (Auto) 100 Baso # (Auto) 0 Sodium 122 L Potassium 3.5 Chloride 83 L Carbon Dioxide 31 BUN 23 H Creatinine 1.35 H Estimated GFR 52 L BUN/Creatinine Ratio 17.0 Glucose 113 H Calcium 8.6 Total Bilirubin 0.6 AST 48 ALT 24 Alkaline Phosphatase 78 Total Protein 6.2 L Albumin 3.6 Globulin 2.6 Albumin/Globulin Ratio 1.4 [facility] Medical History Melanoma 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 Hyponatremia TIA (transient ischemic attack) Scoliosis (~09/2014) Rosacea Mumps Measles Chicken pox Tinnitus Hearing loss Cataract (~09/2012) Kidney disease (~12/2014) Peripheral vascular disease (~12/2014) Hypertension Melanoma (~09/2014) Diverticulosis of large intestine without hemorrhage (01/13/18) Anxiety (06/26/17) 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) Status post nephrectomy (02/02/15) Neoplasm of kidney (12/01/14) Hyperlipidemia (02/27/11) Essential hypertension (02/27/11) Surgical History History of kidney removal Anesthesia Surgical procedure planned (~09/2014) History of nephrectomy (11/25/14) Social History marital status: household members: none Smoking Status: Never smoker alcohol intake: current substance use type: does not use Assessment & Plan Assessment and plan (1) Congestive heart failure (CHF): Qualifiers: Heart failure chronicity: acute Heart failure type: unspecified Qualified Code(s): I50.9 - Heart failure, unspecified Status: Acute Plan Acute congestive heart failure diastolic. Echocardiogram was done. Patient has normal ejection fraction. No significant valvular heart disease. Patient has signs symptoms x-ray findings consistent with fluid overload. Patient will be continued with diuresis of IV Lasix today we will decreased from 4 times a day to 3 times a day. He is still requiring intermittent oxygen especially when he ambulates. He has audible expiratory wheezes and crackles on lung exam and still 2 to 3+ lower extremity edema. Diuresis is helping for sure. He says he is going to the bathroom a lot. Initiate beta-darek today. Started 25 mg. Metabolic encephalopathy. Patient with mild confusion. Possibly due to hospitalization baseline cognitive decline hyponatremia and respiratory failure. Reviewed through medications today. We will continue to redirect. Patient is much better during the daytime than at night. No medication needed for restlessness or agitation at this point. Right-sided facial muscle weakness. With confusion. MRI stroke protocol of the brain was ordered today because of changes in mental status. I would like to rule out underlying cerebrovascular accident or injury. I am assuming it is probably due to his hyponatremia hospitalization etc. but want to rule out any underlying lesion. Acute respiratory failure. Patient oxygenating better with diuresis. When he is at rest his O2 levels look pretty good. It is now with ambulation that his oxygen level drops for a short period of time. Will continue with diuresis and oxygen as needed and gradually hopefully we can remove this barrier and he will not need oxygen at home. Hyponatremia. Sodium improved. At 1:22 a.m.. Continue with free water restriction. IV diuresis. We will check a magnesium. Will monitor closely his electrolytes his kidney function shows mild increase of his creatinine but BUN is normal. 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 CT scan of chest abdomen and pelvis repeated yesterday. No concerning new lesions or findings at or reoccurrence of known history of cancers. Hypertension. P blood pressure is well controlled. We stopped his hydrochlorothiazide due to his hyponatremia we will continue to stopped that continue with lisinopril and adding beta-darek metoprolol today Hyperlipidemia. Patient will be continued on his Crestor 10 mg a day. Generalized anxiety disorder. Patient on mirtazapine this mirtazapine will be continued while he is here in the hospital stay. DVT prophylaxis with Lovenox. Will continue patient's senna for constipation. He will be given melatonin at night to help with sleep. Continue diuresis today MRI. Sodium still low patient is still requiring oxygen. Anticipate discharge 20/4 to 48 hours stable for home discharge with home health Time-Based Coding :: [TOTAL MINUTES] spent with patient and on the chart (including review of chart, obtaining history, exam, reviewing outside data, placing orders, documenting exam and treatment plan, and counseling patient) on [DATE]. PROFEE Bonding Machine Operator Document charge(s): Yes Charge Codes Subsequent inpatient/observation care: [id number]
[2024-12-01] MEDS: METOPROLOL ER 25 MG TABLET PO (09:28)
[2024-12-01] MEDS: lisinopriL 20 MG TABLET 40 MG PO (09:29)
[2024-12-01] MEDS: AMLODIPINE 5 MG TABLET PO (09:29)
[2024-12-01] MEDS: POTASSIUM CHLORIDE 20 MEQ TAB PO ×3 (09:29→17:54)
[2024-12-01] MEDS: ENOXAPARIN 40 MG/0.4 ML SYRINGE SUBCUT (09:29)
--- NOTE | 2024-12-01 09:37 | DI.MRI.S_ITS ---
PROCEDURE: MR HEAD/BRAIN WO CON INDICATIONS: Behavioral Changes TECHNIQUE: Noncontrast axial T1 spin echo, axial T2 fast spin echo, sagittal and axial FLAIR, coronal T2 fast spin echo, axial gradient echo, axial diffusion and ADC through the brain. COMPARISON: None. FINDINGS: Image quality: Moderate motion artifact CSF spaces: Basal cisterns are patent. Lateral ventricles are symmetric. Volume: Volume loss. Periventricular white matter signal abnormality most commonly seen with small vessel disease. These findings are moderate Brain: No acute diffusion restriction. No intracranial hematoma. No confluent area of parenchymal edema on FLAIR images. Craniofacial structures: Paranasal sinus mucous cysts and mucosal thickening. Mastoid effusions. IMPRESSION: No acute infarct or intracranial hemorrhage. No significant area of intraparenchymal edema. Moderate motion artifact. Paranasal sinus mucous cysts and mastoid effusions. Dictated by: Samuel Dawson M.D. on 12/01/2024 at 11:07 Approved by: Samuel Dawson M.D. on 12/01/2024 at 11:09
[2024-12-01] MEDS: LORazepam 2 MG/ML INJ 0.5 MG IV (09:58)
--- NOTE | 2024-12-01 16:18 | CM.DPNOTE ---
DCP Note FLAGMAN reviewed EMR Per chart review, sodium remains 122 throughout the day. remains on 2ltrs O2. Per provider, no need for PT at this time, ambulating at baseline. may benefit from Home health? potentially tomorrow, 12/02. FLAGMAN met with pt in room, introduced self and role. pt confirms living alone in [place], drives, and is indep at baseline. plans to drive self home. no hx of HH and does not want HH. reports everything is going well at home. I'm good I don't do naughty things. pt insistent that he needs to dc home tomorrow to gather the information needed for his taxes to meet with his CPA. does not have an appt with his CPA, just wants to work on gathering the information. It became apparent to this FLAGMAN throughout conversation that pt was confused as to why he remained admitted/the medical necessity for not discharging. assisted by RN to explain medical reasoning for admission, per RN, had this conversation many times with pt today/provider spent a long time with pt earlier reviewing low sodium/hypoxia concerns. Pt unable to remember those previous conversations. attempted to educate pt that low sodium can cause confusion. pt insistent that he is not confused, resistant to medical education from RN/this FLAGMAN. FLAGMAN left room when pt had to urgently use the bathroom, RN at bedside to assist. Per RN, pt incontinent of urine in bed. when that was pointed out to him, pt unable to recognize that the bed was wet. Per RN, pt more confused as the days go on (RN had pt for multiple days in a row). see RN note for more. P: anticipate dc home once off O2/sodium improves/mentation improves. if mentation does not improve, consider calling DPOA dtr for more support in DCP. Will continue to follow closely for pt's confusion/in case any DCP needs arise. ANAY Hess
--- NOTE | 2024-12-01 17:05 | PC.NURSE ---
Throughout the day the Pt has exhibited increased confusion. About once an hour, when we go in to check on him, Pt will ask why he is here. I have tried to explain to him the medical reasons such as low sodium, CHF exacerbation, and respiratory status. However, Pt states he feels fine and doesn't understand why he is here. Pt also kept asking for a suppository while he had an incontinent BM episode. Whenever I asked the Pt if his brief was clean, he said it was and when I checked, it was soaked through. It is clear the Pt is not at his baseline cognitively. I have serious concerns for his safety dicharging home at this time. My main concerns are ability to care for self, possible unknowing self harm, and unawareness of his acute health condition. I voiced my concerns to Dr. Solorzano, and to ANAY Mckeon.
[2024-12-01] MEDS: MIRTAZAPINE 15 MG TABLET 30 MG PO (21:51)
[2024-12-01] MEDS: ATORVASTATIN 20 MG TABLET PO (21:51)
[2024-12-01] MEDS: SENNOSIDES 8.6 MG TABLET PO (21:58)
[2024-12-02] VITALS (11 sets, daily range): BP systolic 97–132; BP diastolic 44–86; PULSE 50–86; RESP 16–19; TEMP 36–36.7; O2SAT 93–99
[2024-12-02 05:29] LABS: Add Manual Diff / Slide Review NO; Basophils Absolute Auto 0 /uL (0-100); Basophils Percent Auto 0.7 % (0-2); Eosinophils Absolute Auto 100 /uL (0-450); Eosinophils Percent Auto 2.8 % (2-4); Hematocrit 32.5 % (41-53); Hemoglobin 11.1 g/dL (13.5-17.5); Lymphocytes Absolute Auto 800 /uL (1100-4500); Lymphocytes Percent Auto 19.6 % (25-40); Mean Corpuscular HGB Conc 34.2 % (30-36); Mean Corpuscular Hemoglobin 32.5 PG (26-34); Mean Corpuscular Volume 95.1 fL (80-100); Monocytes Absolute Auto 800 /uL (0-900); Monocytes Percent Auto 18.5 % (3-14); Neutrophils Absolute Auto 2500 /uL (1500-7000); Neutrophils Percent Auto 58.4 % (50-75); Platelet Count 243 X10^3/uL (150-400); Red Blood Cell Count 3.42 X10^6/uL (4.5-5.9); Red Cell Distribution Width 14.1 % (11.6-14.8); White Blood Cell Count 4.3 X10^3/uL (4.5-11.0)
[2024-12-02 06:35] LABS: Alanine Aminotransferase 23 IU/L (<50); Albumin 3.6 g/dL (3.5-5.0); Albumin Globulin Ratio 1.3 (1.0-2.8); Alkaline Phosphatase 66 U/L (38-126); Aspartate Aminotransferase 46 IU/L (17-59); BUN Creatinine Ratio 18.3 (6-22); Bilirubin Total 0.5 mg/dL (0.2-1.3); Blood Urea Nitrogen 26 mg/dL (9-20); Calcium 8.6 mg/dL (8.4-10.2); Carbon Dioxide 31 mmol/L (22-32); Chloride 87 mmol/L (98-107); Estimated Glomerular Filt Rate 49 mL/min (>60); Globulin 2.8 g/dL (1.7-4.1); Glucose 108 mg/dL (80-110); HEMOLYSIS < 15 (0-50); Magnesium 1.3 mg/dL (1.6-2.3); Potassium 3.9 mmol/L (3.4-5.1); Sodium 123 mmol/L (137-145); Total Protein 6.4 g/dL (6.3-8.2)
[2024-12-02] MEDS: FUROSEMIDE 40 MG/4 ML VIAL IV (06:49)
--- NOTE | 2024-12-02 08:17 | PM.DS.IH.1 ---
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 Patient lives at home independently. Patient states over the last few days his blood pressures been quite high. He has also had some increase in swelling in his lower extremities and also in his testicular area. He became concerned yesterday and presented to the emergency department. Patient in the emergency department had laboratory testing blood pressure checks and an ultrasound done. Patient over the past few weeks. Says he is ambulating well. No weakness in his hands and feet. No difficulty with balance or coordination. Patient has no complaints of chest pain. He says he has not been short of breath. But in the emergency department his O2 saturations were low. He has not known to be on chronic oxygen therapy. In the emergency department patient had blood pressure testing which his blood pressure was mildly elevated to moderately elevated. His sodium was quite low. His other electrolytes look normal his kidney function was stable. Chest x-ray shows pulmonary haziness consistent with fluid. Patient has a elevated BNP. Patient's EKG shows no acute ST or T-wave changes. Because of patient's hyponatremia significant edema elevation of blood pressure and requiring oxygenation it was felt patient was a candidate for admission to the hospital. On my evaluation this poor morning patient is asleep in the bed he is easily arousable. He has a good historian. 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 Echocardiogram was done. Patient has normal ejection fraction. No significant valvular heart disease. Patient has signs symptoms x-ray findings consistent with fluid overload. patient was diuresed with IV Lasix and will be sent home with oral Lasix. Patient will be continued on his LISA inhibitor beta-darek was started. Metabolic encephalopathy. Patient with mild confusion. Patient easily directed with 3 orientation. Mild cognitive decline at baseline worsened in hospital possibly due to hyponatremia hospitalization. Stable at the time of discharge. Right-sided facial muscle weakness. With confusion. MRI done. No acute focal deficits. Continue aspirin cholesterol medication and blood pressure management. Acute respiratory failure. Patient improved with diuresis. At the time of discharge oxygen saturation was stable on room air. Patient will be discharged home without oxygen therapy. Hyponatremia. Patient has chronic hyponatremia sodium 120. One hundred twenty-three at discharge. Patient will be continued home with restriction of free water. We will stop his hydrochlorothiazide replace it with metoprolol and monitor his sodium as an outpatient. 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 CT scan of chest abdomen and pelvis repeated yesterday. No concerning new lesions or findings at or reoccurrence of known history of cancers. Will continue to monitor this outpatient Hypertension. blood pressure is well controlled. We stopped his hydrochlorothiazide due to his hyponatremia we will continue to stopped that continue with lisinopril and beta-darek will be added and he will continue at home. Hyperlipidemia. Patient will be continued on his Crestor 10 mg a day. Generalized anxiety disorder. Patient on mirtazapine this mirtazapine will be continued while he is here in the hospital stay. DVT prophylaxis with Lovenox. Home with home health Exam Vital Signs (past 8 hours): - 12/02/24 01:00 12/02/24 04:00 12/02/24 05:00 Temperature 98.0 F Pulse Rate 72 Respiratory Rate 19 Blood Pressure 128/86 Pulse Oximetry 97 99 97 Oxygen Delivery Method Nasal Cannula Room Air Oxygen Flow Rate 2 12/02/24 08:00 Temperature 96.8 F L Pulse Rate 85 Respiratory Rate 16 Blood Pressure 119/53 L Pulse Oximetry 95 Oxygen Delivery Method Oxygen Flow Rate 0 Fraction of Inspired Oxygen 28 SaO2/FiO2 Ratio 339 Oxygen Delivery Method Room Air Oxygen Flow Rate 0 Objective Labs 12/02/24 04:39 12/02/24 04:39 Labs: Laboratory Results - last 24 hr 12/02/24 04:39 WBC 4.3 L RBC 3.42 L Hgb 11.1 L Hct 32.5 L MCV 95.1 MCH 32.5 MCHC 34.2 RDW 14.1 Plt Count 243 Neut % (Auto) 58.4 Lymph % (Auto) 19.6 L Hawkins % (Auto) 18.5 H Eos % (Auto) 2.8 Baso % (Auto) 0.7 Neut # (Auto) 2500 Lymph # (Auto) 800 L Hawkins # (Auto) 800 Eos # (Auto) 100 Baso # (Auto) 0 Sodium 123 L Potassium 3.9 Chloride 87 L Carbon Dioxide 31 BUN 26 H Creatinine 1.42 H Estimated GFR 49 L BUN/Creatinine Ratio 18.3 Glucose 108 Calcium 8.6 Magnesium 1.3 L Total Bilirubin 0.5 AST 46 ALT 23 Alkaline Phosphatase 66 Total Protein 6.4 Albumin 3.6 Globulin 2.8 Albumin/Globulin Ratio 1.3 PFSH Medical History Melanoma 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 Hyponatremia TIA (transient ischemic attack) Scoliosis (~09/2014) Rosacea Mumps Measles Chicken pox Tinnitus Hearing loss Cataract (~09/2012) Kidney disease (~12/2014) Peripheral vascular disease (~12/2014) Hypertension Melanoma (~09/2014) Diverticulosis of large intestine without hemorrhage (01/13/18) Anxiety (06/26/17) 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) Status post nephrectomy (02/02/15) Neoplasm of kidney (12/01/14) Hyperlipidemia (02/27/11) Essential hypertension (02/27/11) Surgical History History of kidney removal Anesthesia Surgical procedure planned (~09/2014) History of nephrectomy (11/25/14) Social History marital status: household members: none Smoking Status: Never smoker alcohol intake: current substance use type: does not use Discharge Plan Discharge Plan Patient Disposition: Home Health Service Provider Discharge Comment: home f/u charlene 10 days Discharge orders & Medications Prescriptions: New metoprolol succinate 25 mg Tablet Extended Release 24 Hr 25 mg PO DAILY Qty: 90 0RF Continued sennosides [senna] 8.6 mg tablet 8.6 mg PO BID Qty: 30 1RF cyclosporine [Restasis] 1 EACH dropperette 1 drp OPHTH BID Qty: 0 aspirin 81 MG tablet,delayed release (DR/EC) 81 mg PO QDAY Qty: 90 3RF mirtazapine 30 mg tablet 30 mg PO ONCE PM Qty: 90 3RF rosuvastatin 10 mg tablet 10 mg PO DAILY Qty: 90 3RF lisinopril 40 mg tablet 40 mg PO DAILY Qty: 90 3RF amlodipine 5 mg tablet 5 mg PO DAILY Qty: 90 3RF melatonin 5 mg Tablet 5 mg PO BEDTIME PRN (Reason: Insomnia) Patient Comments: patient says he takes 'extra' ferrous sulfate 325 mg (65 mg iron) tablet 325 mg PO DAILY Qty: 30 0RF doxepin 10 mg capsule 10 mg PO DAILY Patient Comments: [NO ORIGINAL SIG] furosemide 40 mg tablet 40 mg DAILY Discontinued sodium chloride 1 GM tablet 1 gm PO DAILY Qty: 0 hydrochlorothiazide 25 mg tablet 25 mg PO DAILY Rx Instructions: Take 1 tab daily. May take an extra 1/2 tab every other day for edema as needed. Follow up/Referrals: Stoney Solorzano MD [Primary Care Provider] - Visit Report/Discharge Packet Stand Alone Forms: Patient Portal/API, Stroke Signs & Symptoms Discharge Data Primary Care Provider: Stoney Solorzano PROFEE Charge Codes Discharge inpatient/observation: [id number]
[2024-12-02] MEDS: POTASSIUM CHLORIDE 20 MEQ TAB PO (08:57)
[2024-12-02] MEDS: ENOXAPARIN 40 MG/0.4 ML SYRINGE SUBCUT (08:57)
[2024-12-02] MEDS: MAGNESIUM CHLORIDE 64 MG TABLET 128 MG PO (09:44)
[2024-12-02] MEDS: SODIUM CHLORIDE 0.9% 500 ML 1000 ML IV (10:42)
--- NOTE | 2024-12-02 14:08 | PC.NURSE ---
Addendum entered by Leana Smallwood R.N. 12/02/24 16:11: patient acknowledges new med metoprolol at [facility], discontinue HCTZ and sodium tablets as well as to follow up with MD Solorzano in x10 days Original Note: Patient is cleared for discharge this a.m. and is Oriented x3 although slightly forgetfull. Initially VSS,afebrile and weaned to RA. MD at bedside evaluating patient and clearing him for discharge home today per patient request. He becomes hypotensive in BR this a.m. and slumps in Shower chair, appearing extremely pail. He awakens and is able to walk with assist to chair, where BP is 65/37, and MD notified. He is assisted back to bed where BP improves and he is more alert. He is given a NS 500 ml bolus of IVF, with good effect and expresses still wanting to go home. He is able to ambulate without symptoms of hypotension in the room with SBA. After lunch he reports he is ready to go home, when asked if we could call a friend or family member to assist today. He says Absolutely not I am ok to drive home and you can't keep me here. notified and offered taxi ride to patient, and he still continues to refuse. He is able to dress himself and is escorted to vehicle via w/ch
--- NOTE | 2024-12-02 14:11 | CM.DPNOTE ---
DC Note Discharge home today, patient refuses HH, refuses assistance with a ride home. Dr Solorzano aware. Patient adamant that his family NOT be called. No further needs from this CM team identified. ROSE
== END 2024-12-02 15:20 | disposition home or self-care (01) | DRG 291 ==
LOC: ED 11-30 00:33 → AC 11-30 00:40
PROVIDERS: Admitting Provider Family Medicine; Emergency Provider Emergency Medicine; Family Provider Family Medicine; PCP Family Medicine; Referring Provider Emergency Medicine; Visit Provider Family Medicine
DX: I13.0 Hypertensive heart and chronic kidney disease with heart failure and stage 1 through stage 4 chronic kidney disease, or unspecified chronic kidney disease (principal); G93.41 Metabolic encephalopathy; I50.31 Acute diastolic (congestive) heart failure; J96.01 Acute respiratory failure with hypoxia; E87.1 Hypo-osmolality and hyponatremia; N18.31 Chronic kidney disease, stage 3a; E78.5 Hyperlipidemia, unspecified; F41.1 Generalized anxiety disorder; R29.810 Facial weakness; Z85.820 Personal history of malignant melanoma of skin; Z86.73 Personal history of transient ischemic attack (TIA), and cerebral infarction without residual deficits; Z85.528 Personal history of other malignant neoplasm of kidney; Z90.5 Acquired absence of kidney
CPT/HCPCS: 36415; 70551; 71045; 71260; 74177; 76870; 80053; 81003; 81015; 82550; 83690; 83735; 83880; 84484; 85025; 93005; 93307; 93975; 94762; 96374; 99285; J1650; J1940; J2060; Q9967

== ENCOUNTER → 2024-12-09 15:33 | Outpatient (CLI) | payer MEDICARE, OTHER, SELFPAY ==
[2024-11-30 01:25] VITALS: BMI 29.2
[2024-12-09 16:36] LABS: BUN Creatinine Ratio 16.2 (6-22); Blood Urea Nitrogen 17 mg/dL (9-20); Calcium 9.8 mg/dL (8.4-10.2); Carbon Dioxide 27 mmol/L (22-32); Chloride 94 mmol/L (98-107); Estimated Glomerular Filt Rate > 60 mL/min (>60); Glucose 107 mg/dL (80-110); HEMOLYSIS < 15 (0-50); Potassium 5.3 mmol/L (3.4-5.1); Sodium 133 mmol/L (137-145)
== END ==
PROVIDERS: Family Provider Family Medicine; PCP Family Medicine; Referring Provider Physician Assistant; Visit Provider Physician Assistant
DX: E87.1 Hypo-osmolality and hyponatremia (principal); I50.9 Heart failure, unspecified; N18.31 Chronic kidney disease, stage 3a
CPT/HCPCS: 36415; 80048

== ENCOUNTER 2025-02-16 14:06 | Inpatient (IN) | payer MEDICARE, OTHER, SELFPAY ==
[2024-11-30 01:25] VITALS: BMI 29.2
[2025-02-16] VITALS (26 sets, daily range): BP systolic 120–177; BP diastolic 65–91; PULSE 59–78; RESP 8–24; TEMP 36.6–37.3; O2SAT 88–99; BMI 28.5
--- NOTE | 2025-02-16 14:06 | DI.RAD.S_ITS ---
PROCEDURE: XR CHEST 1V INDICATIONS: Shortness of breath TECHNIQUE: One view of the chest was acquired. COMPARISON: [facility], CT, CT CHEST ABD PEL W CON, 11/30/2024, 8:37. [facility], CR, XR CHEST 1V, 11/29/2024, 22:34. FINDINGS: Surgical changes and devices: Sternotomy wires and mediastinal clips. Lungs and pleura: Low lung volumes bilaterally with bibasilar atelectasis and suspected small effusions. Mild interstitial prominence may indicate edema. Mediastinum: Mediastinal contours appear normal. Heart size is normal. Bones and chest wall: No suspicious bony lesions. Overlying soft tissues appear unremarkable. IMPRESSION: Low lung volumes bilaterally. Small pleural effusions. Bilateral interstitial prominence is suspicious for mild edema versus possibly an atypical or viral infection. Approved by: Nj Galicia M.D. on 02/16/2025 at 14:58
[2025-02-16] MEDS: ALBUTEROL/IPRATROPIUM 3 ML AMPUL INH (14:16)
--- NOTE | 2025-02-16 14:16 | ED_ITS ---
HPI - SOB/Dyspnea General Chief Complaint: Shortness of Breath/Dyspnea Stated Complaint: SOB/Weakness x2 Days Time Seen by Provider: 02/16/25 14:08 Source: family and EMS Mode of arrival: EMS Limitations: no limitations History of Present Illness HPI Narrative: Patient brought in by ambulance from home. Home oxygen saturation upper 70s low 80s according to EMS. Patient received albuterol nebulizer in route. Is on nasal cannula oxygen now. Starting it feel better in speaking more full sentences. Denies any chest pain. Patient states he does not have any history of COPD asthma. No history of heart attack. No history of CHF. No history of AFib. Patient sees primary care Dr. Stoney Solorzano. Patient denies any sick contacts or recent foreign travel. Patient has audible wheezing. Related Data Home Medications ?Medication ?Instructions ?Recorded ?Confirmed cyclosporine 0.05 % eye drops in a 1 drp OPHTH BID ##0 07/12/16 02/21/25 dropperette (Restasis) melatonin 5 mg tablet 5 mg PO BEDTIME PRN Insomnia 02/10/19 02/21/25 doxepin 10 mg capsule 10 mg PO DAILY 11/30/2411/16 multivitamin with calcium and tab PO 02/21/25 02/21/25 minerals-folic acid 200 mcg tablet (One-A-Day Proactive 65 Plus) Previous Rx's ?Medication ?Instructions ?Recorded aspirin 81 mg tablet,delayed 81 mg PO QDAY #90 tabs release sennosides 8.6 mg tablet (senna) 8.6 mg PO BID #30 tab s 12/05/20 lisinopril 40 mg tablet 40 mg PO DAILY #90 tabs 02/12 mirtazapine 30 mg tablet 30 mg PO ONCE PM #90 tabs rosuvastatin 10 mg tablet 10 mg PO DAILY #90 tabs 09/22 03/16 metoprolol succinate 25 mg 25 mg PO DAILY #90 tabs 09/15 tablet,extended release 24 hr cyanocobalamin (vitamin B-12) 1,000 mcg PO DAILY #90 t abs 02/21/25 1,000 mcg tablet (Vitamin B-12) empagliflozin 10 mg tablet 10 mg PO DAILY #30 tabs 11/16 (Jardiance) furosemide 40 mg tablet 40 mg PO DAILY #90 tabs 11/16 levothyroxine 75 mcg tablet 75 mcg PO DAILY #30 tabs 0 02/21/25 (Synthroid) spironolactone 25 mg tablet 25 mg PO DAILY #30 tabs Allergies Allergy/AdvReac Type Severity Reaction Status Date / Time No Known Drug Allergies Allergy Verified 01/13/25 13:49 Review of Systems Review of Systems Narrative: GENERAL: Negative chills, fatigue, malaise, fever, sweats. 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 Hyponatremia TIA (transient ischemic attack) Scoliosis (~09/2014) Rosacea Mumps Measles Chicken pox Tinnitus Hearing loss Cataract (~09/2012) Kidney disease (~12/2014) Peripheral vascular disease (~12/2014) Hypertension Melanoma (~09/2014) Diverticulosis of large intestine without hemorrhage (01/13/18) Anxiety (06/26/17) 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 EYES: Pupils equal round ENT: Mucous membranes moist. NECK: Trachea midline. CARDIOVASCULAR: Regular rate and rhythm RESPIRATORY: Patient is speaking in near full sentences with supplemental oxygen. Does have audible wheezing, there is diminished lung sounds at both bases. GASTROINTESTINAL: Abdomen soft, non-tender EXTREMITIES: No gross deformities. There is 3+ ankle foot edema bilaterally BACK: No flank tenderness. NEURO: AOx4. Clear speech SKIN: Warm and dry PSYCH: Not anxious, is cooperative Initial Vital Signs Initial Vital Signs: Vital Signs Temperature 97.8 F 02/16/25 14:07 Pulse Rate 71 02/16/25 14:07 Respiratory Rate 19 02/16/25 14:07 Pulse Oximetry 91 02/16/25 14:07 Oxygen Delivery Method Nasal Cannula 02/16/25 14:07 Oxygen Flow Rate 10 02/16/25 14:07 Course Orders Ordered: Discontinued Medications Acetaminophen (Acetaminophen 325 Mg Tablet) 650 mg PO Q6H PRN PRN Reason: Fever/Mild Pain (1-3) Albuterol (Albuterol 2.5 Mg/3 Ml Neb (Adult)) 2.5 mg INH [id number] PRN PRN Reason: Shortness Of Breath Last Admin: 02/17/25 10:31 Dose: 2.5 mg Documented By: SAT Albuterol/Ipratropium (Albuterol/Ipratropium 3 Ml Ampul) 3 ml INH NOW ONE Stop: 02/16/25 14:09 Last Admin: 02/16/25 14:16 Dose: 3 ml Documented By: RB Artificial Tears (Carboxymethylcellulose Drops) 1 drops EYE-BOTH PRN PRN PRN Reason: Dry Eye(s) Last Admin: 02/18/25 09:37 Dose: 1 drop Documented By: KARRIE Aspirin (Aspirin Ec 81 Mg Tablet) 81 mg PO DAILY [facility] Last Admin: 02/21/25 08:35 Dose: 81 mg Documented By: Admin: 02/20/25 08:52 Dose: 81 mg Documented By: Admin: 02/19/25 09:13 Dose: 81 mg Documented By: Admin: 02/18/25 09:04 Dose: 81 mg Documented By: Admin: 02/17/25 08:20 Dose: 81 mg Documented By: RAFI Atorvastatin Calcium (Atorvastatin 20 Mg Tablet) 20 mg PO BEDTIME [facility] Last Admin: 02/20/25 21:39 Dose: 20 mg Documented By: Admin: 02/19/25 22:04 Dose: 20 mg Documented By: Admin: 02/18/25 22:01 Dose: 20 mg Documented By: Admin: 02/17/25 20:44 Dose: 20 mg Documented By: Admin: 02/16/25 20:18 Dose: 20 mg Documented By: ALLISON Bisacodyl (Bisacodyl 10 Mg Supp) 10 mg NC DAILY PRN PRN Reason: Constipation Last Admin: 02/21/25 09:54 Dose: 10 mg Documented By: Admin: 02/20/25 11:15 Dose: 10 mg Documented By: Admin: 02/18/25 09:38 Dose: 10 mg Documented By: Admin: 02/17/25 09:45 Dose: 10 mg Documented By: Bumetanide (Bumetanide 1 Mg/4 Ml Vial) 0.5 mg IV NOW ONE Stop: 02/17/25 14:56 Last Admin: 02/17/25 15:26 Dose: 0.5 mg Documented By: RAFI Enoxaparin Sodium (Enoxaparin 40 Mg/0.4 Ml Syringe) 40 mg SUBCUT DAILY [facility] Last Admin: 02/17/25 08:20 Dose: 40 mg Documented By: RAFI Furosemide (Furosemide 40 Mg/4 Ml Vial) 40 mg IV NOW ONE Stop: 02/16/25 16:27 Last Admin: 02/16/25 16:33 Dose: 40 mg Documented By: ZOHAIB Furosemide (Furosemide 40 Mg/4 Ml Vial) 40 mg IV Q6HR [facility] Last Admin: 02/18/25 05:54 Dose: 40 mg Documented By: Admin: 02/18/25 00:15 Dose: 40 mg Documented By: Admin: 02/17/25 17:56 Dose: 40 mg Documented By: Admin: 02/17/25 12:04 Dose: 40 mg Documented By: Admin: 02/17/25 05:24 Dose: 40 mg Documented By: Admin: 02/17/25 00:13 Dose: 40 mg Documented By: Admin: 02/16/25 18:09 Dose: 40 mg Documented By: Furosemide (Furosemide 40 Mg/4 Ml Vial) 40 mg IV PRN PRN PRN Reason: Wheezing Furosemide (Furosemide 40 Mg Tablet) 40 mg PO 0800,1700 [facility] Last Admin: 02/21/25 08:35 Dose: 40 mg Documented By: Admin: 02/20/25 17:31 Dose: 40 mg Documented By: Admin: 02/20/25 08:52 Dose: 40 mg Documented By: Admin: 02/19/25 17:27 Dose: 40 mg Documented By: Admin: 02/19/25 09:13 Dose: 40 mg Documented By: Admin: 02/18/25 16:44 Dose: 40 mg Documented By: KARRIE Lisinopril (Lisinopril 20 Mg Tablet) 40 mg PO DAILY [facility] Last Admin: 02/21/25 08:35 Dose: 40 mg Documented By: Admin: 02/20/25 08:52 Dose: 40 mg Documented By: Admin: 02/19/25 09:12 Dose: 40 mg Documented By: Admin: 02/18/25 09:05 Dose: 40 mg Documented By: Admin: 02/17/25 08:19 Dose: 40 mg Documented By: RAFI Lorazepam (Lorazepam 2 Mg/Ml Inj) 0.5 mg IV Q6HR PRN PRN Reason: Anxiety Lorazepam (Lorazepam 1 Mg Tablet) 1 mg PO Q4HR PRN PRN Reason: Anxiety Last Admin: 02/20/25 21:38 Dose: 1 mg Documented By: Admin: 02/19/25 22:04 Dose: 1 mg Documented By: Admin: 02/18/25 22:02 Dose: 1 mg Documented By: Admin: 02/18/25 13:55 Dose: 1 mg Documented By: Admin: 02/18/25 09:37 Dose: 1 mg Documented By: KARRIE Methylprednisolone (Methylprednisolone 125 Mg/2 Ml Vial) 125 mg IV NOW ONE Stop: 02/16/25 14:17 Last Admin: 02/16/25 14:19 Dose: 125 mg Documented By: CM Methylprednisolone (Methylprednisolone 40 Mg/Ml Vial) 60 mg IV NOW ONE Stop: 02/17/25 17:44 Last Admin: 02/17/25 17:56 Dose: 60 mg Documented By: RAFI Metoprolol Succinate (Metoprolol Er 25 Mg Tablet) 25 mg PO DAILY [facility] Last Admin: 02/19/25 11:19 Dose: Not Given Documented By: Admin: 02/18/25 09:04 Dose: 25 mg Documented By: Admin: 02/17/25 08:20 Dose: 25 mg Documented By: RAFI Metoprolol Succinate (Metoprolol Er 25 Mg Tablet) 12.5 mg PO DAILY [facility] Last Admin: 02/21/25 08:35 Dose: 12.5 mg Documented By: Admin: 02/20/25 08:51 Dose: 12.5 mg Documented By: ANYA Metoprolol Succinate (Metoprolol Er 25 Mg Tablet) 12.5 mg PO NOW ONE Stop: 02/19/25 11:13 Last Admin: 02/19/25 13:08 Dose: 12.5 mg Documented By: CHRIS Mirtazapine (Mirtazapine 15 Mg Tablet) 30 mg PO BEDTIME [facility] Last Admin: 02/20/25 21:38 Dose: 30 mg Documented By: Admin: 02/19/25 22:03 Dose: 30 mg Documented By: Admin: 02/18/25 22:00 Dose: 30 mg Documented By: Admin: 02/17/25 20:44 Dose: 30 mg Documented By: Admin: 02/16/25 20:18 Dose: 30 mg Documented By: ALLISON Naloxone HCl (Naloxone 0.4 Mg/Ml Vial) 0.2 mg IV Q2MIN PRN PRN Reason: Opiate Reversal Doxepin 10 Mg (Capsule) 10 mg PO DAILY [facility] Last Admin: 02/21/25 08:32 Dose: Not Given Documented By: Admin: 02/20/25 08:54 Dose: Not Given Documented By: Admin: 02/19/25 09:13 Dose: Not Given Documented By: Admin: 02/18/25 09:18 Dose: Not Given Documented By: KARRIE Polyethylene Glycol (Polyethylene Glycol 3350 17 Gm Powd.Pack) 17 gm PO DAILY PRN PRN Reason: Constipation Last Admin: 02/20/25 08:52 Dose: 17 gm Documented By: Admin: 02/18/25 11:44 Dose: 17 gm Documented By: KARRIE Sennosides (Sennosides 8.6 Mg Tablet) 8.6 mg PO BID [facility] Last Admin: 02/21/25 08:35 Dose: 8.6 mg Documented By: Admin: 02/20/25 21:39 Dose: 8.6 mg Documented By: Admin: 02/20/25 08:52 Dose: 8.6 mg Documented By: Admin: 02/19/25 22:04 Dose: 8.6 mg Documented By: Admin: 02/19/25 09:13 Dose: 8.6 mg Documented By: Admin: 02/18/25 22:00 Dose: 8.6 mg Documented By: Admin: 02/18/25 09:05 Dose: 8.6 mg Documented By: Admin: 02/17/25 20:44 Dose: 8.6 mg Documented By: Admin: 02/17/25 09:45 Dose: 8.6 mg Documented By: Sodium Chloride (Sodium Chloride 0.9% Flush) 10 ml IV BID [facility] Last Admin: 02/21/25 08:37 Dose: 10 ml Documented By: Admin: 02/20/25 21:39 Dose: 10 ml Documented By: Admin: 02/20/25 08:54 Dose: 10 ml Documented By: Admin: 02/19/25 22:04 Dose: 10 ml Documented By: Admin: 02/19/25 09:13 Dose: 10 ml Documented By: Admin: 02/18/25 22:02 Dose: 10 ml Documented By: Admin: 02/18/25 09:04 Dose: 10 ml Documented By: Admin: 02/17/25 21:57 Dose: 10 ml Documented By: Admin: 02/17/25 08:21 Dose: 10 ml Documented By: Admin: 02/16/25 20:23 Dose: 10 ml Documented By: TO Sodium Chloride (Sodium Chloride 0.9% Flush) 10 ml IV PRN PRN PRN Reason: Flush Spironolactone (Spironolactone 25 Mg Tablet) 25 mg PO 0900,1700 [facility] Last Admin: 02/21/25 08:34 Dose: 25 mg Documented By: Admin: 02/20/25 17:31 Dose: 25 mg Documented By: Admin: 02/20/25 08:51 Dose: 25 mg Documented By: Admin: 02/19/25 17:27 Dose: 25 mg Documented By: Admin: 02/19/25 09:13 Dose: 25 mg Documented By: Admin: 02/18/25 16:44 Dose: 25 mg Documented By: Admin: 02/18/25 09:05 Dose: 25 mg Documented By: Admin: 02/17/25 17:16 Dose: 25 mg Documented By: Admin: 02/17/25 09:22 Dose: 25 mg Documented By: RAFI Vital Signs Vital signs: Vital Signs - 8 hr 02/16/25 14:07 02/16/25 14:08 02/16/25 14:14 Temperature 97.8 F Pulse Rate 71 70 Respiratory Rate 19 Blood Pressure 142/87 H Pulse Oximetry 91 89 L Oxygen Delivery Method Nasal Cannula High Flow Nasal Cannula Oxygen Flow Rate 10 Fraction of Inspired Oxygen 02/16/25 14:14 02/16/25 14:30 02/16/25 14:30 Temperature Pulse Rate 69 69 Respiratory Rate 17 17 Blood Pressure 142/87 H Pulse Oximetry 88 L 94 Oxygen Delivery Method High Flow Nasal Cannula BiPAP Oxygen Flow Rate Fraction of Inspired Oxygen 0.50 02/16/25 14:35 02/16/25 14:35 02/16/25 15:00 Temperature Pulse Rate 70 63 Respiratory Rate 14 Blood Pressure 177/83 H Pulse Oximetry 96 94 Oxygen Delivery Method BiPAP BiPAP Oxygen Flow Rate Fraction of Inspired Oxygen 02/16/25 15:01 02/16/25 15:01 02/16/25 15:30 Temperature Pulse Rate 62 65 Respiratory Rate 12 Blood Pressure 160/80 H Pulse Oximetry 94 96 Oxygen Delivery Method BiPAP BiPAP Oxygen Flow Rate Fraction of Inspired Oxygen 02/16/25 15:31 02/16/25 15:31 Temperature Pulse Rate 65 Respiratory Rate 12 Blood Pressure 155/81 H Pulse Oximetry 96 Oxygen Delivery Method BiPAP Oxygen Flow Rate Fraction of Inspired Oxygen MDM - SOB/Dyspnea Lab Data 02/21/25 04:28 02/21/25 04:28 Labs: Lab Results 02/16/25 02/16/25 02/16/25 Range/Units 14:00 14:11 14:14 WBC 8.2 (4.5-11.0) X10^3/uL RBC 3.75 L (4.5-5.9) X10^6/uL Hgb 12.2 L (13.5-17.5) g/dL Hct 35.5 L (41-53) % MCV 94.6 (80-100) fL MCH 32.6 (26-34) PG MCHC 34.4 (30-36) % RDW 14.7 (11.6-14.8) % Plt Count 233 (150-400) X10^3/uL Neut % (Auto) 81.4 H (50-75) % Lymph % (Auto) 7.0 L (25-40) % Leon % (Auto) 11.0 (3-14) % Eos % (Auto) 0.2 L (2-4) % Baso % (Auto) 0.4 (0-2) % Neut # (Auto) 6700 (1497-5208) /uL Lymph # (Auto) 600 L (9858-4539) /uL Leon # (Auto) 900 (0-900) /uL Eos # (Auto) 0 (0-450) /uL Baso # (Auto) 0 (0-100) /uL PT 13.1 H (9.4-12.5) SECONDS INR 1.2 (0.9-1.3) VBG pH (7.33-7.43) VBG pCO2 (45-50) mmHg VBG pO2 (35-45) mmHg VBG HCO3 (24-28) mmol/L VBG Total CO2 (24-29) mmol/L VBG O2 Saturation (70-75) % VBG Base Excess (0-4) mmol/L FiO2 % % Sodium 122 L (137-145) mmol/L Potassium 4.7 (3.4-5.1) mmol/L Chloride 84 L (98-107) mmol/L Carbon Dioxide 25 (22-32) mmol/L BUN 25 H (9-20) mg/dL Creatinine 1.18 (0.66-1.25) mg/dL Estimated GFR > 60 (>60) mL/min BUN/Creatinine Ratio 21.2 (6-22) Glucose 106 H (70-99) mg/dL Lactate 1.2 (0.7-2.1) mmol/L Calcium 9.0 (8.4-10.2) mg/dL Total Bilirubin 0.6 (0.2-1.3) mg/dL AST 43 (17-59) IU/L ALT 25 (<50) IU/L Alkaline Phosphatase 101 (38-126) U/L Troponin I < 0.012 (0.01-0.034) ng/mL NT-Pro-B Natriuret Pep 2540 H (<450) pg/mL Total Protein 7.8 (6.3-8.2) g/dL Albumin 4.8 (3.5-5.0) g/dL Globulin 3.0 (1.7-4.1) g/dL Albumin/Globulin Ratio 1.6 (1.0-2.8) Procalcitonin 0.091 (<0.5) ng/mL Chlamy pneumoniae PCR Not detected (Not Detect) Adenovirus (PCR) Not detected (Not Detect) B. pertussis DNA (PCR) Not detected (Not Detect) B.parapertussis DNA PCR Not detected (Not Detecte) Coronavirus OC43 (PCR) Not detected (Not Detect) Coronavirus HKU1 (PCR) Not detected (Not Detect) Coronavirus 229E (PCR) Not detected (Not Detect) SARS-CoV-2 (PCR) Not detected (Not Detecte) Coronavirus NL63 (PCR) Not detected (Not Detect) Human Metapneumovir PCR Not detected (Not Detect) Influenza Type A (PCR) Not detected (Not Detect) Influenza Type B (PCR) Not detected (Not Detect) M. pneumoniae (PCR) Not detected (Not Detect) Parainfluenza 1 (PCR) Not detected (Not Detect) Parainfluenza 2 (PCR) Not detected (Not Detect) Parainfluenza 3 (PCR) Not detected (Not Detect) Parainfluenza 4 (PCR) Not detected (Not Detect) RSV (PCR) Not detected (Not Detect) Entero/Rhino (PCR) Not detected (Not Detect) 02/16/25 Range/Units 14:51 WBC (4.5-11.0) X10^3/uL RBC (4.5-5.9) X10^6/uL Hgb (13.5-17.5) g/dL Hct (41-53) % MCV (80-100) fL MCH (26-34) PG MCHC (30-36) % RDW (11.6-14.8) % Plt Count (150-400) X10^3/uL Neut % (Auto) (50-75) % Lymph % (Auto) (25-40) % Leon % (Auto) (3-14) % Eos % (Auto) (2-4) % Baso % (Auto) (0-2) % Neut # (Auto) (0371-8826) /uL Lymph # (Auto) (1165-4607) /uL Leon # (Auto) (0-900) /uL Eos # (Auto) (0-450) /uL Baso # (Auto) (0-100) /uL PT (9.4-12.5) SECONDS INR (0.9-1.3) VBG pH 7.42 (7.33-7.43) VBG pCO2 43.0 L (45-50) mmHg VBG pO2 41 (35-45) mmHg VBG HCO3 28 (24-28) mmol/L VBG Total CO2 27 (24-29) mmol/L VBG O2 Saturation 77 H (70-75) % VBG Base Excess 2.8 (0-4) mmol/L FiO2 % 50.0 % % Sodium (137-145) mmol/L Potassium (3.4-5.1) mmol/L Chloride (98-107) mmol/L Carbon Dioxide (22-32) mmol/L BUN (9-20) mg/dL Creatinine (0.66-1.25) mg/dL Estimated GFR (>60) mL/min BUN/Creatinine Ratio (6-22) Glucose (70-99) mg/dL Lactate (0.7-2.1) mmol/L Calcium (8.4-10.2) mg/dL Total Bilirubin (0.2-1.3) mg/dL AST (17-59) IU/L ALT (<50) IU/L Alkaline Phosphatase (38-126) U/L Troponin I (0.01-0.034) ng/mL NT-Pro-B Natriuret Pep (<450) pg/mL Total Protein (6.3-8.2) g/dL Albumin (3.5-5.0) g/dL Globulin (1.7-4.1) g/dL Albumin/Globulin Ratio (1.0-2.8) Procalcitonin (<0.5) ng/mL Chlamy pneumoniae PCR (Not Detect) Adenovirus (PCR) (Not Detect) B. pertussis DNA (PCR) (Not Detect) B.parapertussis DNA PCR (Not Detecte) Coronavirus OC43 (PCR) (Not Detect) Coronavirus HKU1 (PCR) (Not Detect) Coronavirus 229E (PCR) (Not Detect) SARS-CoV-2 (PCR) (Not Detecte) Coronavirus NL63 (PCR) (Not Detect) Human Metapneumovir PCR (Not Detect) Influenza Type A (PCR) (Not Detect) Influenza Type B (PCR) (Not Detect) M. pneumoniae (PCR) (Not Detect) Parainfluenza 1 (PCR) (Not Detect) Parainfluenza 2 (PCR) (Not Detect) Parainfluenza 3 (PCR) (Not Detect) Parainfluenza 4 (PCR) (Not Detect) RSV (PCR) (Not Detect) Entero/Rhino (PCR) (Not Detect) Imaging Data Chest x-ray: Radiologist's Impression: [address] [address] XRay Report Signed Patient: Chicho Will MR#: [id number] : 1940 Acct:[id number] Age/Sex: 84 / M Date of Service: 02/16/25 Loc: ED Accession Number: [id number] Procedure: XR chest 1V Ordering Provider: Kit Jean-Baptiste MD PROCEDURE: XR CHEST 1V INDICATIONS: Shortness of breath TECHNIQUE: One view of the chest was acquired. COMPARISON: [facility], CT, CT CHEST ABD PEL W CON, 11/30/2024, 8:37. [facility], CR, XR CHEST 1V, 11/29/2024, 22:34. FINDINGS: Surgical changes and devices: Sternotomy wires and mediastinal clips. Lungs and pleura: Low lung volumes bilaterally with bibasilar atelectasis and suspected small effusions. Mild interstitial prominence may indicate edema. Mediastinum: Mediastinal contours appear normal. Heart size is normal. Bones and chest wall: No suspicious bony lesions. Overlying soft tissues appear unremarkable. IMPRESSION: Low lung volumes bilaterally. Small pleural effusions. Bilateral interstitial prominence is suspicious for mild edema versus possibly an atypical or viral infection. Approved by: Nj Galicia M.D. on 02/16/2025 at 14:58 MDM Narrative Medical decision making narrative: Patient brought in by ambulance from home. Home oxygen saturation upper 70s low 80s according to EMS. Patient received albuterol nebulizer in route. Is on nasal cannula oxygen now. Starting it feel better in speaking more full sentences. Denies any chest pain. Patient states he does not have any history of COPD asthma. No history of heart attack. No history of CHF. No history of AFib. Patient sees primary care Dr. Stoney Solorzano. Patient denies any sick contacts or recent foreign travel. Patient has audible wheezing. After history and exam, CBC CMP procalcitonin lactic acid chest x-ray EKG respiratory panel VBG, possible BiPAP. Blood cultures, admit MDM Medical records reviewed: No recent visit for this complaint Differential considered: Includes but not limited to viral upper respiratory infection pneumonia bronchitis CHF exacerbation STEMI non-STEMI Lab Test results independently reviewed as above. Pertinent findings: WBC 8.2 hemoglobin 12.2 INR 1.2 VBG 7.42, pCO2 43 PO2 41, sodium 122 potassium 4.7 BUN 25 creatinine 1.18 GFR greater than 60 troponin less than 0.012 BNP 2540 procalcitonin 0.091 respiratory panel negative Independently reviewed EKG atrial fibrillation rate [address] elevation Imaging studies independently reviewed: Chest x-ray small pleural effusions, there is interstitial edema Consultations: 4:26 p.m.. Spoke with patient's primary care, Dr. Stoney Solorzano, who will admit patient. This is likely CHF exacerbation. Would like patient to have 40 mg of Lasix now. Patient may be able transitioned from BiPAP to high- flow, will require ICU Re-evaluations: 4:30 p.m.. Updated patient results and he does agree for admission. Still awake alert, not altered. Discussion: Appropriate for admission. Patient requiring BiPAP/ICU. However patient remains awake alert oriented x4. Protecting airway. New onset atrial fibrillation discussed with Dr. Solorzano, will address this when on the floor for anticoagulation. Onset uncertain. No cardioversion at this time. Diagnosis: New onset atrial fibrillation hyponatremia dyspnea Critical Care Time Critical Care Time Attestation: Critical Care Time 35 minutes: Critical care time is separate from other billable procedures. This critical care time includes consultation with family and other consulting doctors, review of records, and interpretation of data from labs, EKGs, imaging, etc. Discharge Plan Departure Patient Disposition: Admitted As Inpatient Clinical Impression: Atrial fibrillation, new onset Acute exacerbation of CHF (congestive heart failure) Qualifiers: Heart failure type: unspecified Qualified Code(s): I50.9 - Heart failure, unspecified Admit Date/Time: 02/16/25 16:26 Admit Provider: Stoney Solorzano
--- NOTE | 2025-02-16 14:17 | EKG_ITS ---
[address] [address] Test Date: 2025-02-16 Pat Name: Chicho Will Department: Room: Gender: Male Transmission Superintendent: SABI : 1940 Requested By: Order Number: [id number] Reading MD: Hipolito Altamirano Measurements Intervals [place] Rate: 60 P: HI: QRS: 46 QRSD: 96 T: 27 QT: 422 QTc: 422 Interpretive Statements Atrial fibrillation Possible Anterior infarct , age undetermined Electronically Signed On 02-16-2025 17:48:44 PDT by Hipolito Altamirano
[2025-02-16 14:19] LABS: Add Manual Diff / Slide Review NO; Basophils Absolute Auto 0 /uL (0-100); Basophils Percent Auto 0.4 % (0-2); Eosinophils Absolute Auto 0 /uL (0-450); Eosinophils Percent Auto 0.2 % (2-4); Hematocrit 35.5 % (41-53); Hemoglobin 12.2 g/dL (13.5-17.5); Lymphocytes Absolute Auto 600 /uL (1100-4500); Mean Corpuscular HGB Conc 34.4 % (30-36); Mean Corpuscular Hemoglobin 32.6 PG (26-34); Mean Corpuscular Volume 94.6 fL (80-100); Monocytes Absolute Auto 900 /uL (0-900); Neutrophils Absolute Auto 6700 /uL (1500-7000); Neutrophils Percent Auto 81.4 % (50-75); Platelet Count 233 X10^3/uL (150-400); Red Blood Cell Count 3.75 X10^6/uL (4.5-5.9); Red Cell Distribution Width 14.7 % (11.6-14.8); White Blood Cell Count 8.2 X10^3/uL (4.5-11.0)
[2025-02-16] MEDS: methylPREDNISolone 125 MG/2 ML VIAL IV (14:19)
[2025-02-16 14:27] LABS: INR 1.2 (0.9-1.3); Prothrombin Time 13.1 SECONDS (9.4-12.5)
[2025-02-16 14:33] LABS: Albumin 4.8 g/dL (3.5-5.0); Albumin Globulin Ratio 1.6 (1.0-2.8); Carbon Dioxide 25 mmol/L (22-32); Chloride 84 mmol/L (98-107); Glucose 106 mg/dL (70-99); HEMOLYSIS < 15 (0-50); Lactate (Lactic Acid) 1.2 mmol/L (0.7-2.1); Potassium 4.7 mmol/L (3.4-5.1); Sodium 122 mmol/L (137-145); Total Protein 7.8 g/dL (6.3-8.2)
[2025-02-16 14:45] LABS: NT-proBNP (BNP-Adult 18+) 2540 pg/mL (<450); Troponin I < 0.012 ng/mL (0.01-0.034)
[2025-02-16 14:53] LABS: Alanine Aminotransferase 25 IU/L (<50); Alkaline Phosphatase 101 U/L (38-126); Aspartate Aminotransferase 43 IU/L (17-59); BUN Creatinine Ratio 21.2 (6-22); Bilirubin Total 0.6 mg/dL (0.2-1.3); Blood Urea Nitrogen 25 mg/dL (9-20); Estimated Glomerular Filt Rate > 60 mL/min (>60)
[2025-02-16 14:58] LABS: Base Excess VBG 2.8 mmol/L (0-4); HCO3 VBG 28 mmol/L (24-28); Oxygen Saturation VBG 77 % (70-75); PO2 VBG 41 mmHg (35-45); Total CO2 VBG 27 mmol/L (24-29); pH VBG 7.42 (7.33-7.43)
[2025-02-16 15:16] LABS: Adenovirus Not Detected (Not Detect); B. parapertussis Not Detected (Not Detecte); Bordetella pertussis Not Detected (Not Detect); Chlamydophila pneumoniae Not Detected (Not Detect); Coronavirus 229E Not Detected (Not Detect); Coronavirus HKU1 Not Detected (Not Detect); Coronavirus NL 63 Not Detected (Not Detect); Coronavirus OC43 Not Detected (Not Detect); Human Metapneumovirus Not Detected (Not Detect); Human Rhinovirus/Enterovirus Not Detected (Not Detect); Influenza A Not Detected (Not Detect); Influenza B Not Detected (Not Detect); Mycoplasma pneumoniae Not Detected (Not Detect); Parainfluenza Virus 1 Not Detected (Not Detect); Parainfluenza Virus 2 Not Detected (Not Detect); Parainfluenza Virus 3 Not Detected (Not Detect); Parainfluenza Virus 4 Not Detected (Not Detect); Respiratory Syncytial Virus Not Detected (Not Detect); SARS- CoV-2 Not Detected (Not Detecte)
[2025-02-16 15:20] LABS: Procalcitonin 0.091 ng/mL (<0.5)
--- NOTE | 2025-02-16 16:26 | PM.HP.IH.1 ---
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 Patient presents to the emergency department with shortness of breath. Patient states he is noticed some dizziness over the last 3 days. When he was into town yesterday said he was feeling more dizzy and had to come home. He says that has been on and off. Noticed in the last 24 hours he became a little bit more short of breath. Shortness of breath progressively worsened today as well as dizziness and presented to the emergency department. Patient has noticed increased swelling and edema over the last month or so. Patient denies any recent changes in his medications. He has on a diuretic and he says he has been taking that. Patient denies any recent palpitations irregular heart rhythms or pain in his chest that he is aware of. He has had decreased exercise tolerance. And what he describes his increasing edema in his feet and ankles he even feels swollen up to his knees. Patient does state he takes his medication regularly he has had girl good urine output. He has had no problems with eating. He has had no significant dietary changes recently. On arrival to the emergency department patient was significantly hypoxic and hypertensive and required BiPAP for oxygenation. His initial workup included blood work x-ray. He was given Solu-Medrol and nebulizer. Initially has laboratory work came back and as I discussed with the emergency department physician he was started on Lasix. His lab tests show normal white blood cell count hemoglobin hematocrit. Patient had a venous blood gas with a pCO2 of 43. Patient had a sodium of 122 normal creatinine blood glucose was normal lactate was normal troponin was normal BNP was significantly elevated at 2540 patient had viral panel testing which was negative chest x-ray shows signs of pulmonary congestion edema and possible pleural effusion. EKG shows atrial fibrillation which is new for this patient. Patient is not on anticoagulation. Review of echocardiogram done in November of this year shows ejection fraction of 60-65% with mild ventricular dilation without significant valvular heart disease. 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) Status post nephrectomy (02/02/15) Neoplasm of kidney (12/01/14) Hyperlipidemia (02/27/11) Essential hypertension (02/27/11) Surgical History History of kidney removal Anesthesia Surgical procedure planned (~09/2014) History of nephrectomy (11/25/14) Social History marital status: household members: none Smoking Status: Never smoker alcohol intake: current substance use type: does not use Meds Home Medications and Allergies Home Medications Medication Instructions Recorded Confirmed Type cyclosporine 0.05 % eye drops in a 1 drp OPHTH BID ##0 07/12/16 01/13/25 History dropperette (Restasis) aspirin 81 mg tablet,delayed 81 mg PO QDAY #90 tabs 10/07/17 01/13/25 Rx release melatonin 5 mg tablet 5 mg PO BEDTIME PRN Insomnia 02/10/19 01/13/25 History ferrous sulfate 325 mg (65 mg 325 mg PO DAILY #30 tabs 06/02/20 01/13/25 Rx iron) tablet sennosides 8.6 mg tablet (senna) 8.6 mg PO BID #30 tabs 12/05/20 01/13/25 Rx amlodipine 5 mg tablet 5 mg PO DAILY #90 tabs 04/29/24 01/13/25 Rx lisinopril 40 mg tablet 40 mg PO DAILY #90 tabs 05/27/24 01/13/25 Rx mirtazapine 30 mg tablet 30 mg PO ONCE PM #90 tabs 08/25/24 01/13/25 Rx rosuvastatin 10 mg tablet 10 mg PO DAILY #90 tabs 10/07/24 01/13/25 Rx doxepin 10 mg capsule 10 mg PO DAILY 11/30/24 01/13/25 History furosemide 40 mg tablet 40 mg DAILY 11/30/24 01/13/25 History metoprolol succinate 25 mg 25 mg PO DAILY #90 tabs 12/01/24 01/13/25 Rx tablet,extended release 24 hr Allergies Allergy/AdvReac Type Severity Reaction Status Date / Time No Known Drug Allergies Allergy Verified 01/13/25 13:49 Exam Vital Signs (past 8 hours): - 02/16/25 14:07 02/16/25 14:08 02/16/25 14:14 Temperature 97.8 F Pulse Rate 71 70 Respiratory Rate 19 Blood Pressure 142/87 H Pulse Oximetry 91 89 L Oxygen Delivery Method Nasal Cannula High Flow Nasal Cannula Oxygen Flow Rate 10 Fraction of Inspired Oxygen 02/16/25 14:14 02/16/25 14:30 02/16/25 14:30 Temperature Pulse Rate 69 69 Respiratory Rate 17 17 Blood Pressure 142/87 H Pulse Oximetry 88 L 94 Oxygen Delivery Method High Flow Nasal Cannula BiPAP Oxygen Flow Rate Fraction of Inspired Oxygen 0.50 02/16/25 14:35 02/16/25 14:35 02/16/25 15:00 Temperature Pulse Rate 70 63 Respiratory Rate 14 Blood Pressure 177/83 H Pulse Oximetry 96 94 Oxygen Delivery Method BiPAP BiPAP Oxygen Flow Rate Fraction of Inspired Oxygen 02/16/25 15:01 02/16/25 15:01 02/16/25 15:30 Temperature Pulse Rate 62 65 Respiratory Rate 12 Blood Pressure 160/80 H Pulse Oximetry 94 96 Oxygen Delivery Method BiPAP BiPAP Oxygen Flow Rate Fraction of Inspired Oxygen 02/16/25 15:31 02/16/25 15:31 Temperature Pulse Rate 65 Respiratory Rate 12 Blood Pressure 155/81 H Pulse Oximetry 96 Oxygen Delivery Method BiPAP Oxygen Flow Rate Fraction of Inspired Oxygen Fraction of Inspired Oxygen 0.50 Oxygen Delivery Method BiPAP Oxygen Flow Rate 10 Narrative Exam Narrative: General: Patient is a good historian he is on BiPAP. HEENT pupils equal round and reactive or mucosa is dry BiPAP is on patient's face Cardio S1-S2 some irregularity no appreciable heart murmurs Respiratory increased work of breathing. Some crackles throughout lung lung lou. With decreased aeration at lung bases. Abdomen distended nontender Extremities 2+ edema up past his knees. Warm dry perfused. Neurologic no focal neurological deficits Objective Labs 02/16/25 14:11 02/16/25 14:11 Labs: Laboratory Results - last 24 hr 02/16/25 02/16/25 02/16/25 14:00 14:11 14:14 WBC 8.2 RBC 3.75 L Hgb 12.2 L Hct 35.5 L MCV 94.6 MCH 32.6 MCHC 34.4 RDW 14.7 Plt Count 233 Neut % (Auto) 81.4 H Lymph % (Auto) 7.0 L [place] % (Auto) 11.0 Eos % (Auto) 0.2 L Baso % (Auto) 0.4 Neut # (Auto) 6700 Lymph # (Auto) 600 L [place] # (Auto) 900 Eos # (Auto) 0 Baso # (Auto) 0 PT 13.1 H INR 1.2 VBG pH VBG pCO2 VBG pO2 VBG HCO3 VBG Total CO2 VBG O2 Saturation VBG Base Excess FiO2 % Sodium 122 L Potassium 4.7 Chloride 84 L Carbon Dioxide 25 BUN 25 H Creatinine 1.18 Estimated GFR > 60 BUN/Creatinine Ratio 21.2 Glucose 106 H Lactate 1.2 Calcium 9.0 Total Bilirubin 0.6 AST 43 ALT 25 Alkaline Phosphatase 101 Troponin I < 0.012 NT-Pro-B Natriuret Pep 2540 H Total Protein 7.8 Albumin 4.8 Globulin 3.0 Albumin/Globulin Ratio 1.6 Procalcitonin 0.091 Chlamy pneumoniae PCR Not detected Adenovirus (PCR) Not detected B. pertussis DNA (PCR) Not detected B.parapertussis DNA PCR Not detected Coronavirus OC43 (PCR) Not detected Coronavirus HKU1 (PCR) Not detected Coronavirus 229E (PCR) Not detected SARS-CoV-2 (PCR) Not detected Coronavirus NL63 (PCR) Not detected Human Metapneumovir PCR Not detected Influenza Type A (PCR) Not detected Influenza Type B (PCR) Not detected M. pneumoniae (PCR) Not detected Parainfluenza 1 (PCR) Not detected Parainfluenza 2 (PCR) Not detected Parainfluenza 3 (PCR) Not detected Parainfluenza 4 (PCR) Not detected RSV (PCR) Not detected Entero/Rhino (PCR) Not detected 02/16/25 14:51 WBC RBC Hgb Hct MCV MCH MCHC RDW Plt Count Neut % (Auto) Lymph % (Auto) [place] % (Auto) Eos % (Auto) Baso % (Auto) Neut # (Auto) Lymph # (Auto) [place] # (Auto) Eos # (Auto) Baso # (Auto) PT INR VBG pH 7.42 VBG pCO2 43.0 L VBG pO2 41 VBG HCO3 28 VBG Total CO2 27 VBG O2 Saturation 77 H VBG Base Excess 2.8 FiO2 % 50.0 % Sodium Potassium Chloride Carbon Dioxide BUN Creatinine Estimated GFR BUN/Creatinine Ratio Glucose Lactate Calcium Total Bilirubin AST ALT Alkaline Phosphatase Troponin I NT-Pro-B Natriuret Pep Total Protein Albumin Globulin Albumin/Globulin Ratio Procalcitonin Chlamy pneumoniae PCR Adenovirus (PCR) B. pertussis DNA (PCR) B.parapertussis DNA PCR Coronavirus OC43 (PCR) Coronavirus HKU1 (PCR) Coronavirus 229E (PCR) SARS-CoV-2 (PCR) Coronavirus NL63 (PCR) Human Metapneumovir PCR Influenza Type A (PCR) Influenza Type B (PCR) M. pneumoniae (PCR) Parainfluenza 1 (PCR) Parainfluenza 2 (PCR) Parainfluenza 3 (PCR) Parainfluenza 4 (PCR) RSV (PCR) Entero/Rhino (PCR) Assessment & Plan Assessment and plan (1) Acute exacerbation of CHF (congestive heart failure): Qualifiers: Heart failure type: unspecified Qualified Code(s): I50.9 - Heart failure, unspecified Status: Acute (2) Atrial fibrillation, new onset: Status: Acute Plan Acute respiratory failure patient with acute respiratory failure due to most likely congestive heart failure exacerbation. Patient is on BiPAP. He is oxygenating well and appears to be looking a little bit better. Will continue with oxygen to maintain sats greater than 92. He will be given IV Lasix for diuresis. We will hold off on further Solu-Medrol and nebulizer treatments as he does not have a history of chronic lung disease. As he is responding to oxygen and IV diuresis we will hold off on basal dilator therapy for now. We will titrate oxygen to maintain saturations and continue with strong diuresis as the most probable problem is due to a pulmonary vascular edema. Acute decompensated congestive heart failure with preserved ejection fraction. Patient had an echocardiogram done in November. His troponin on admission to the hospital as negative. Has signs of edema consistent with the chest x-ray with pleural effusions lower extremity edema and signs of respiratory distress. We will continue with beta-darek. We are going to go ahead and hold his calcium channel darek we will continue with IV aggressive Lasix and throughout his hospital stay and make adjustments to his long-term medical management for heart failure with preserved ejection fraction. Atrial fibrillation new onset of atrial fibrillation based on his EKG today. Certainly could have contributed to his ongoing increasing shortness of breath and heart failure. His heart rate looks good he is on a beta-darek we will continue his beta-darek he is not on long-term anticoagulation. We will discuss that with him. Will start him on DVT prophylaxis Lasix. He does have a history of gastrointestinal bleeding with hemorrhage so will have to explore that more before we determine long-term anticoagulation status. Hyponatremia. Patient with hyponatremia sodium at 1:22 a.m.. Will go ahead and begin fluid restriction. They provide IV Lasix I think it is more delusional than anything else due to his increased edema. Will monitor electrolytes as we vigorously diurese him. We will also check potassium magnesium phosphorus. 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 Chronic and stable. No signs of reoccurrence Chronic renal failure stage 3. Patient's kidney function is normal. Will monitor closely kidney function here in the hospital as we continue to diurese him. Hypertension. Will continue with lisinopril and his beta-darek. Monitor for signs of hypotension with the diuresis that we are providing. Hyperlipidemia we will continue with statin therapy. DVT prophylaxis with Lovenox Code status full code Disposition and plan admission to the ICU because of BiPAP and pulmonary edema. Anticipate length of stay to be greater than 2 midnights Time-Based Coding :: [TOTAL MINUTES] spent with patient and on the chart (including review of chart, obtaining history, exam, reviewing outside data, placing orders, documenting exam and treatment plan, and counseling patient) on [DATE]. [employer] Document charge(s): Yes Charge Codes Initial inpatient/observation care: [id number]
[2025-02-16] MEDS: FUROSEMIDE 40 MG/4 ML VIAL IV ×2 (16:33→18:09)
--- NOTE | 2025-02-16 18:55 | PC.ADMIT ---
[address] Admission Note: Pt arrived via gurney, 6L NC without distress, connected to monitoring equipment, able to make needs known, bilateral IV patent, good blood return, whelan catheter in place and patent, clear, yellow urine noted. RT at bedside, connected pt to BIPAP, 10/5 50% FIO2, pt sats 91-93%, tolerating well. Oriented to room and call light system, call light in place. Care ongoing The patient,Chicho Will,84 y/o, was given written information regarding hospital policies, unit procedures and contact persons. Patient's smoking status: Never smoker. Vital Signs - 8 hr 02/16/25 14:07 02/16/25 14:08 02/16/25 14:14 Temperature 97.8 F Pulse Rate 71 70 Respiratory Rate 19 Blood Pressure 142/87 H Pulse Oximetry 91 89 L Oxygen Delivery Method Nasal Cannula High Flow Nasal Cannula Oxygen Flow Rate 10 Fraction of Inspired Oxygen 02/16/25 14:14 02/16/25 14:30 02/16/25 14:30 Temperature Pulse Rate 69 69 Respiratory Rate 17 17 Blood Pressure 142/87 H Pulse Oximetry 88 L 94 Oxygen Delivery Method High Flow Nasal Cannula BiPAP Oxygen Flow Rate Fraction of Inspired Oxygen 0.50 02/16/25 14:35 02/16/25 14:35 02/16/25 15:00 Temperature Pulse Rate 70 63 Respiratory Rate 14 Blood Pressure 177/83 H Pulse Oximetry 96 94 Oxygen Delivery Method BiPAP BiPAP Oxygen Flow Rate Fraction of Inspired Oxygen 02/16/25 15:01 02/16/25 15:01 02/16/25 15:30 Temperature Pulse Rate 62 65 Respiratory Rate 12 Blood Pressure 160/80 H Pulse Oximetry 94 96 Oxygen Delivery Method BiPAP BiPAP Oxygen Flow Rate Fraction of Inspired Oxygen 02/16/25 15:31 02/16/25 15:31 02/16/25 16:00 Temperature Pulse Rate 65 59 L Respiratory Rate 12 8 L Blood Pressure 155/81 H Pulse Oximetry 96 97 Oxygen Delivery Method BiPAP Oxygen Flow Rate Fraction of Inspired Oxygen 02/16/25 16:01 02/16/25 16:01 02/16/25 16:30 Temperature Pulse Rate 61 78 Respiratory Rate 8 L 17 Blood Pressure 122/66 Pulse Oximetry 97 93 Oxygen Delivery Method Room Air Oxygen Flow Rate Fraction of Inspired Oxygen 02/16/25 16:30 02/16/25 16:38 02/16/25 17:00 Temperature Pulse Rate 65 Respiratory Rate 17 Blood Pressure 146/80 H 146/80 H Pulse Oximetry 97 95 Oxygen Delivery Method Oxygen Flow Rate Fraction of Inspired Oxygen 0.50 02/16/25 17:00 02/16/25 17:01 02/16/25 17:01 Temperature 99.1 F Pulse Rate 76 Respiratory Rate 16 Blood Pressure 169/77 H Pulse Oximetry 96 Oxygen Delivery Method Oxygen Flow Rate Fraction of Inspired Oxygen 02/16/25 17:30 02/16/25 17:31 02/16/25 17:31 Temperature Pulse Rate 71 73 Respiratory Rate 16 20 Blood Pressure 168/85 H Pulse Oximetry 94 95 Oxygen Delivery Method Oxygen Flow Rate Fraction of Inspired Oxygen 02/16/25 17:40 Temperature Pulse Rate Respiratory Rate Blood Pressure Pulse Oximetry Oxygen Delivery Method BiPAP Oxygen Flow Rate Fraction of Inspired Oxygen
[2025-02-16 19:05] LABS: MRSA (Nasal) PCR NOT DETECTED (Not Detect)
[2025-02-16] MEDS: ATORVASTATIN 20 MG TABLET PO (20:18)
[2025-02-16] MEDS: MIRTAZAPINE 15 MG TABLET 30 MG PO (20:18)
[2025-02-16] MEDS: SODIUM CHLORIDE 0.9% FLUSH 10 ML IV (20:23)
[2025-02-17] VITALS (62 sets, daily range): BP systolic 101–159; BP diastolic 60–95; PULSE 46–87; RESP 7–26; TEMP 36.3–36.8; O2SAT 89–99
[2025-02-17] MEDS: FUROSEMIDE 40 MG/4 ML VIAL IV ×4 (00:13→17:56)
--- NOTE | 2025-02-17 05:00 | DI.RAD.S_ITS ---
PROCEDURE: XR CHEST 1V INDICATIONS: chf short of breath TECHNIQUE: One view of the chest was acquired. COMPARISON: [facility], CR, XR CHEST 1V, 02/16/2025, 14:33. [facility], CR, XR CHEST 1V, 11/29/2024, 22:34. FINDINGS: Surgical changes and devices: Post median sternotomy. Abdominal clips. Lungs and pleura: Diffuse prominent pulmonary markings. Not significantly changed. Trace pleural effusions. No pneumothorax. Mediastinum: Mediastinal contours appear normal. Heart size is normal. Bones and chest wall: No suspicious bony lesions. Overlying soft tissues appear unremarkable. IMPRESSION: Fluid overload/CHF. Not significantly changed. Dictated by: Elbert Kasper M.D. on 02/17/2025 at 23:30 Approved by: Elbert Kasper M.D. on 02/17/2025 at 23:32
[2025-02-17 05:19] LABS: Add Manual Diff / Slide Review NO; Basophils Absolute Auto 0 /uL (0-100); Basophils Percent Auto 0.5 % (0-2); Eosinophils Absolute Auto 0 /uL (0-450); Hematocrit 33.4 % (41-53); Hemoglobin 11.6 g/dL (13.5-17.5); Lymphocytes Absolute Auto 300 /uL (1100-4500); Lymphocytes Percent Auto 8.7 % (25-40); Mean Corpuscular HGB Conc 34.7 % (30-36); Mean Corpuscular Hemoglobin 32.9 PG (26-34); Mean Corpuscular Volume 94.8 fL (80-100); Monocytes Absolute Auto 100 /uL (0-900); Monocytes Percent Auto 2.5 % (3-14); Neutrophils Absolute Auto 3500 /uL (1500-7000); Neutrophils Percent Auto 88.3 % (50-75); Platelet Count 199 X10^3/uL (150-400); Red Blood Cell Count 3.53 X10^6/uL (4.5-5.9); Red Cell Distribution Width 14.4 % (11.6-14.8)
[2025-02-17 05:28] LABS: Alanine Aminotransferase 23 IU/L (<50); Albumin 4.2 g/dL (3.5-5.0); Albumin Globulin Ratio 1.5 (1.0-2.8); Alkaline Phosphatase 82 U/L (38-126); Aspartate Aminotransferase 32 IU/L (17-59); BUN Creatinine Ratio 23.3 (6-22); Bilirubin Total 0.4 mg/dL (0.2-1.3); Blood Urea Nitrogen 28 mg/dL (9-20); Calcium 8.4 mg/dL (8.4-10.2); Carbon Dioxide 30 mmol/L (22-32); Chloride 82 mmol/L (98-107); Estimated Glomerular Filt Rate 60 mL/min (>60); Globulin 2.8 g/dL (1.7-4.1); Glucose 161 mg/dL (70-99); HEMOLYSIS < 15 (0-50); Magnesium 1.8 mg/dL (1.6-2.3); Phosphorous 5.1 mg/dL (2.3-3.7); Potassium 4.3 mmol/L (3.4-5.1); Sodium 122 mmol/L (137-145)
[2025-02-17 05:39] LABS: Troponin I < 0.012 ng/mL (0.01-0.034)
[2025-02-17] MEDS: lisinopriL 20 MG TABLET 40 MG PO (08:19)
[2025-02-17] MEDS: ENOXAPARIN 40 MG/0.4 ML SYRINGE SUBCUT (08:20)
[2025-02-17] MEDS: ASPIRIN EC 81 MG TABLET PO (08:20)
[2025-02-17] MEDS: METOPROLOL ER 25 MG TABLET PO (08:20)
[2025-02-17] MEDS: SODIUM CHLORIDE 0.9% FLUSH 10 ML IV ×2 (08:21→21:57)
--- NOTE | 2025-02-17 08:47 | P.PN_ITS ---
Subjective Subjective Date Patient Seen: 02/17/25 Time Patient Seen: 08:47 Interval history: Patient seen and evaluated this morning patient is eating breakfast on nasal cannula oxygen 6 L saturating 99%. He has increased work of breathing he says he is just fine. Said he did not sleep well last night. He was on BiPAP throughout the evening he tolerates that well. He asks about going home. Certainly not ready there. Discussed care with nursing staff vital signs have been reviewed. Hypoxic overnight. Blood pressure is been a little bit hypertensive. Not tachycardic. Has a Abad catheter in had 1600 cc of urine output last night. Exam Vital Signs (past 8 hours): - 02/17/25 01:00 02/17/25 01:00 02/17/25 01:00 Temperature Pulse Rate 71 Respiratory Rate 12 Blood Pressure Pulse Oximetry 95 Oxygen Delivery Method BiPAP Fraction of Inspired Oxygen 0.5 02/17/25 01:01 02/17/25 01:01 02/17/25 01:30 Temperature Pulse Rate 87 62 Respiratory Rate 21 9 L Blood Pressure 156/83 H Pulse Oximetry 98 98 Oxygen Delivery Method Fraction of Inspired Oxygen 02/17/25 02:00 02/17/25 02:00 02/17/25 02:30 Temperature Pulse Rate 62 56 L Respiratory Rate 7 L 7 L Blood Pressure 133/73 Pulse Oximetry 98 99 Oxygen Delivery Method Fraction of Inspired Oxygen 02/17/25 03:00 02/17/25 03:01 02/17/25 03:01 Temperature Pulse Rate 68 69 Respiratory Rate 12 14 Blood Pressure 156/85 H Pulse Oximetry 99 98 Oxygen Delivery Method Fraction of Inspired Oxygen 02/17/25 03:30 02/17/25 04:00 02/17/25 04:00 Temperature Pulse Rate 63 62 Respiratory Rate 12 9 L Blood Pressure 141/73 H Pulse Oximetry 98 97 Oxygen Delivery Method Fraction of Inspired Oxygen 02/17/25 04:30 02/17/25 05:00 02/17/25 05:00 Temperature Pulse Rate 63 62 Respiratory Rate 9 L 8 L Blood Pressure 152/72 H Pulse Oximetry 98 98 Oxygen Delivery Method Fraction of Inspired Oxygen 02/17/25 05:03 02/17/25 05:30 02/17/25 05:34 Temperature Pulse Rate 63 Respiratory Rate 13 Blood Pressure Pulse Oximetry 99 Oxygen Delivery Method BiPAP Fraction of Inspired Oxygen 0.5 02/17/25 06:00 02/17/25 06:00 02/17/25 06:30 Temperature Pulse Rate 63 61 Respiratory Rate 12 8 L Blood Pressure 152/82 H Pulse Oximetry 96 98 Oxygen Delivery Method Fraction of Inspired Oxygen 02/17/25 07:00 02/17/25 07:00 02/17/25 07:00 Temperature 98.3 F Pulse Rate 64 Respiratory Rate 9 L Blood Pressure 141/77 H Pulse Oximetry 97 Oxygen Delivery Method Fraction of Inspired Oxygen 02/17/25 07:30 02/17/25 08:00 02/17/25 08:00 Temperature Pulse Rate 62 68 Respiratory Rate 7 L 21 Blood Pressure 144/70 H Pulse Oximetry 98 97 Oxygen Delivery Method Fraction of Inspired Oxygen 02/17/25 08:20 02/17/25 08:30 Temperature Pulse Rate 67 69 Respiratory Rate 17 Blood Pressure Pulse Oximetry 96 Oxygen Delivery Method Fraction of Inspired Oxygen Fraction of Inspired Oxygen 0.5 Oxygen Delivery Method BiPAP Oxygen Flow Rate 0 Narrative Exam Narrative: Gen.: Alert some intermittent confusion HEENT: Pupils equal round and reactive or mucosa is moist Cardio: S1-S2 irregular rate and rhythm Respiratory: Rhonchorous breath sounds with increased work of breathing Abdomen: Soft mild distention no tenderness Extremities: 2+ lower extremity edema Neurologic: No focal neurological deficits Objective Labs 02/17/25 04:40 02/17/25 04:40 Labs: Laboratory Results - last 24 hr 02/16/25 02/16/25 02/16/25 14:00 14:11 14:14 WBC 8.2 RBC 3.75 L Hgb 12.2 L Hct 35.5 L MCV 94.6 MCH 32.6 MCHC 34.4 RDW 14.7 Plt Count 233 Neut % (Auto) 81.4 H Lymph % (Auto) 7.0 L [place] % (Auto) 11.0 Eos % (Auto) 0.2 L Baso % (Auto) 0.4 Neut # (Auto) 6700 Lymph # (Auto) 600 L [place] # (Auto) 900 Eos # (Auto) 0 Baso # (Auto) 0 PT 13.1 H INR 1.2 VBG pH VBG pCO2 VBG pO2 VBG HCO3 VBG Total CO2 VBG O2 Saturation VBG Base Excess FiO2 % Sodium 122 L Potassium 4.7 Chloride 84 L Carbon Dioxide 25 BUN 25 H Creatinine 1.18 Estimated GFR > 60 BUN/Creatinine Ratio 21.2 Glucose 106 H Lactate 1.2 Calcium 9.0 Phosphorus Magnesium Total Bilirubin 0.6 AST 43 ALT 25 Alkaline Phosphatase 101 Troponin I < 0.012 NT-Pro-B Natriuret Pep 2540 H Total Protein 7.8 Albumin 4.8 Globulin 3.0 Albumin/Globulin Ratio 1.6 Procalcitonin 0.091 Nasal Screen MRSA (PCR) Chlamy pneumoniae PCR Not detected Adenovirus (PCR) Not detected B. pertussis DNA (PCR) Not detected B.parapertussis DNA PCR Not detected Coronavirus OC43 (PCR) Not detected Coronavirus HKU1 (PCR) Not detected Coronavirus 229E (PCR) Not detected SARS-CoV-2 (PCR) Not detected Coronavirus NL63 (PCR) Not detected Human Metapneumovir PCR Not detected Influenza Type A (PCR) Not detected Influenza Type B (PCR) Not detected M. pneumoniae (PCR) Not detected Parainfluenza 1 (PCR) Not detected Parainfluenza 2 (PCR) Not detected Parainfluenza 3 (PCR) Not detected Parainfluenza 4 (PCR) Not detected RSV (PCR) Not detected Entero/Rhino (PCR) Not detected 02/16/25 02/16/25 02/17/25 14:51 17:41 04:40 WBC 4.0 L D RBC 3.53 L Hgb 11.6 L Hct 33.4 L MCV 94.8 MCH 32.9 MCHC 34.7 RDW 14.4 Plt Count 199 Neut % (Auto) 88.3 H Lymph % (Auto) 8.7 L [place] % (Auto) 2.5 L Eos % (Auto) 0.0 L Baso % (Auto) 0.5 Neut # (Auto) 3500 Lymph # (Auto) 300 L [place] # (Auto) 100 Eos # (Auto) 0 Baso # (Auto) 0 PT INR VBG pH 7.42 VBG pCO2 43.0 L VBG pO2 41 VBG HCO3 28 VBG Total CO2 27 VBG O2 Saturation 77 H VBG Base Excess 2.8 FiO2 % 50.0 % Sodium 122 L Potassium 4.3 Chloride 82 L Carbon Dioxide 30 BUN 28 H Creatinine 1.20 Estimated GFR 60 BUN/Creatinine Ratio 23.3 H Glucose 161 H Lactate Calcium 8.4 Phosphorus 5.1 H Magnesium 1.8 Total Bilirubin 0.4 AST 32 ALT 23 Alkaline Phosphatase 82 Troponin I < 0.012 NT-Pro-B Natriuret Pep Total Protein 7.0 Albumin 4.2 Globulin 2.8 Albumin/Globulin Ratio 1.5 Procalcitonin Nasal Screen MRSA (PCR) Not detected Chlamy pneumoniae PCR Adenovirus (PCR) B. pertussis DNA (PCR) B.parapertussis DNA PCR Coronavirus OC43 (PCR) Coronavirus HKU1 (PCR) Coronavirus 229E (PCR) SARS-CoV-2 (PCR) Coronavirus NL63 (PCR) Human Metapneumovir PCR Influenza Type A (PCR) Influenza Type B (PCR) M. 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) Status post nephrectomy (02/02/15) Neoplasm of kidney (12/01/14) Hyperlipidemia (02/27/11) Essential hypertension (02/27/11) Surgical History History of kidney removal Anesthesia Surgical procedure planned (~09/2014) History of nephrectomy (11/25/14) Social History marital status: household members: none Smoking Status: Never smoker alcohol intake: current substance use type: does not use Assessment & Plan Assessment and plan (1) Acute exacerbation of CHF (congestive heart failure): Qualifiers: Heart failure type: unspecified Qualified Code(s): I50.9 - Heart failure, unspecified Status: Acute Plan Acute respiratory failure due to underlying congestive heart failure BiPAP last night with intermittent nasal cannula oxygen saturations are well. Increasing diuresis with Lasix still has rhonchorous breath sounds. Heart failure with preserved ejection fraction with acute exacerbation. Patient's chest x-ray shows pleural effusions pulmonary congestion patient has 2+ edema. Patient will be continued with IV Lasix 40 mg Q 6 hours. He will be started on spironolactone. He will be continued with his LISA inhibitor and beta-darek. Consider starting Jardiance. Atrial fibrillation new diagnosis. Heart rates well controlled. He is on beta- darek therapy. He is not fully anticoagulated. History of gastrointestinal bleeding previously with anticoagulation. Hyponatremia. Patient is hyponatremic probably delusional.. Will continue with diuresis fluid restriction. Liberalize salt in diet. Continue to monitor other electrolytes. 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 Chronic and stable. No signs of reoccurrence Chronic renal failure stage 3. Patient had mild elevation of his BUN today. Monitor kidney function. Hypertension. Will continue with lisinopril and his beta-darek. Mildly hypertensive. Start spironolactone Hyperlipidemia we will continue with statin therapy. DVT prophylaxis with Lovenox Code status full code Disposition and plan continue with diuresis today. Start spironolactone. Time-Based Coding :: [TOTAL MINUTES] spent with patient and on the chart (including review of chart, obtaining history, exam, reviewing outside data, placing orders, documenting exam and treatment plan, and counseling patient) on [DATE]. PROFEE Signal Wirer Document charge(s): Yes Charge Codes Subsequent inpatient/observation care: [id number]
[2025-02-17] MEDS: SPIRONOLACTONE 25 MG TABLET PO ×2 (09:22→17:16)
[2025-02-17] MEDS: BISACODYL 10 MG SUPP PR (09:45)
[2025-02-17] MEDS: SENNOSIDES 8.6 MG TABLET PO ×2 (09:45→20:44)
[2025-02-17] MEDS: ALBUTEROL 2.5 MG/3 ML NEB (ADULT) INH (10:31)
--- NOTE | 2025-02-17 11:46 | PC.NURSE ---
PT HEART RATE AFIB DROPPING LOW [address] ISLAS MADE AWARE. NO NEW ORDERS.
--- NOTE | 2025-02-17 15:23 | CM.DANOTE ---
Initial DCP Assessment Note Pt is a 84 yo male, resident of [place], arrives from home with SOB/weakness- admitted by Dr Solorzano for management of acute exacerbation of CHF. PCP: Stoney Solorzano Payer: [facility]/[employer] Reviewed chart, pt discussed in multidisciplinary rounds this morning. Patient hypoxic overnight. diuresis today. Start spironolactone according to Dr Solorzano's prog note. Patient lives alone, independently. No hx of HH- has refused in the past. Historically, patient directs his own care. No barriers identified at this time to patient's discharge home when medically stable. CM team will plan to follow clinical course closely in case any DC needs or concerns arise. ANAY Keenan Discharge Planning/Care Management CM Discharge Assessment Start: 02/16/25 16:30 Freq: Status: Active Protocol: Document 02/17/25 15:21 ROSE (Rec: 02/17/25 15:23 ROSE [id number]) Discharge Planning Assessment Assigned Cra ANAY Hamilton DPOA/Assigned Designee Name Delilah Cadena (daughter in [place]) Contact Information delilah: [phone] Advance Directives? Yes Advance Directives on File No History Provided By Patient,Medical Record Has Patient been admitted in last 30 No days? Prior Living Arrangements House Household Members none Type of transporation used prior to Drives own vehicle admit Independent with ADL's Yes Is patient alert and oriented? Yes Barriers to Discharge No Discharge Plan Home Transportation Arrangement friend/neighbor Referrals Initiated None needed
[2025-02-17] MEDS: BUMETANIDE 1 MG/4 ML VIAL 0.5 MG IV (15:26)
--- NOTE | 2025-02-17 17:04 | PC.NURSE ---
DR ISLAS AT BEDSIDE. AWARE OF PT WITH CONTINUED MINIMAL URINE OUTPUT. SCANNED BLADDER TO VERIFY. PER MD, CONTINUE DIURETICS SCHEDULED.
--- NOTE | 2025-02-17 18:17 | PC.NURSE ---
PT REMAINED A/OX4 WITH STABLE VITALS THROUGHOUT SHIFT. PATIENT OFF BIPAP AT 1230 TO 6LNC WITH NO C/O SOB. CONTINUED WHEEZE THROUGHOUT SHIFT AND MINIMAL URINE OUTPUT AFTER 1200 LASIX. BLADDER SCANNED TO VERIFY NO URINE IN BLADDER. PATIENT HEART RATE DROPPED LOW 39 IN AFIB AROUND 1100, HOWEVER ASYMPTOMATIC. DR ISLAS AWARE OF ALL EVENTS AND MINIMAL URINE OUTPUT DESPITE LASIX/ BUMEX (1200 ML TOTAL). ORDERED STEROIDS AND REQUESTS TO CONTINUE DIURETICS ORDERED. PLAN TO RECHECK RENAL FUNCTION IN AM.
[2025-02-17] MEDS: MIRTAZAPINE 15 MG TABLET 30 MG PO (20:44)
[2025-02-17] MEDS: ATORVASTATIN 20 MG TABLET PO (20:44)
[2025-02-18] VITALS (59 sets, daily range): BP systolic 94–166; BP diastolic 53–94; PULSE 39–151; RESP 5–51; TEMP 36–36.4; O2SAT 81–99
[2025-02-18] MEDS: FUROSEMIDE 40 MG/4 ML VIAL IV ×2 (00:15→05:54)
[2025-02-18 05:29] LABS: Add Manual Diff / Slide Review NO; Basophils Absolute Auto 0 /uL (0-100); Basophils Percent Auto 0.5 % (0-2); Eosinophils Absolute Auto 0 /uL (0-450); Eosinophils Percent Auto 0.1 % (2-4); Hematocrit 33.3 % (41-53); Hemoglobin 11.5 g/dL (13.5-17.5); Lymphocytes Absolute Auto 400 /uL (1100-4500); Lymphocytes Percent Auto 7.7 % (25-40); Mean Corpuscular HGB Conc 34.4 % (30-36); Mean Corpuscular Hemoglobin 32.9 PG (26-34); Mean Corpuscular Volume 95.6 fL (80-100); Monocytes Absolute Auto 400 /uL (0-900); Monocytes Percent Auto 6.6 % (3-14); Neutrophils Absolute Auto 4700 /uL (1500-7000); Neutrophils Percent Auto 85.1 % (50-75); Platelet Count 215 X10^3/uL (150-400); Red Blood Cell Count 3.49 X10^6/uL (4.5-5.9); Red Cell Distribution Width 15.1 % (11.6-14.8); White Blood Cell Count 5.5 X10^3/uL (4.5-11.0)
[2025-02-18 06:21] LABS: Alanine Aminotransferase 22 IU/L (<50); Albumin 4.2 g/dL (3.5-5.0); Albumin Globulin Ratio 1.8 (1.0-2.8); Alkaline Phosphatase 74 U/L (38-126); Aspartate Aminotransferase 33 IU/L (17-59); BUN Creatinine Ratio 26.7 (6-22); Bilirubin Total 0.4 mg/dL (0.2-1.3); Blood Urea Nitrogen 43 mg/dL (9-20); Calcium 8.4 mg/dL (8.4-10.2); Carbon Dioxide 33 mmol/L (22-32); Chloride 81 mmol/L (98-107); Estimated Glomerular Filt Rate 42 mL/min (>60); Globulin 2.3 g/dL (1.7-4.1); Glucose 161 mg/dL (70-99); HEMOLYSIS < 15 (0-50); Potassium 4.4 mmol/L (3.4-5.1); Sodium 123 mmol/L (137-145); Total Protein 6.5 g/dL (6.3-8.2)
[2025-02-18] MEDS: METOPROLOL ER 25 MG TABLET PO (09:04)
[2025-02-18] MEDS: ASPIRIN EC 81 MG TABLET PO (09:04)
[2025-02-18] MEDS: SODIUM CHLORIDE 0.9% FLUSH 10 ML IV ×2 (09:04→22:02)
[2025-02-18] MEDS: lisinopriL 20 MG TABLET 40 MG PO (09:05)
[2025-02-18] MEDS: SENNOSIDES 8.6 MG TABLET PO ×2 (09:05→22:00)
[2025-02-18] MEDS: SPIRONOLACTONE 25 MG TABLET PO ×2 (09:05→16:44)
--- NOTE | 2025-02-18 09:16 | P.PN_ITS ---
Subjective Subjective Date Patient Seen: 02/18/25 Time Patient Seen: 09:16 Interval history: Patient seen this morning. Says he wants to go home had a bad night sleep last night. He says he has been here all week. He has been here for 2 days. Still requiring oxygen and has some rhonchorous breath sounds he is eating. Has a Abad catheter in. Diuresis yesterday. Moderately successful. Did not diuresis much as we would like. Increasing kidney function today. Vital signs have been stable he is not significantly tachycardic blood pressure looks good. Still quite hypoxic. Exam Vital Signs (past 8 hours): - 02/18/25 01:30 02/18/25 01:30 02/18/25 02:00 Pulse Rate 61 Respiratory Rate 11 L Blood Pressure 136/79 138/85 Pulse Oximetry 95 Oxygen Delivery Method 02/18/25 02:00 02/18/25 02:30 02/18/25 02:30 Pulse Rate 59 L 51 L Respiratory Rate 12 9 L Blood Pressure 144/76 H Pulse Oximetry 97 97 Oxygen Delivery Method 02/18/25 03:00 02/18/25 03:00 02/18/25 03:30 Pulse Rate 58 L Respiratory Rate 16 Blood Pressure 139/81 148/82 H Pulse Oximetry 95 Oxygen Delivery Method 02/18/25 03:30 02/18/25 04:00 02/18/25 04:00 Pulse Rate 63 65 Respiratory Rate 18 17 Blood Pressure 157/86 H Pulse Oximetry 95 95 Oxygen Delivery Method 02/18/25 04:00 02/18/25 04:30 02/18/25 04:30 Pulse Rate 60 Respiratory Rate 9 L Blood Pressure 152/84 H Pulse Oximetry 98 Oxygen Delivery Method High Flow Nasal Cannula 02/18/25 05:00 02/18/25 05:00 02/18/25 05:30 Pulse Rate 57 L Respiratory Rate 9 L Blood Pressure 144/94 H 124/88 Pulse Oximetry 98 Oxygen Delivery Method 02/18/25 05:30 02/18/25 06:00 02/18/25 06:00 Pulse Rate 74 62 Respiratory Rate 28 H 9 L Blood Pressure 123/75 Pulse Oximetry 99 99 Oxygen Delivery Method 02/18/25 07:00 02/18/25 07:30 02/18/25 09:04 Pulse Rate 68 67 71 Respiratory Rate 23 10 L Blood Pressure 131/67 Pulse Oximetry 99 93 Oxygen Delivery Method 02/18/25 09:05 Pulse Rate 71 Respiratory Rate Blood Pressure 131/67 Pulse Oximetry Oxygen Delivery Method Fraction of Inspired Oxygen 40 Oxygen Delivery Method High Flow Nasal Cannula Oxygen Flow Rate 6 Narrative Exam Narrative: Gen.: Alert somewhat anxious HEENT: Pupils equal round and reactive to light oral mucosa is moist neck is supple Cardio: S1-S2 irregular rhythm Respiratory: Rhonchorous breath sounds with mild increased work of breathing Abdomen: Soft non painful mild distention Extremities: 2 to 3+ edema Objective Labs 02/18/25 05:19 02/18/25 05:19 Labs: Laboratory Results - last 24 hr 02/18/25 05:19 WBC 5.5 RBC 3.49 L Hgb 11.5 L Hct 33.3 L MCV 95.6 MCH 32.9 MCHC 34.4 RDW 15.1 H Plt Count 215 Neut % (Auto) 85.1 H Lymph % (Auto) 7.7 L [place] % (Auto) 6.6 Eos % (Auto) 0.1 L Baso % (Auto) 0.5 Neut # (Auto) 4700 Lymph # (Auto) 400 L [place] # (Auto) 400 Eos # (Auto) 0 Baso # (Auto) 0 Sodium 123 L Potassium 4.4 Chloride 81 L Carbon Dioxide 33 H BUN 43 H Creatinine 1.61 H Estimated GFR 42 L BUN/Creatinine Ratio 26.7 H Glucose 161 H Calcium 8.4 Total Bilirubin 0.4 AST 33 ALT 22 Alkaline Phosphatase 74 Total Protein 6.5 Albumin 4.2 Globulin 2.3 Albumin/Globulin Ratio 1.8 [facility] Medical History Melanoma 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 Hyponatremia TIA (transient ischemic attack) Scoliosis (~09/2014) Rosacea Mumps Measles Chicken pox Tinnitus Hearing loss Cataract (~09/2012) Kidney disease (~12/2014) Peripheral vascular disease (~12/2014) Hypertension Melanoma (~09/2014) Diverticulosis of large intestine without hemorrhage (01/13/18) Anxiety (06/26/17) 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) Status post nephrectomy (02/02/15) Neoplasm of kidney (12/01/14) Hyperlipidemia (02/27/11) Essential hypertension (02/27/11) Surgical History History of kidney removal Anesthesia Surgical procedure planned (~09/2014) History of nephrectomy (11/25/14) Social History marital status: household members: none Smoking Status: Never smoker alcohol intake: current substance use type: does not use Assessment & Plan Assessment and plan (1) Acute exacerbation of CHF (congestive heart failure): Qualifiers: Heart failure type: unspecified Qualified Code(s): I50.9 - Heart failure, unspecified Status: Acute Plan Acute respiratory failure patient is still requiring nasal cannula oxygen intermittent BiPAP. If tolerated. Possible cause of respiratory distress due to pleural effusions and pulmonary edema possibly due to congestive heart failure. Not responding to typical diuresis. I will order a to do CT scan of chest tomorrow. Continue with oral diuresis and stop IV diuresis oxygen per nasal cannula and BiPAP as tolerated. Heart failure with preserved ejection fraction with acute exacerbation. Patient with signs and symptoms consistent with heart failure elevated BNP. Last echocardiogram was 3 months ago it was limited. I am going to repeat his echocardiogram today. Switch from dye IV diuresis to oral diuresis because of increasing kidney function. Not responding with typical diuresis therapy possibly due to single kidney. Would like to look at alternative causes of edema and pleural effusion. Atrial fibrillation new diagnosis. Heart rate well controlled on aspirin Lovenox. Not on full-strength anticoagulation because history of gastrointestinal bleeding. Hyponatremia. Patient with hyponatremia continue with fluid restriction. Patient is not on normal saline because of fluid overload status. Continue to monitor sodium. See if this improves with continued diuresis orally. 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 Chronic and stable. No signs of reoccurrence Chronic renal failure stage 3. Increasing creatinine levels due to diuresis. Will hold IV diuresis today continue with oral diuretics. Continue to monitor kidney and electrolytes. Hypertension. Will continue with lisinopril and his beta-darek. Mildly hypertensive. Start spironolactone Hyperlipidemia we will continue with statin therapy. DVT prophylaxis with Lovenox Code status full code Still hypoxic requiring oxygen some mild agitation provide lorazepam repeat echocardiogram hold IV diuretics continue with oral diuretics because of increasing BUN and creatinine. Looking for alternative sources of pleural effusions with CT scan of chest tomorrow. Care discussed with patient and daughter daughter updated. Time-Based Coding :: [TOTAL MINUTES] spent with patient and on the chart (including review of chart, obtaining history, exam, reviewing outside data, placing orders, documenting exam and treatment plan, and counseling patient) on [DATE]. PROFEE Electrical Instrument Maker Document charge(s): Yes Charge Codes Subsequent inpatient/observation care: [id number]
[2025-02-18] MEDS: CARBOXYMETHYLCELLULOSE DROPS 1 DROPS EYE-BOTH (09:37)
[2025-02-18] MEDS: LORazepam 1 MG TABLET PO ×3 (09:37→22:02)
[2025-02-18] MEDS: BISACODYL 10 MG SUPP PR (09:38)
--- NOTE | 2025-02-18 10:53 | DI.ECHO.S_ITS ---
[place] [facility]+ [facility] : : [address] : [place] [address] : : [id number] : : Phone: [phone] Echocardiogram Report + + :Name: JASON GONZALEZ Study Date: 02/18/2025 Height: 71 in : :[facility] ReadingLocation: Weight: 244 lb : : Gender: Male BSA: 2.3 m2 : :: 1940 Age: 84 yrs BP: 166/76 mmHg: :Reason For Study: ELEVATED BNP, PLEURAL EFFUSION, CONGESTIVE : :HEART FAILURE : :Ordering Physician: JANEL : :TRUDY Performed By: Fabiola Alvarenga : :Referring: TRUDY ISLAS : + + Interpretation Summary The ejection fraction is estimated to be 50-55%. The right ventricle is moderately dilated. Right ventricular systolic function is mildly reduced. There is moderate tricuspid regurgitation. The right ventricular systolic pressure is estimated to be at least 49 mmHg based on an estimated right atrial pressure of 15 mm Hg. There is mild mitral regurgitation. Compared to the prior echo exam, there has been an increase in TR severity. Compared to the prior echo exam, there has been an increase in the severity of pulmonary hypertension. Procedure: A two-dimensional transthoracic echocardiogram with color flow and Doppler was performed. The study quality was technically difficult. Comparison is made with the echocardiogram of 11/30/2024. The patient was in atrial fibrillation with heart rates between 47-65 bpm during the exam. Left Ventricle: The left ventricle is normal in size and wall thickness. The ejection fraction is estimated to be 50-55%. There are no focal wall motion abnormalities. Diastolic function could not be accurately assessed due to atrial fibrillation. Right Ventricle: The right ventricle is moderately dilated. Right ventricular systolic function is mildly reduced. Atria: The left atrium is moderately dilated. The right atrium is moderately dilated. There is no Doppler evidence for an interatrial shunt. Mitral Valve: The mitral valve leaflets appear mildly thickened, but open well. There is no mitral valve stenosis. There is mild mitral regurgitation. Aortic Valve: There is minimally reduced leaflet mobility. There is no aortic valve stenosis. No aortic regurgitation is present. Tricuspid Valve: The tricuspid valve leaflets are thin and pliable. There is moderate tricuspid regurgitation. The right ventricular systolic pressure is estimated to be at least 49 mmHg based on an estimated right atrial pressure of 15 mm Hg. Compared to the prior echo exam, there has been an increase in TR severity. Compared to the prior echo exam, there has been an increase in the severity of pulmonary hypertension. Pulmonic Valve: The pulmonic valve is not well visualized. There is no pulmonic valvular regurgitation. Great Vessels: The aortic root is normal size. The dimensions of the ascending aorta are normal. The IVC is dilated (diameter is greater than 2.1 cm) and it collapses less than 50% with a sniff. This suggests a high right atrial pressure of 15 mm Hg. Pericardium/ Pleura There is no pericardial effusion. There is a left pleural effusion present. MMode/2D Measurements & Calculations LVIDd: 4.9 cm LVOT diam: 2.1 cm LVIDs: 3.4 cm Ao root diam: 3.2 cm FS: 30.6 % asc Aorta Diam: 3.1 cm IVSd: 0.94 cm LVPWd: 0.93 cm LV mulligan. diameter/BSA (cm/m^2): 2.1 LV sys. diameter/BSA (cm/m^2): 1.5 LA A2 area: 27.8 cm2 RA long axis: 5.8 cm LA A4 area: 26.4 cm2 RA area: 23.8 cm2 LA length (vol): 6.0 cm RA vol: 83.6 ml LA vol: 103.6 ml RA : 36.4 ml/m2 LA vol index: 45.1 ml/m2 IVC diam: 3.7 cm RVD1 (basal): 5.0 cm RVD2 (mid): 4.1 cm TAPSE: 1.5 cm Doppler Measurements & Calculations Ao V2 max: 133.1 cm/sec LVOT Max Cortez: 82.7 cm/sec Ao V2 mean: 87.2 cm/sec LV V1 max P.7 mmHg Ao max P.5 mmHg LV V1 VTI: 16.9 cm Ao mean P.6 mmHg SUHAIL(I,D): 2.1 cm2 Ao V2 VTI: 28.6 cm SUHAIL(V,D): 2.2 cm2 sev ratio: 0.59 SUHAIL indexed to BSA (cm^2/m^2): 0.91 MV E max cortez: 93.1 cm/sec TR max cortez: 292.2 cm/sec Med Peak E' Cortez: 11.8 cm/sec TR max P.1 mmHg E/E' med: 7.9 PA V2 max: 69.3 cm/sec Lat Peak E' [place]: 11.3 cm/sec PA V2 mean: 45.1 cm/sec E/E' lat: 8.3 PA mean P.96 mmHg E/e' average: 8.1 PA pr(Accel): 36.2 mmHg MV dec time: 0.17 sec MVA(VTI): 2.1 cm2 MV V2 mean: 54.8 cm/sec SV(LVOT): 59.4 ml MV mean P.5 mmHg MV V2 VTI: 28.8 cm Reading Physician:01:00 PM
[2025-02-18] MEDS: polyethylene glycoL 3350 17 GM POWD.PACK PO (11:44)
--- NOTE | 2025-02-18 14:47 | CM.DPNOTE ---
DCP Cont Reviewed chart. Patient still requiring nasal cannula oxygen intermittent BiPAP. Daughter involved in care and updated. SW team will plan to follow clinical closely. Historically, patient prefers return home. PT/OT might be helpful closer to discharge. ROSE
[2025-02-18] MEDS: FUROSEMIDE 40 MG TABLET PO (16:44)
[2025-02-18] MEDS: MIRTAZAPINE 15 MG TABLET 30 MG PO (22:00)
[2025-02-18] MEDS: ATORVASTATIN 20 MG TABLET PO (22:01)
[2025-02-19] VITALS (15 sets, daily range): BP systolic 126–159; BP diastolic 68–89; PULSE 52–81; RESP 7–24; TEMP 36.2–36.4; O2SAT 91–100
[2025-02-19 04:56] LABS: Add Manual Diff / Slide Review NO; Basophils Absolute Auto 0 /uL (0-100); Basophils Percent Auto 0.4 % (0-2); Eosinophils Absolute Auto 0 /uL (0-450); Eosinophils Percent Auto 0.2 % (2-4); Hematocrit 33.7 % (41-53); Hemoglobin 11.7 g/dL (13.5-17.5); Lymphocytes Absolute Auto 800 /uL (1100-4500); Lymphocytes Percent Auto 13.6 % (25-40); Mean Corpuscular HGB Conc 34.8 % (30-36); Mean Corpuscular Hemoglobin 33.1 PG (26-34); Mean Corpuscular Volume 95.1 fL (80-100); Monocytes Absolute Auto 1000 /uL (0-900); Monocytes Percent Auto 16.4 % (3-14); Neutrophils Absolute Auto 4100 /uL (1500-7000); Neutrophils Percent Auto 69.4 % (50-75); Platelet Count 220 X10^3/uL (150-400); Red Blood Cell Count 3.55 X10^6/uL (4.5-5.9); Red Cell Distribution Width 14.7 % (11.6-14.8)
[2025-02-19 05:18] LABS: Alanine Aminotransferase 31 IU/L (<50); Albumin 4.1 g/dL (3.5-5.0); Albumin Globulin Ratio 1.6 (1.0-2.8); Alkaline Phosphatase 64 U/L (38-126); Aspartate Aminotransferase 45 IU/L (17-59); Bilirubin Total 0.5 mg/dL (0.2-1.3); Blood Urea Nitrogen 45 mg/dL (9-20); Calcium 8.2 mg/dL (8.4-10.2); Carbon Dioxide 36 mmol/L (22-32); Chloride 84 mmol/L (98-107); Estimated Glomerular Filt Rate 46 mL/min (>60); Globulin 2.6 g/dL (1.7-4.1); Glucose 114 mg/dL (70-99); HEMOLYSIS < 15 (0-50); Potassium 3.9 mmol/L (3.4-5.1); Sodium 128 mmol/L (137-145); Total Protein 6.7 g/dL (6.3-8.2)
--- NOTE | 2025-02-19 08:00 | DI.CT.S_ITS ---
PROCEDURE: CT CHEST W CON INDICATIONS: plural efffusion resp distress TECHNIQUE: After the administration of intravenous contrast, 5 mm thick sections acquired from the pulmonary apices to the posterior costophrenic angles. 1 mm axial lung, 5 mm thick coronal and sagittal reformats and 7 mm axial MIP were acquired. For radiation dose reduction, the following was used: automated exposure control, adjustment of mA and/or kV according to patient size. COMPARISON: [facility], CT, CT CHEST ABD PEL W CON, 11/30/2024, 8:37. FINDINGS: Image quality: Diagnostic. Lower Neck: No enlarged lymph nodes. Thyroid: Asymmetric in lead enlarged left thyroid lobe is seen with small hypodense nodule measures 1.1 x 0.7 cm in size in lower pole left thyroid lobe. Axillae: No enlarged lymph nodes. Chest Wall: Median sternotomy wires are seen. Bones: Unremarkable. Lungs and Pleura: Small to moderate bilateral pleural effusion slightly more prominent on the right side and has increased compared to previous study. Adjacent compressive atelectasis in posterior aspect of bilateral lung lou are seen. Underlying bilateral lower lobe infiltrates cannot be excluded. No pneumothorax. No suspicious pulmonary nodule is seen in bilateral aerated lung lou. Central and peripheral airway is patent. Heart: Heart size is mildly enlarged. No pericardial effusion. Thoracic Vessels: The aorta and pulmonary arteries demonstrate normal size. Mild 1 vessel coronary artery atherosclerotic calcification is seen. Mediastinum and Ching: No enlarged lymph nodes. Subcentimeter lymph nodes are seen in mediastinum measures up to 9 mm in size in precarinal space. Esophagus: No wall thickening. No signal hiatal hernia. Upper Abdomen: Visualized upper abdomen solid organs and bowel loops appear normal. IMPRESSION: 1. Small to moderate right greater than left bilateral pleural effusion with segmental atelectasis in posterior aspect of bilateral lung lou increased compared to 11/30/2024 study Underlying bilateral lower lobe infiltrates cannot be excluded. No pneumothorax. 2. No mediastinal or hilar lymphadenopathy. Cardiomegaly, no pericardial effusion. Mild atherosclerotic calcifications. 3. Asymmetrically enlarged left thyroid lobe with suggestion of left thyroid lobe nodule unchanged from previous study. Non urgent ultrasound thyroid follow-up is recommended. Dictated by: Jose Antonio Bravo M.D. on 02/19/2025 at 16:54 Approved by: Jose Antonio Bravo M.D. on 02/19/2025 at 16:59
[2025-02-19] MEDS: lisinopriL 20 MG TABLET 40 MG PO (09:12)
[2025-02-19] MEDS: FUROSEMIDE 40 MG TABLET PO ×2 (09:13→17:27)
[2025-02-19] MEDS: SODIUM CHLORIDE 0.9% FLUSH 10 ML IV ×2 (09:13→22:04)
[2025-02-19] MEDS: SPIRONOLACTONE 25 MG TABLET PO ×2 (09:13→17:27)
[2025-02-19] MEDS: ASPIRIN EC 81 MG TABLET PO (09:13)
[2025-02-19] MEDS: SENNOSIDES 8.6 MG TABLET PO ×2 (09:13→22:04)
--- NOTE | 2025-02-19 12:25 | PM.PN.1 ---
Subjective Subjective Date Patient Seen: 02/19/25 Time Patient Seen: 12:25 Interval history: Patient had unremarkable night. He was weaned off 6 L of nasal cannula oxygen last night and now is on room air. He has had significant diuresis. He was receiving IV Lasix and then was switched to p.o. yesterday due to acute renal insufficiency inpatient has a history of renal cell carcinoma and has solitary kidney. Echo was done yesterday but is still pending. This was done to see if there were any changes because of his acute fluid overload from his last echo in November which was not showing significant structural problems. Patient is currently undergoing CT scan of his chest to look for other causes for acute hypoxemia. Patient continues to be confused thinking that he can go home and pay some bills and then come back here. Patient lives alone in [facility]. He has a daughter who lives in [facility] and will be here tomorrow Twelve point review of systems is unremarkable Exam Vital Signs (past 8 hours): - 02/19/25 04:30 02/19/25 08:05 02/19/25 08:35 Temperature 97.6 F Pulse Rate 53 L 56 L Respiratory Rate 12 Blood Pressure 141/89 H 141/89 H 132/68 Pulse Oximetry 99 100 Oxygen Delivery Method Oxygen Flow Rate 0 Fraction of Inspired Oxygen 40 40 40 02/19/25 08:44 Temperature Pulse Rate Respiratory Rate Blood Pressure Pulse Oximetry Oxygen Delivery Method Nasal Cannula BiPAP Oxygen Flow Rate Fraction of Inspired Oxygen Fraction of Inspired Oxygen 40 Oxygen Delivery Method Nasal Cannula,BiPAP Oxygen Flow Rate 0 Narrative Exam Narrative: Afebrile vital signs are stable blood pressure improved Patient is lying in hospital bed sleeping with a blanket pulled over his head when I entered but easily arouses and and is able to state that he is grateful for the care he is receiving in the hospital. HEENT: Patient with lili complexion mucous membranes moist and pink without lesions Neck: Supple without adenopathy Chest: Clear to auscultation with bibasilar crackles decreased breath sounds in the bases, distant S1-S2 Cor: Irregularly irregular rhythm at a well-controlled rate Abdomen: Positive bowel sounds, obese, no hepatosplenomegaly Extremities 1 to 2+ pitting edema pretibial ankle and pedal Neurologic exam nonfocal Objective Labs 02/19/25 04:47 02/19/25 04:47 Labs: Laboratory Results - last 24 hr 02/19/25 04:47 WBC 6.0 RBC 3.55 L Hgb 11.7 L Hct 33.7 L MCV 95.1 MCH 33.1 MCHC 34.8 RDW 14.7 Plt Count 220 Neut % (Auto) 69.4 Lymph % (Auto) 13.6 L [place] % (Auto) 16.4 H Eos % (Auto) 0.2 L Baso % (Auto) 0.4 Neut # (Auto) 4100 Lymph # (Auto) 800 L [place] # (Auto) 1000 H Eos # (Auto) 0 Baso # (Auto) 0 Sodium 128 L Potassium 3.9 Chloride 84 L Carbon Dioxide 36 H BUN 45 H Creatinine 1.50 H Estimated GFR 46 L BUN/Creatinine Ratio 30.0 H Glucose 114 H Calcium 8.2 L Total Bilirubin 0.5 AST 45 ALT 31 Alkaline Phosphatase 64 Total Protein 6.7 Albumin 4.1 Globulin 2.6 Albumin/Globulin Ratio 1.6 PFSH Medical History Melanoma 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 Hyponatremia TIA (transient ischemic attack) Scoliosis (~09/2014) Rosacea Mumps Measles Chicken pox Tinnitus Hearing loss Cataract (~09/2012) Kidney disease (~12/2014) Peripheral vascular disease (~12/2014) Hypertension Melanoma (~09/2014) Diverticulosis of large intestine without hemorrhage (01/13/18) Anxiety (06/26/17) 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 Solorzano. Acute respiratory failure Suspect etiology is heart failure with preserved ejection fraction. Patient is markedly improved with IV aggressive diuresis and now is on oral diuresis. Now is on room air. Echo is pending as is CT scan of his chest. Will continue with oral furosemide and will recheck labs tomorrow. If patient remained stable my hopes are that he can go home with home health and his daughter will help navigate that. Assuming he continues to do well Heart failure with preserved ejection fraction with acute exacerbation. Patient with signs and symptoms consistent with heart failure elevated BNP. Last echocardiogram was 3 months ago it was limited. Echo pending and CT scan pending. Continue now with oral diuresis and will continue to monitor blood work and overall clinical condition. Would like to look at alternative causes of edema and pleural effusion. Atrial fibrillation new diagnosis. Heart rate well controlled on aspirin Lovenox. Not on full-strength anticoagulation because history of gastrointestinal bleeding. Possible etiology for fluid overload and acute respiratory failure Hyponatremia. Patient with hyponatremia continue with fluid restriction. Patient is not on normal saline because of fluid overload status. Continue to monitor sodium. See if this improves with continued diuresis orally. 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 Chronic and stable. No signs of reoccurrence Chronic renal failure stage 3. Increasing creatinine levels due to diuresis. Slightly improved with switch from IV to oral Lasix Continue to monitor kidney and electrolytes. Hypertension. Will continue with lisinopril and his beta-darek. Mildly hypertensive initially but blood pressure improved.. Start spironolactone. Will continue to monitor Hyperlipidemia we will continue with statin therapy. Confusion reportedly per PCP this has been ongoing over last year. Unclear if related to hospitalization. Will continue to monitor and will need help at home which is daughter will provide and can consider home health as patient adamantly refuses skilled care facility. check ammonia, vitamin levels etc DVT prophylaxis with Lovenox Code status full code Still hypoxic requiring oxygen some mild agitation provide lorazepam repeat echocardiogram hold IV diuretics continue with oral diuretics because of increasing BUN and creatinine. Looking for alternative sources of pleural effusions with CT scan of chest tomorrow. 59 minutes spent with patient reviewing chart meeting with patient formulating a plan and documentation Time-Based Coding :: [TOTAL MINUTES] spent with patient and on the chart (including review of chart, obtaining history, exam, reviewing outside data, placing orders, documenting exam and treatment plan, and counseling patient) on [DATE].
[2025-02-19] MEDS: METOPROLOL ER 25 MG TABLET 12.5 MG PO (13:08)
--- NOTE | 2025-02-19 14:47 | CM.DPC ---
DCP Cont: Per MD, pt making progress and able to be weaned off oxygen and seems to be tolerating room air and plan of likely discharge home tomorrow Sun when Dtr arrives from [place] to transport pt home and stay with him and requesting SW to set up HH. No HH preference. SW made [facility] referral based on vendor calendar and F2F completed but not sent yet. Plan: SW to follow for plan of d/c home with Dtr assist tomorrow Sun if stable and to fax F2F and orders and d/c summ to [facility] to review. SW to provide list of [facility] agency list to Dtr at d/c per her request. SW to notify TCM group at d/c as pt's PCP Dr. Solorzano. ANAY Dueñas
--- NOTE | 2025-02-19 14:55 | PT.IIE ---
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) Diverticulosis of large intestine without hemorrhage (01/13/18) Essential hypertension (02/27/11) Hearing loss Hyperlipidemia (02/27/11) Hypertension Hyponatremia Kidney disease (~12/2014) Measles Melanoma (~09/2014) Melanoma Mumps Neoplasm of kidney (12/01/14) Peripheral vascular disease (~12/2014) Rosacea Scoliosis (~09/2014) 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 Status post nephrectomy (02/02/15) TIA (transient ischemic attack) Tinnitus Physical Therapy Inpatient Evaluation/Re-Eval M1 PT/OT-IP Prior Functional Status Start: 02/19/25 17:29 Freq: NEEDED Status: Active Protocol: Document 02/19/25 14:55 AB (Rec: 02/19/25 17:55 AB Desktop) Medical Review Prior Functional Status Medical History Reviewed Yes Communication able to make needs known Mobility and Gait pt stated that he was independent with all mobilities and ambulation without AD Social History Household Members none Living Arrangements House Number of Floors (Floors) 3 or More Floors Number of Stairs To Enter/Railing? pt stays on the main level of the house has 1 step to enter Home Environment Standard Height Toilet,Walk in Shower Home Equipment Shower Seat with Backrest Additional Social History Comment per nurse: daughter from [place] will be coming in to assist pt for a few days M2 PT-IP Current Condition Start: 02/19/25 17:29 Freq: NEEDED Status: Active Protocol: Document 02/19/25 14:55 AB (Rec: 02/19/25 17:55 AB Desktop) Physical Therapy Current Condition Current Condition Evaluation Date 02/19/25 Treatment Diagnosis CHF; A-fib; difficulty in walking Onset Date 05/28/25 M3 PT-IP Subjective Start: 02/19/25 17:29 Freq: NEEDED Status: Active Protocol: Document 02/19/25 14:55 AB (Rec: 02/19/25 17:55 AB Desktop) Subjective Physical Therapy Visit Type Type Initial Evaluation Visit Start Time 14:55 Visit Stop Time 15:30 Number of BUSINESS CONTINUITY PLANNING DIRECTOR Visits 0 Physical Therapy Visit Comments Patient Comments agreeable to do PT Therapy Pain Assessment Pain Present Pain Present Denied Pain M4 PT-IP Mobility and Gait Start: 02/19/25 17:29 Freq: NEEDED Status: Active Protocol: Document 02/19/25 14:55 AB (Rec: 02/19/25 17:55 AB Desktop) PT-Bed Mobility Assessment Supine to Sit Supine to Sit Maximum Assistance,Head of Bed Elevated,Bedrails PT-Transfer Assessment Sit to and From Stand Sit to and from Stand Contact Guard Assistance,1 Person Assistance,Use of Upper Extremities Equipment Transfer Assistive Device None,Gait Belt Orthotic/Prosthetic Devices or Brace: No Transfers Transfer Destination Bed Transfer Technique ambulated Transfer Ability Level of Assist Contact Guard Assistance, Minimal Assistance,Moderate Assistance,1 Person Assistance ,Use of Upper Extremities Comments Mobility Comments pt in bed and agreed to do PT. obtained PLOF and home set up . BP: 125/73 O2 sat at RA: 98% pt completed supine to sit max A and max cues requiring 2 attempts to sit up. HOB elevated. pt is very impulsive and cued for safety. sit to stand CGA and ambulated in room without AD CGA to min A (+) LOB x 2 requiring mod A for recovery. pt sat on EOB. educated on safety. pt agreed to do steps: completed up/down step stool without AD CGA ascending but needing min A for descending. again, pt is very impulsive. pt repeated x 2 sets. Assessed ambulation using FWW. pt completed ambulation using FWW ~ 30 ft CGA to min A with pt just lifting and tilting FWW to one side. cued pt to slow down and use FWW for support. pt sat back on bed. educated pt on safety again and stated that he is steady and sure of his steps. Left pt with NAC as pt prepares for a shower. informed nurse regarding pt's mobility and safety concerns. nurse stated that pt's daughter will be coming tomorrow from [place] and assist pt at home. Gait Assessment Gait Gait Assistance Required: Contact Guard Assist,Minimum Assistance,Moderate Assistance Distance (Feet) 30 Able to Maintain Weight Bearing Status Yes During Gait Assistive Devices Assistive Device None,Gait Belt,Front Wheeled Walker Orthotic/Prosthetic Devices or Brace: No Gait Deviations General Gait Pattern Ataxic,Decreased Stride Length ,Decreased Feet Clearance Factors Limiting Gait Function Factors Limiting Gait Function Decreased Activity Tolerance, Decreased Strength,Difficulty Following Directions,Limited Range of Motion,Poor Balance, Poor Safety Awareness Stair Climbing Assessment Evaluation Level of Assist On Stairs Contact Guard Assistance, Minimal Assistance Devices Stair Climbing Assistive Devices None Technique/Endurance Stair Climbing Direction Ascend and Descend Stair Climbing Technique Step to Step Number of Steps Climbed 1 Query Text: Stair Climbing Set # Repetitions (reps) 2 PT-Balance Assessment Sitting Balance and Reactions Static Sitting Balance Ability Normal Dynamic Sitting Balance Ability Good Standing Balance and Reactions Static Standing Balance Ability Fair Dynamic Standing Balance Ability Poor Device Used without AD M5 PT-IP Objective Assessments Start: 02/19/25 17:29 Freq: NEEDED Status: Active Protocol: Document 02/19/25 14:55 AB (Rec: 02/19/25 17:55 AB Desktop) Orientation Orientation/Cognition Level of Alertness Alert Orientation Name,Place,Situation Language Function Ability No Deficits Noted Safety Awareness Decreased Safety Awareness Memory Description Short Term Impaired Gross Range of Motion Lower Extremity ROM Assessment Within Functional Limits Strength Lower Extremity Strength Assessment Within Functional Limits Muscle Tone Muscle Tone WNL Yes M6 PT-IP Treatment Start: 02/19/25 17:29 Freq: NEEDED Status: Active Protocol: Document 02/19/25 14:55 AB (Rec: 02/19/25 17:55 AB Desktop) Physical Therapy Treatment Education Education Provided Safety M7 PT-IP Assessment and Plan Start: 02/19/25 17:29 Freq: NEEDED Status: Active Protocol: Document 02/19/25 14:55 AB (Rec: 02/19/25 17:55 AB Desktop) PT Summary Assessment and Plan Potential Rehabilitation Potential Fair Status of Condition at Evaluation Evolving Summary Impairments Pain,ROM,Strength,Balance, Coordination,Sensation,Tone, Cognition,Bed Mobility, Transfers,Gait,Activity Tolerance Assessment Summary pt is an 84 y/o M who is admitted for CHF and A-fib. pt requiring CGA to min A with ambulation without AD but with (+) LOB requiring mod A for re-steady. pt lives alone and will require 24/7 assist due to pt's decrease safety awareness affecting mobility independence. pt is very impulsive. d/c plan: SNF vs home with 24/7 and HHPT. Goals Bed Mobility Goal Independent Transfer Goal Independent Gait Goal Independent Gait Distance 200 Other Goals up/down 1 step SBA Days to Meet Goals 10 Frequency of Treatment Frequency Of Treatment Once a Day Treatment Plan Physical Therapy Treatment Plan Bed Mobility Training,Transfer Training,Gait Training, Therapeutic Exercise,Balance Retraining,Discharge Planning, Hot or Cold Pack,Neuromuscular Re-ed,Coordination Retraining ,Manual Therapy Precautions Other Precautions fall risk Recommendations To Nursing Amount of Assist Needed 1 Person Assist Discharge Recommendations PT Discharge Recommendations Home with 24/7 Assist Available,Home Health,SNF Rehab,Home vs SNF Equipment Needed for Home Before FWW Discharge Transportation Needs at Discharge Private Vehicle - PT assist 1
[2025-02-19] MEDS: MIRTAZAPINE 15 MG TABLET 30 MG PO (22:03)
[2025-02-19] MEDS: LORazepam 1 MG TABLET PO (22:04)
[2025-02-19] MEDS: ATORVASTATIN 20 MG TABLET PO (22:04)
[2025-02-20] VITALS (8 sets, daily range): BP systolic 110–152; BP diastolic 59–77; PULSE 66–80; RESP 16–24; TEMP 36.2; O2SAT 94–96
[2025-02-20 04:54] LABS: Alanine Aminotransferase 37 IU/L (<50); Albumin 4.2 g/dL (3.5-5.0); Albumin Globulin Ratio 1.4 (1.0-2.8); Alkaline Phosphatase 71 U/L (38-126); Ammonia (NH3) < 9 umol/L (9-30); Aspartate Aminotransferase 48 IU/L (17-59); BUN Creatinine Ratio 32.2 (6-22); Bilirubin Total 0.7 mg/dL (0.2-1.3); Blood Urea Nitrogen 39 mg/dL (9-20); Calcium 8.7 mg/dL (8.4-10.2); Carbon Dioxide 34 mmol/L (22-32); Chloride 86 mmol/L (98-107); Estimated Glomerular Filt Rate 59 mL/min (>60); Globulin 2.9 g/dL (1.7-4.1); Glucose 107 mg/dL (70-99); HEMOLYSIS 28 (0-50); Potassium 4.4 mmol/L (3.4-5.1); Sodium 127 mmol/L (137-145); Total Protein 7.1 g/dL (6.3-8.2)
[2025-02-20 06:23] LABS: Add Manual Diff / Slide Review NO; Basophils Absolute Auto 0 /uL (0-100); Basophils Percent Auto 0.3 % (0-2); Eosinophils Absolute Auto 100 /uL (0-450); Eosinophils Percent Auto 2.7 % (2-4); Hematocrit 38.9 % (41-53); Lymphocytes Absolute Auto 600 /uL (1100-4500); Lymphocytes Percent Auto 11.3 % (25-40); Mean Corpuscular HGB Conc 33.4 % (30-36); Mean Corpuscular Hemoglobin 32.2 PG (26-34); Mean Corpuscular Volume 96.3 fL (80-100); Monocytes Absolute Auto 1100 /uL (0-900); Monocytes Percent Auto 20.6 % (3-14); Neutrophils Absolute Auto 3600 /uL (1500-7000); Neutrophils Percent Auto 65.1 % (50-75); Platelet Count 240 X10^3/uL (150-400); Red Blood Cell Count 4.04 X10^6/uL (4.5-5.9); Red Cell Distribution Width 14.6 % (11.6-14.8); White Blood Cell Count 5.5 X10^3/uL (4.5-11.0)
[2025-02-20] MEDS: SPIRONOLACTONE 25 MG TABLET PO ×2 (08:51→17:31)
[2025-02-20] MEDS: METOPROLOL ER 25 MG TABLET 12.5 MG PO (08:51)
[2025-02-20] MEDS: FUROSEMIDE 40 MG TABLET PO ×2 (08:52→17:31)
[2025-02-20] MEDS: lisinopriL 20 MG TABLET 40 MG PO (08:52)
[2025-02-20] MEDS: ASPIRIN EC 81 MG TABLET PO (08:52)
[2025-02-20] MEDS: polyethylene glycoL 3350 17 GM POWD.PACK PO (08:52)
[2025-02-20] MEDS: SENNOSIDES 8.6 MG TABLET PO ×2 (08:52→21:39)
[2025-02-20] MEDS: SODIUM CHLORIDE 0.9% FLUSH 10 ML IV ×2 (08:54→21:39)
--- NOTE | 2025-02-20 10:55 | CM.DPC ---
Addendum entered by ANAY Dueñas 02/20/25 15:42: ADD: SW met bedside with pt and explained role and discussed recommendation of increased assist at home and concern for risk of falls and pt feels strongly that he can manage well at home and continue doing his ADLs and driving as his baseline but encourged pt to listen to observations and feedback from medical team and PCP if his goal is to remain at home as long as possible safely without need for SNF or facility placement or timekeeping supervisor CGs. Pt reluctant but agreeable to discuss further tomorrow with his PCP Dr. Solorzano. Pt initially told Dtr she did not need to transport him at d/c but updated pt that hospital does not provide transport and family needed to get pt home and settled. SW spoke to Dtr again and updated and strongly requested she be present bedside tomorrow morning to discuss her concerns with MD and get information needed and get pt settled at home and she is agreeable and will stay with friend in [facility] and be bedside around 0800 tomorrow Mon AM. BF Addendum entered by ANAY Dueñas 02/20/25 11:08: ADD: SW also made [facility] referral in case SNF needed at d/c in case Dtr feels she does not have safe plan for him at home and [facility] will review and likely will have beds available tomorrow Mon if SNF needed. BF Original Note: DCP COnt: Per PT eval yesterday, recommending home with 24 7 vs SNF due to his impulsivity and poor safety awareness and needing CGA to min assist with mobility and tasks. Pt able to ambulate with and without FWW. SW received a call from pt's Dtr Delilah ([phone]) stating she cannot stay overnight with the patient but can provide transport and get him settled but will not be staying with him timekeeping supervisor at d/c. SW discussed possible option of SNF under his Medicare for short rehab stay. Dtr states pt will profoundly refuse and only wants home. Provided information on MCR coverage for HH RN/PT/OT/TIME CYCLE OPERATOR/PASTRY MIXER and Dtr strongly requests SW to make referral and confirms no HH preference. Provided Dtr information on [facility] based on Vendor Calendar. Dtr states pt has been hesitant about in-home CGs or staff coming into home but agreeable with it at this time to help him d/c home rather than SNF. Dtr thinks pt has LTC insurance that might cover in-home CGs and SW provided PP CG list including [facility], [facility], [employer], [facility] and encouraged her to call today to gather information on cost, how to use LTC insurance, and how quickly could be set up. Dtr states that finances are not an issue and states she will begin placing calls today. Provided information on [facility] as well per Dtr request and will give her the brochures of [facility] and [facility] at d/c when she transports pt home. Dtr requesting d/c tomorrow 02/21/25 so she can set up safe d/c plan with CG and HH and SW explained need for medical reason to remain hospital level of care but will update MD when they round today. Plan: SW to follow for plan of discharge home via Dtr POV and new [facility] and Dtr calling PP CG agencies for bed bug exterminator support maybe through his LTC insurance. ANAY Dueñas
[2025-02-20] MEDS: BISACODYL 10 MG SUPP PR (11:15)
--- NOTE | 2025-02-20 12:12 | PT-IP ANOTE ---
PT checks in on pt who states he is finishing up in the BR. After several minutes of conversation and PT setting up his chair for him to have his lunch, pt states that he needs more time for BM. Will check back, though lunch is on the way, and given this is PT's last pt, may follow-up tomorrow if he is still in the hospital.
--- NOTE | 2025-02-20 13:32 | P.PN_ITS ---
Subjective Subjective Date Patient Seen: 02/20/25 Time Patient Seen: 13:32 Interval history: Patient is sitting upright in chair at the time of evaluation. He continues to be stable off oxygen. He continues to get up on his own without having assistance and continues to urinate in the toilet and not in the urinal so that we can monitor. He continues on the oral Lasix 40 mg twice daily in his feeling great and wanting to go home. Based on PT assessment he needs skilled care but he adamantly refuses to do that. His daughter is arranging to be with him home tomorrow but then will need caregivers and would like home health. He denies any diarrhea or abdominal pain or chest pain or shortness for breath. He repeatedly says he feels great without any problems. 12 point review of systems is otherwise negative Exam Vital Signs (past 8 hours): - 02/20/25 08:00 02/20/25 08:51 02/20/25 08:52 Pulse Rate 80 76 76 Respiratory Rate 17 Blood Pressure 136/77 136/77 136/77 Pulse Oximetry 94 Oxygen Delivery Method Oxygen Flow Rate 0 02/20/25 09:21 02/20/25 09:37 Pulse Rate 75 Respiratory Rate Blood Pressure Pulse Oximetry Oxygen Delivery Method Room Air Oxygen Flow Rate Fraction of Inspired Oxygen 40 Oxygen Delivery Method Room Air Oxygen Flow Rate 0 Narrative Exam Narrative: Patient is alert and able to answer questions. He is oriented to person and place but not time HEENT shows mucous membranes moist and pink Neck: Supple without adenopathy or thyromegaly Chest: Bibasilar crackles and decreased breath sounds in the base but no wheeze or rhonchi Cor: Irregularly irregular rhythm and a well-controlled rate Abdomen: Positive bowel sounds, soft, nontender Extremities trace to 1+ pitting edema bilateral lower extremities Neurologic exam is nonfocal Objective Labs 02/20/25 06:06 02/20/25 04:34 Labs: Laboratory Results - last 24 hr 02/20/25 02/20/25 04:34 06:06 WBC 5.5 RBC 4.04 L Hgb 13.0 L Hct 38.9 L MCV 96.3 MCH 32.2 MCHC 33.4 RDW 14.6 Plt Count 240 Neut % (Auto) 65.1 Lymph % (Auto) 11.3 L Coffee % (Auto) 20.6 H Eos % (Auto) 2.7 Baso % (Auto) 0.3 Neut # (Auto) 3600 Lymph # (Auto) 600 L Coffee # (Auto) 1100 H Eos # (Auto) 100 Baso # (Auto) 0 Sodium 127 L Potassium 4.4 Chloride 86 L Carbon Dioxide 34 H BUN 39 H Creatinine 1.21 Estimated GFR 59 L BUN/Creatinine Ratio 32.2 H Glucose 107 H Calcium 8.7 Total Bilirubin 0.7 AST 48 ALT 37 Alkaline Phosphatase 71 Ammonia < 9 L Total Protein 7.1 Albumin 4.2 Globulin 2.9 Albumin/Globulin Ratio 1.4 [facility] Medical History Melanoma 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 Hyponatremia TIA (transient ischemic attack) Scoliosis (~09/2014) Rosacea Mumps Measles Chicken pox Tinnitus Hearing loss Cataract (~09/2012) Kidney disease (~12/2014) Peripheral vascular disease (~12/2014) Hypertension Melanoma (~09/2014) Diverticulosis of large intestine without hemorrhage (01/13/18) Anxiety (06/26/17) 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 Solorzano. Acute respiratory failure Suspect etiology is heart failure with preserved ejection fraction. Patient is markedly improved with IV aggressive diuresis and now is on oral diuresis. Patient continues to be stable Now is on room air. Will continue with oral furosemide and will recheck labs tomorrow. If patient remained stable my hopes are that he can go home with home health and his daughter will help navigate that tomorrow because he refuses to go to skilled care. Reviewed chest CT which shows pleural effusions bilateral and enlarged heart and atelectasis but no clear pulmonary disease. Will work with incentive spirometry Heart failure with preserved ejection fraction with acute exacerbation. Patient with signs and symptoms consistent with heart failure elevated BNP. Last echocardiogram was 3 months ago it was limited. Continue now with oral diuresis and will continue to monitor blood work and overall clinical condition. Suspect pleural effusions related to heart failure. Unfortunately echo was not available yesterday but is available today EF is 50-55% with right ventricle moderately dilated and systolic function mildly reduced compared to prior echo 3 months ago there has been an increase in tricuspid regurgitation as well as pulmonary hypertension which would explain the respiratory problems and fluid overload. Will continue workup as outpatient and continue on oral Lasix and patient is in room air now. Atrial fibrillation new diagnosis. Heart rate well controlled on aspirin Lovenox. Patient is somehow Lovenox was discontinued but we will continue. Not on full-strength anticoagulation because history of gastrointestinal bleeding. Possible etiology for fluid overload and acute respiratory failure. Patient continues in AFib and I suspect that this is or did contribute to his acute respiratory failure. Hyponatremia. Patient with hyponatremia continue with fluid restriction. Patient is not on normal saline because of fluid overload status. Continue to monitor sodium. See if this improves with continued diuresis orally. 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 Chronic and stable. No signs of reoccurrence Chronic renal failure stage 3. Increasing creatinine levels due to diuresis. Significantly improved. Will continue to monitor Hypertension. Will continue with lisinopril and his beta-darek. Mildly hypertensive initially but blood pressure improved.. Continue spironolactone. Will continue to monitor Hyperlipidemia we will continue with statin therapy. Confusion reportedly per PCP this has been ongoing over last year. Unclear if related to hospitalization. Will continue to monitor and will need help at home which is daughter will provide and can consider home health as patient adamantly refuses skilled care facility. check ammonia which was negative. Will need workup as outpatient Anemia suspect of chronic disease worsened with fluid overload and now improved with diuresis. No evidence of bleeding. Will continue to monitor Thyroid nodule seen incidentally on CT scan and previously seems unchanged. Will get thyroid ultrasound as outpatient DVT prophylaxis with Lovenox. Will restart Lovenox Code status full code 51 minutes spent with patient, discussed with nursing, reviewing chart meeting with patient formulating a plan and documentation Time-Based Coding :: [TOTAL MINUTES] spent with patient and on the chart (including review of chart, obtaining history, exam, reviewing outside data, placing orders, documenting exam and treatment plan, and counseling patient) on [DATE].
[2025-02-20] MEDS: LORazepam 1 MG TABLET PO (21:38)
[2025-02-20] MEDS: MIRTAZAPINE 15 MG TABLET 30 MG PO (21:38)
[2025-02-20] MEDS: ATORVASTATIN 20 MG TABLET PO (21:39)
[2025-02-21 02:35] VITALS: BP 164/81; PULSE 84; RESP 14; TEMP 36.4; O2SAT 92
[2025-02-21 05:16] LABS: Add Manual Diff / Slide Review NO; Basophils Absolute Auto 0 /uL (0-100); Basophils Percent Auto 0.4 % (0-2); Eosinophils Absolute Auto 200 /uL (0-450); Eosinophils Percent Auto 3.7 % (2-4); Hematocrit 38.4 % (41-53); Hemoglobin 13.1 g/dL (13.5-17.5); Lymphocytes Absolute Auto 900 /uL (1100-4500); Mean Corpuscular HGB Conc 34.2 % (30-36); Mean Corpuscular Hemoglobin 32.7 PG (26-34); Mean Corpuscular Volume 95.8 fL (80-100); Monocytes Absolute Auto 800 /uL (0-900); Monocytes Percent Auto 16.9 % (3-14); Neutrophils Absolute Auto 2900 /uL (1500-7000); Platelet Count 268 X10^3/uL (150-400); Red Blood Cell Count 4.01 X10^6/uL (4.5-5.9); Red Cell Distribution Width 14.7 % (11.6-14.8); White Blood Cell Count 4.8 X10^3/uL (4.5-11.0)
[2025-02-21 05:30] LABS: Alanine Aminotransferase 40 IU/L (<50); Albumin Globulin Ratio 1.4 (1.0-2.8); Alkaline Phosphatase 66 U/L (38-126); Aspartate Aminotransferase 44 IU/L (17-59); BUN Creatinine Ratio 29.2 (6-22); Bilirubin Total 0.7 mg/dL (0.2-1.3); Blood Urea Nitrogen 35 mg/dL (9-20); Carbon Dioxide 34 mmol/L (22-32); Chloride 87 mmol/L (98-107); Estimated Glomerular Filt Rate 60 mL/min (>60); Globulin 2.8 g/dL (1.7-4.1); Glucose 103 mg/dL (70-99); HEMOLYSIS < 15 (0-50); Potassium 4.3 mmol/L (3.4-5.1); Sodium 128 mmol/L (137-145); Total Protein 6.8 g/dL (6.3-8.2)
[2025-02-21 06:48] LABS: Vitamin B12 221 pg/mL (239-931)
[2025-02-21 07:18] LABS: Free T4, Direct Thyroxine 1.13 ng/dL (0.78-2.19)
--- NOTE | 2025-02-21 08:25 | PM.DS.IH.1 ---
History of Present Illness History of Present Illness Date Patient Seen: 02/21/25 Chief complaint: SOB/Weakness x2 Days Narrative: 84-year-old male with a past medical history congestive heart failure with preserved ejection fraction chronic renal failure stage 3 clear cell carcinoma of the kidney status post right nephrectomy hypertension hyperlipidemia hypothyroidism gastrointestinal bleed and melanoma. Patient presents to the emergency department with shortness of breath. Patient states he is noticed some dizziness over the last 3 days. When he was into town yesterday said he was feeling more dizzy and had to come home. He says that has been on and off. Noticed in the last 24 hours he became a little bit more short of breath. Shortness of breath progressively worsened today as well as dizziness and presented to the emergency department. Patient has noticed increased swelling and edema over the last month or so. Patient denies any recent changes in his medications. He has on a diuretic and he says he has been taking that. Patient denies any recent palpitations irregular heart rhythms or pain in his chest that he is aware of. He has had decreased exercise tolerance. And what he describes his increasing edema in his feet and ankles he even feels swollen up to his knees. Patient does state he takes his medication regularly he has had girl good urine output. He has had no problems with eating. He has had no significant dietary changes recently. On arrival to the emergency department patient was significantly hypoxic and hypertensive and required BiPAP for oxygenation. His initial workup included blood work x-ray. He was given Solu-Medrol and nebulizer. Initially has laboratory work came back and as I discussed with the emergency department physician he was started on Lasix. His lab tests show normal white blood cell count hemoglobin hematocrit. Patient had a venous blood gas with a pCO2 of 43. Patient had a sodium of 122 normal creatinine blood glucose was normal lactate was normal troponin was normal BNP was significantly elevated at 2540 patient had viral panel testing which was negative chest x-ray shows signs of pulmonary congestion edema and possible pleural effusion. EKG shows atrial fibrillation which is new for this patient. Patient is not on anticoagulation. Review of echocardiogram done in November of this year shows ejection fraction of 60-65% with mild ventricular dilation without significant valvular heart disease. Discharge Providers Provider Date of admission: 02/16/25 16:26 Discharge Date: 02/21/25 Primary care physician: Stoney Solorzano MD Consults: 02/19/25 11:35 Consult to Physical Therapy Evaluate & Treat Comment: Physician Instructions: Evaluate and Treat Discharge provider: Stoney Solorzano MD Summary Hospital Course Discharge Diagnosis: Acute respiratory failure Acute diastolic heart failure hfPEF acute kidney injury acute metabolic encephalopathy with mental status changes was mild baseline confusion Atrial fibrillation Hyponatremia Clear cell carcinoma Chronic renal failure Hypertension Hyperlipidemia Anemia Hypothyroidism newly diagnosed Hospital Course: Patient admitted to the hospital with acute respiratory failure. Patient requiring BiPAP eventually nasal cannula oxygen in the time of discharge nasal cannula oxygen. Investigation and evaluation as heart failure was shown to have bilateral pleural effusions and pulmonary edema elevated BNP. Repeat echocardiogram shows right-sided heart failure consistent with diastolic dysfunction. Patient had a CT scan which showed confirmation of pleural effusion without other significant underlying lung pathology. Patient at the time of discharge had good diuresis. He had the Lasix initially IV some budesonide. He had some mild worsening of his kidney function due to diuresis. Patient only has 1 kidney due to history of clear cell carcinoma. Patient continued a private dress with oral diuresis of Lasix and spironolactone. And these ultimately will be continued Patient with heart failure with preserved ejection fraction with acute fluid overload. Patient's medications will be adjusted at home he will stop his calcium channel darek he will be continued on his beta-darek for rate control. He will be started on Jardiance 10 mg a day spironolactone 25 mg a day and Lasix 40 mg once a day. We will monitor fluid and electrolytes. During his hospital stay at atrial fibrillation. Patient was not elected to restart anticoagulation because of history of significant gastrointestinal bleeding. He will be continued on daily aspirin. He is at risk for CVA because of his history of atrial fibrillation he did received DVT prophylaxis in the hospital Hyponatremia. Patient had low sodium due to increased fluid retention and overload. During his hospital stay his sodium improved to 128. Which is closer to his baseline anticipate this they can do to improve as he continues to diurese. Patient had acute confusion in the hospital patient has a mild baseline confusion. This was worsened due to his underlying health conditions. Heart failure respiratory distress being in the ICU etc. the time of discharge he was heading back to his baseline. During his hospital stay he was started on thyroid replacement as his TSH was found to be elevated. He will be started on 75 mcg. Exam Vital Signs (past 8 hours): - 02/21/25 02:35 Temperature 97.6 F Pulse Rate 84 Respiratory Rate 14 Blood Pressure 164/81 H Pulse Oximetry 92 Fraction of Inspired Oxygen 40 Oxygen Delivery Method Room Air Oxygen Flow Rate 0 Objective Labs 02/21/25 04:28 02/21/25 04:28 Labs: Laboratory Results - last 24 hr 02/21/25 04:28 WBC 4.8 RBC 4.01 L Hgb 13.1 L Hct 38.4 L MCV 95.8 MCH 32.7 MCHC 34.2 RDW 14.7 Plt Count 268 Neut % (Auto) 60.0 Lymph % (Auto) 19.0 L [place] % (Auto) 16.9 H Eos % (Auto) 3.7 Baso % (Auto) 0.4 Neut # (Auto) 2900 Lymph # (Auto) 900 L [place] # (Auto) 800 Eos # (Auto) 200 Baso # (Auto) 0 Sodium 128 L Potassium 4.3 Chloride 87 L Carbon Dioxide 34 H BUN 35 H Creatinine 1.20 Estimated GFR 60 BUN/Creatinine Ratio 29.2 H Glucose 103 H Calcium 9.0 Total Bilirubin 0.7 AST 44 ALT 40 Alkaline Phosphatase 66 Total Protein 6.8 Albumin 4.0 Globulin 2.8 Albumin/Globulin Ratio 1.4 Vitamin B12 221 L Folate 10.0 TSH 11.50 H Free T4 1.13 PFSH Medical History Melanoma 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 Hyponatremia TIA (transient ischemic attack) Scoliosis (~09/2014) Rosacea Mumps Measles Chicken pox Tinnitus Hearing loss Cataract (~09/2012) Kidney disease (~12/2014) Peripheral vascular disease (~12/2014) Hypertension Melanoma (~09/2014) Diverticulosis of large intestine without hemorrhage (01/13/18) Anxiety (06/26/17) 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) Status post nephrectomy (02/02/15) Neoplasm of kidney (12/01/14) Hyperlipidemia (02/27/11) Essential hypertension (02/27/11) Surgical History History of kidney removal Anesthesia Surgical procedure planned (~09/2014) History of nephrectomy (11/25/14) Social History marital status: household members: none Smoking Status: Never smoker alcohol intake: current substance use type: does not use Discharge Plan Discharge Plan Patient Disposition: Home Discharge orders & Medications Prescriptions: New spironolactone 25 mg tablet 25 mg PO DAILY Qty: 30 3RF Jardiance 10 mg tablet 10 mg PO DAILY Qty: 30 3RF levothyroxine [Synthroid] 75 mcg tablet 75 mcg PO DAILY Qty: 30 3RF cyanocobalamin (vitamin B-12) [Vitamin B-12] 1,000 mcg tablet 1,000 mcg PO DAILY Qty: 90 3RF Continued sennosides [senna] 8.6 mg tablet 8.6 mg PO BID Qty: 30 1RF cyclosporine [Restasis] 1 EACH dropperette 1 drp OPHTH BID Qty: 0 aspirin 81 MG tablet,delayed release (DR/EC) 81 mg PO QDAY Qty: 90 3RF mirtazapine 30 mg tablet 30 mg PO ONCE PM Qty: 90 3RF rosuvastatin 10 mg tablet 10 mg PO DAILY Qty: 90 3RF lisinopril 40 mg tablet 40 mg PO DAILY Qty: 90 3RF melatonin 5 mg Tablet 5 mg PO BEDTIME PRN (Reason: Insomnia) Patient Comments: patient says he takes 'extra' doxepin 10 mg capsule 10 mg PO DAILY Patient Comments: [NO ORIGINAL SIG] furosemide 40 mg tablet 40 mg DAILY metoprolol succinate 25 mg Tablet Extended Release 24 Hr 25 mg PO DAILY Qty: 90 0RF Discontinued amlodipine 5 mg tablet 5 mg PO DAILY Qty: 90 3RF ferrous sulfate 325 mg (65 mg iron) tablet 325 mg PO DAILY Qty: 30 0RF Follow up/Referrals: Stoney Solorzano MD [Primary Care Provider] - Visit Report/Discharge Packet Stand Alone Forms: Patient Portal/API, Stroke Signs & Symptoms Discharge Data Primary Care Provider: Stoney Solorzano PROFEE Charge Codes Discharge inpatient/observation: 19893
[2025-02-21] MEDS: SPIRONOLACTONE 25 MG TABLET PO (08:34)
[2025-02-21 08:35] VITALS: PULSE 73
[2025-02-21] MEDS: ASPIRIN EC 81 MG TABLET PO (08:35)
[2025-02-21] MEDS: SENNOSIDES 8.6 MG TABLET PO (08:35)
[2025-02-21] MEDS: lisinopriL 20 MG TABLET 40 MG PO (08:35)
[2025-02-21] MEDS: METOPROLOL ER 25 MG TABLET 12.5 MG PO (08:35)
[2025-02-21] MEDS: FUROSEMIDE 40 MG TABLET PO (08:35)
[2025-02-21] MEDS: SODIUM CHLORIDE 0.9% FLUSH 10 ML IV (08:37)
[2025-02-21 08:59] VITALS: BP 132/73; PULSE 73; RESP 16; O2SAT 95
[2025-02-21] MEDS: BISACODYL 10 MG SUPP PR (09:54)
--- NOTE | 2025-02-21 11:36 | PC.NURSE ---
1110: IV'S REMOVED. DISCHARGE PAPERWORK DISCUSSED WITH PATIENT/ DAUGHTER AT BEDSIDE. ALL QUESTIONS ANSWERED.
--- NOTE | 2025-02-21 12:37 | CM.DPNOTE ---
DCP note per Dr. Solorzano, medically cleared for dc home with . Per [facility] at [facility], unable to have SOC until next week. Cancelled ref with [facility]. per Kenzie at [facility], soonest SOC is 02/23. CARDIOVASCULAR RADIOLOGIC TECHNOLOGIST sent referral, Kenzie reports they are able to accept. CARDIOVASCULAR RADIOLOGIC TECHNOLOGIST had lengthy DCP conversation with dtr and pt in room. provided life alert, senior resources, [facility], as well as other local PP CG agency information to dtr. Pt adamant that he does not want PP CGs (has LTC insurance). CARDIOVASCULAR RADIOLOGIC TECHNOLOGIST reviewed safety concerns with pt and dtr. pt adamant about no PP CGs, agress to Home Health. dtr plans to set up increased CG services should pt be agreeable. CARDIOVASCULAR RADIOLOGIC TECHNOLOGIST provided [facility] contact to dtr. f2f placed in scanning folder. P: pt dc today home with [facility] dtr to transport. CM team will continue to follow as needed ANAY Hess
== END 2025-02-21 11:20 | disposition home health service (06) | DRG 291 ==
LOC: ED 14:25 → AC 16:27 → ICU 16:40
PROVIDERS: Family Medicine; Admitting Provider Family Medicine; Emergency Provider Emergency Medicine; Family Provider Family Medicine; PCP Family Medicine; Referring Provider Emergency Medicine; Visit Provider Family Medicine
DX: I13.0 Hypertensive heart and chronic kidney disease with heart failure and stage 1 through stage 4 chronic kidney disease, or unspecified chronic kidney disease (principal); G93.41 Metabolic encephalopathy; I50.31 Acute diastolic (congestive) heart failure; J96.01 Acute respiratory failure with hypoxia; E87.1 Hypo-osmolality and hyponatremia; N17.9 Acute kidney failure, unspecified; I48.91 Unspecified atrial fibrillation; N18.30 Chronic kidney disease, stage 3 unspecified; E78.5 Hyperlipidemia, unspecified; R45.1 Restlessness and agitation; D63.1 Anemia in chronic kidney disease; E04.1 Nontoxic single thyroid nodule; E03.9 Hypothyroidism, unspecified; F41.9 Anxiety disorder, unspecified; Z85.528 Personal history of other malignant neoplasm of kidney; Z90.5 Acquired absence of kidney
CPT/HCPCS: 36415; 71045; 71260; 80053; 82140; 82607; 82746; 82805; 83605; 83735; 83880; 84100; 84145; 84439; 84443; 84484; 85025; 85610; 87633; 87797; 93005; 93306; 94660; 96374; 96375; 97116; 97162; 97530; 99223; 99233; 99238; 99285; 99291; A9270; J1650; J1938; J2919; J7613; Q9957; Q9967

== ENCOUNTER → 2025-02-28 13:58 | Outpatient (CLI) | payer MEDICARE, OTHER, SELFPAY ==
[2025-02-21 13:52] VITALS: PULSE 62; RESP 18; O2SAT 100; BMI 28.5
[2025-02-28 14:28] LABS: Add Manual Diff / Slide Review NO; Basophils Absolute Auto 0 /uL (0-100); Basophils Percent Auto 0.8 % (0-2); Eosinophils Absolute Auto 100 /uL (0-450); Eosinophils Percent Auto 2.3 % (2-4); Hematocrit 41.6 % (41-53); Hemoglobin 14.2 g/dL (13.5-17.5); Lymphocytes Absolute Auto 900 /uL (1100-4500); Lymphocytes Percent Auto 14.5 % (25-40); Mean Corpuscular HGB Conc 34.3 % (30-36); Mean Corpuscular Hemoglobin 32.8 PG (26-34); Mean Corpuscular Volume 95.8 fL (80-100); Monocytes Absolute Auto 800 /uL (0-900); Monocytes Percent Auto 12.3 % (3-14); Neutrophils Absolute Auto 4300 /uL (1500-7000); Neutrophils Percent Auto 70.1 % (50-75); Platelet Count 274 X10^3/uL (150-400); Red Blood Cell Count 4.34 X10^6/uL (4.5-5.9); White Blood Cell Count 6.2 X10^3/uL (4.5-11.0)
[2025-02-28 14:59] LABS: Alanine Aminotransferase 32 IU/L (<50); Albumin 4.8 g/dL (3.5-5.0); Albumin Globulin Ratio 1.7 (1.0-2.8); Alkaline Phosphatase 82 U/L (38-126); Aspartate Aminotransferase 41 IU/L (17-59); BUN Creatinine Ratio 15.5 (6-22); Bilirubin Total 0.5 mg/dL (0.2-1.3); Blood Urea Nitrogen 24 mg/dL (9-20); Calcium 9.6 mg/dL (8.4-10.2); Carbon Dioxide 23 mmol/L (22-32); Chloride 98 mmol/L (98-107); Estimated Glomerular Filt Rate 44 mL/min (>60); Globulin 2.8 g/dL (1.7-4.1); Glucose 93 mg/dL (70-99); HEMOLYSIS < 15 (0-50); Sodium 134 mmol/L (137-145); Total Protein 7.6 g/dL (6.3-8.2)
[2025-02-28 15:01] LABS: Potassium 5.7 mmol/L (3.4-5.1)
== END ==
PROVIDERS: Family Provider Family Medicine; PCP Family Medicine; Referring Provider Family Medicine; Visit Provider Family Medicine
DX: I50.9 Heart failure, unspecified (principal); I48.91 Unspecified atrial fibrillation
CPT/HCPCS: 36415; 80053; 85025

== ENCOUNTER → 2025-03-08 13:36 | Outpatient (CLI) | payer MEDICARE, OTHER, SELFPAY ==
[2025-02-21 13:52] VITALS: PULSE 62; RESP 18; O2SAT 100; BMI 28.5
--- NOTE | 2025-03-08 13:40 | DI.RAD.S_ITS ---
PROCEDURE: XR CHEST 2V INDICATIONS: follow up post hospitalization TECHNIQUE: 2 views of the chest were acquired. COMPARISON: , CR, XR CHEST 1V, 02/17/2025, 5:09. FINDINGS: Surgical changes and devices: Median sternotomy changes. Surgical clips right adrenalectomy. Lungs and pleura: Asymmetric right hemidiaphragm elevation. Mild retrocardiac atelectasis. Resolution of bilateral pleural effusions. Mediastinum: Normal cardiomediastinal contour without central venous congestion. Slight prominence of the right pulmonary artery. Bones and chest wall: No suspicious bony abnormalities. Soft tissues appear unremarkable. IMPRESSION: Mild residual retrocardiac opacities suggestive of atelectasis or partially resolved pneumonia. Correlate clinically. Resolution of bilateral pleural effusions. Dictated by: Valentine Jose M.D. on 03/09/2025 at 1:03 Approved by: Valentine Jose M.D. on 03/09/2025 at 1:07
== END ==
LOC: RAD 13:39
PROVIDERS: Family Provider Family Medicine; PCP Family Medicine; Referring Provider Family Medicine; Visit Provider Family Medicine
DX: I50.9 Heart failure, unspecified (principal)
CPT/HCPCS: 71046

== ENCOUNTER → 2025-04-15 13:41 | Outpatient (CLI) | payer MEDICARE, OTHER, SELFPAY ==
[2025-02-21 13:52] VITALS: PULSE 62; RESP 18; O2SAT 100; BMI 28.5
[2025-04-15 14:27] LABS: Blood Urea Nitrogen 22 mg/dL (9-20); Calcium 9.4 mg/dL (8.4-10.2); Carbon Dioxide 26 mmol/L (22-32); Chloride 96 mmol/L (98-107); Estimated Glomerular Filt Rate 50 mL/min (>60); Glucose 104 mg/dL (70-99); HEMOLYSIS 18 (0-50); Potassium 4.6 mmol/L (3.4-5.1); Sodium 136 mmol/L (137-145)
== END ==
PROVIDERS: Family Provider Family Medicine; PCP Family Medicine; Referring Provider Family Medicine; Visit Provider Family Medicine
DX: I50.9 Heart failure, unspecified (principal); E87.5 Hyperkalemia
CPT/HCPCS: 36415; 80048